=== PATIENT | female | born 1945 | race Caucasian/White ===

== ENCOUNTER → 2018-06-30 13:05 | Outpatient (CLI) | payer MEDICARE, BC, SELFPAY ==
[2018-06-30 12:09] VITALS: BMI 29.2
== END ==
PROVIDERS: Family Provider Internal Medicine; PCP Internal Medicine; Referring Provider Obstetrics & Gynecology; Visit Provider Obstetrics & Gynecology
DX: N89.8 Other specified noninflammatory disorders of vagina (principal)
CPT/HCPCS: 87070; 87205

== ENCOUNTER → 2018-08-14 08:34 | Outpatient (CLI) | payer MEDICARE, BC, SELFPAY ==
[2018-06-30 12:09] VITALS: BMI 29.2
--- NOTE | 2018-08-14 08:37 | BI_ITS ---
MAMMOGRAPHY - BILATERAL SCREENING REASON FOR EXAM: Female, 72 years old. Routine annual screening examination. PERTINENT HISTORY: Sister with breast cancer. Grandmother with breast cancer. Remote left breast biopsy. TECHNIQUE: Digital bilateral breast fritz (3D mammographic acquisition) in the CC and MLO projections. 2-D mediolateral oblique (MLO) and craniocaudad (CC) views of both breasts were obtained. CAD: Full Field Digital Mammography with Computer Added Detection was performed. COMPARISON: Comparison is made with prior abdomen examination of July 26, 2016. FINDINGS: Breast Composition: The breasts are extremely dense, which lowers the sensitivity of mammography. There are no dominant masses or suspicious calcifications. A tissue clip marker is seen in the slightly inferior medial aspect of the left breast. Stable appearance of the small bilateral axillary lymph nodes. No other significant abnormalities are identified. There has been no significant change since the prior study. BI/SCREEN MAMM (CAD) W/FRITZ BILAT IMPRESSION: Stable bilateral screening mammogram. Yearly follow-up mammogram recommended. (A) ASSESSMENT CATEGORY: BIRADS Category 2: Benign. A letter regarding these results will be sent to the patient by the facility within 30 days. Approximately 10% of breast cancers are not detected by mammography. A normal mammogram should not delay biopsy of a clinically suspicious abnormality. [id number] Electronically Signed: Loyd Reyez, at 9:59 EDT , Service support ,
--- NOTE | 2018-08-14 08:58 | BD_ITS ---
STUDY: DUAL ENERGY X-RAY ABSORPTIOMETRY / DXA REASON FOR EXAM: Female, 72 years old. Early menopause. Loss of height. TECHNIQUE: Bone Mineral Density (BMD) measurements of lumbar spine and bilateral hips were obtained. COMPARISON: None. FINDINGS: Lumbar Spine (L1-L4): g/cm2 (1.304) / T-score (0.9) / Z-score (2.6) Findings are suggestive of normal bone density with a low fracture risk. Left Femur Total: g/cm2 (1.121) / T-score (0.9) / Z-score (2.5) Left Femoral Neck: g/cm2 (1.046) / T-score (0.1) / Z-score (1.8) Right Femur Total: g/cm2 (1.108) / T-score (0.8) / Z-score (2.4) Right Femoral Neck: g/cm2 (1.052) / T-score (0.1) / Z-score (1.9) BD/Dexa Bone Density Study IMPRESSION: The patient is considered normal as outlined below according to [place] Organization (WHO) criteria with a low fracture risk. Reference Information: The T-score is the number of standard deviations above or below the standard which is normal for young adults at their peak bone mineral density. The World Health Organization (WHO) interprets the T-scores as follows: Above -1 Normal bone density Between -1 and -2.5 Osteopenia Equal to / or below -2.5 Osteoporosis As a practical clinical guideline, osteopenia may be graded as follows: Mild -1 through -1.5 Moderate -1.6 through -2.0 Severe -2.1 through -2.4 The Z-score is the number of standard deviations above or below age-matched controls. A Z-score of less than -1.5 would be considered abnormal. References: 1. NIH Osteoporosis and Related Bone Diseases http://www.osteo.org 2. International Society for Clinical Densitometry http://www.iscd.org 3. National Osteoporosis Foundation http://www.nof.org Electronically Signed: Loyd Reyez, at 10:43 EDT , Service support ,
== END ==
PROVIDERS: Family Provider Internal Medicine; PCP Internal Medicine; Referring Provider Obstetrics & Gynecology; Visit Provider Obstetrics & Gynecology
DX: Z12.31 Encounter for screening mammogram for malignant neoplasm of breast (principal); E28.39 Other primary ovarian failure
CPT/HCPCS: 77063; 77067; 77080

== ENCOUNTER 2018-08-20 07:16 | Observation (INO) | payer MEDICARE, BC, SELFPAY ==
[2018-06-30 12:09] VITALS: BMI 29.2
[2018-08-20 07:16] VITALS: BP 168/73; PULSE 81; RESP 18; TEMP 36.1; O2SAT 99; BMI 33.7
--- NOTE | 2018-08-20 07:20 | CT_ITS ---
STUDY: CT ABDOMEN AND PELVIS WITH CONTRAST REASON FOR EXAM: Female, 72 years old. Generalized abdominal pain with nausea. History of colostomy for Hirschsprung's disease. RADIATION DOSAGE (If Supplied By Facility): CTDIvol = ( 14.49 ) mGy, DLP = ( 907.21 ) mGycm TECHNIQUE: Transaxial images were obtained from the dome of the diaphragm to the symphysis pubis without oral contrast. 100 IV Isovue 300 was administered. Sagittal and coronal images were reconstructed. Individualized dose optimization techniques were used for this CT. COMPARISON: None. FINDINGS: Mild degree of increased linear markings at the lung bases suggestive of scarring slightly worse on the right side. Coronary artery calcification. Normal liver. Normal gallbladder and extrahepatic biliary system. Normal spleen. Normal pancreas. Normal bilateral adrenal glands. Normal right kidney. Normal left kidney. Moderate sized hiatal hernia. An ostomy is seen in the left anterior mid abdomen. There is evidence of herniation of small bowel loops as well as the mesentery within the ostomy with a focally dilated small bowel loop at that site. A large amount of fecal material is seen in the colon. There is diffuse circumferential wall thickening of the rectum with dense posterior calcifications. The appendix is visualized and appears normal. There is diffuse atherosclerotic calcification of the abdominal aorta, without a demonstrated aneurysm. Normal inferior vena cava. Normal retroperitoneum. An air-fluid level is seen within the urinary bladder. This may be related to possible manipulation with a Young catheter. Clinical correlation is recommended. There is a small umbilical hernia containing fat. There are diffuse degenerative changes of the visualized lumbar spine. CT/Abdomen/Pelvis WITH Contrast IMPRESSION: An ostomy seen in the left anterior mid abdominal wall with herniation of small bowel loops with dilated small bowel loops and air-fluid level. Bowel obstruction and possible strangulation should be ruled out. Large amount of fecal material is seen in the colon. Electronically Signed: Loyd Reyez, at 8:49 EDT , Service support ,
--- NOTE | 2018-08-20 07:22 | ED.VIS.GEN ---
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 having BM in colostomy currently. Narrative: Patient states she has a colostomy because of defect. She has had several bowel obstructions in the past. She states she felt like she had one a week ago, the pain was similar to this but it resolved spontaneously. She did not come to the hospital. She cannot tell me any details about it because she feels so sick and she has very bad hearing. Prior similar symptoms: Yes Recent Illness/Hospitalization: Yes - a cold that is improving. no hospitalizations. 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 Pressley - surgery Prior records reviewed: Yes - 1 prior ED visit. No prior abd imaging here. Surgical History: - - colostomy Lives: Spouse/ Significant Other Smoking Status: Never smoker Review of Systems ROS: Unable to Obtain - limited eval due to very hard of hearing and acuity General: Reports: Malaise. Denies: Chills, Fever Cardiovascular: Denies: Chest pain, Palpitations Respiratory: Reports: Cough. Denies: Dyspnea, Sputum Gastrointestinal: Reports: Abdominal pain, Nausea. Denies: Vomiting, Diarrhea, Melena, Hematochezia Genitourinary: Denies: Dysuria, Hematuria Musculoskeletal: Denies: Neck pain, Back pain, Swelling Neurological: Denies: Headache, Weakness, Numbness Physical Exam Inital Vital Signs reviewed: Yes - hypertensive. otherwise, normal. General: Well nourished, Well developed, No Acute Distress - but ill-appearing, nauseated, holding emesis bag Head: Normocephalic, Atraumatic Eyes: Perrl, EOMI ENT: Moist mucous membranes, No rhinorrhea Neck: Supple, Nontender, No lymphadenopathy Cardiovascular: Regular rate, Regular rhythm, No murmurs Respiratory: No distress, CTA bilaterally, Chest nontender Abdomen: Soft, Nondistended, Tender - diffusely. worse throughout R side. colostomy LLQ, mildly tender around it, normal-appearing, nonbloody nonmelanotic loose stool within bag. no palpable hernias/masses., Guarding - throughout R side, Hypoactive bowel sounds. Negative for: Rebound tenderness Back: Nontender, Normal Inspection Extremities: Nontender, No edema Skin: Normal color, No rash Neurological: Alert, Oriented x3, Cranial nerves II-XII grossly intact, Normal Strength, Normal Sensation Psychological: Normal affect, Normal Mood Diagnostic/Tx/Re-eval Impressions Abdomen/Pelvis CT 08/20/18 07:20 IMPRESSION: An ostomy seen in the left anterior mid abdominal wall with herniation of small bowel loops with dilated small bowel loops and air-fluid level. Bowel obstruction and possible strangulation should be ruled out. Large amount of fecal material is seen in the colon. Electronically Signed: Loyd Reyez, at 8:49 EDT , Service support , 08/20/18 07:20 Abdomen/Pelvis WITH Contrast [CT] Stat Laboratory Results 08/20/18 08/20/18 07:30 07:30 WBC 9.7 RBC 4.74 Hgb 13.8 Hct 41.0 MCV 86.5 MCH 29.1 MCHC 33.7 RDW 13.7 RDW Differential 43.2 Plt Count 304 MPV 10.8 Immature Gran % (Auto) 0.100 Neut % (Auto) 56.8 Lymph % (Auto) 30.1 [place] % (Auto) 8.0 Eos % (Auto) 4.6 Baso % (Auto) 0.4 Absolute Neuts (auto) 5.5 Absolute Lymphs (auto) 2.90 Total Counted Not Reportable Sodium 139 Potassium 2.8 L Chloride 104 Carbon Dioxide 26.0 Anion Gap 9 BUN 13 Creatinine 0.78 Estim Creat Clear Calc 61.66 Est GFR (MDRD) Af Amer 94 Est GFR (MDRD) Non-Af 77 BUN/Creatinine Ratio 16.7 Glucose 173 H Calcium 8.9 Total Bilirubin 0.40 AST 24 ALT 28 Alkaline Phosphatase 129 H Total Protein 7.4 Albumin 3.9 Globulin 3.5 Albumin/Globulin Ratio 1.1 Lipase 99 - Medical Decision Making Patient in a significant amount of pain. She was initially given morphine 4 mg and Zofran along with some gentle IV fluid hydration, however she had no relief from the discomfort, no improvement in her nausea, unable to drink any of the contrast that we had her attempt. She was given Dilaudid and Phenergan subsequently, and as soon as we had confirmation that her renal function was good, she was sent for IV contrasted CT, which radiology interpreted as herniation of small bowel loops into her colostomy area with accompanying acute small bowel obstruction and possible strangulation of small bowel. I was not able to localize this this definitively, clinically with palpation. Discussed with Dr. Luke with surgery who evaluated the patient in the emergency department and is taking her to surgery emergently to avoid perforation and bowel necrosis. - Critical Care Time Critical care time (excluding procedures): 30-74 minutes - 35 min, Discussing w/Patient &/or Family/Anesthesia Director, Discussing w/Consultants, Arranging Admission or Transfer, Performing Direct Patient Care at Bedside ED Disposition - Plan for ED Patient: Disposition: Acute Care [facility] Diagnosis: Small bowel obstruction, Strangulation of small intestine Referrals: Jordi Corona MD [Primary Care Provider] -
[2018-08-20] MEDS: 0.9% Normal Saline 1,000 ML 200 ML IV (07:34)
[2018-08-20] MEDS: Morphine 4 MG/ML Syringe IV (07:34)
[2018-08-20] MEDS: Ondansetron 4 MG/2 ML Vial IV (07:34)
[2018-08-20 07:55] LABS: Absolute Neutrophil Count 5.5 X10^3/uL (2.0-7.7); Basophil# 0.04 X10^3/uL; Basophil% 0.4 % (0-1); Eosinophil# 0.44 X10^3/uL; Eosinophils% 4.6 % (0-5); Hemoglobin 13.8 g/dl (12.0-15.0); Lymphocyte % 30.1 % (19-41); Mean Corp Hgb Conc 33.7 g/gl (32-36); Mean Corpuscular Hgb 29.1 pg (27.0-32.0); Mean Corpuscular Volume 86.5 fL (81-99); Mean Platelet Vol. 10.8 fl (6.2-12.0); Monocyte# 0.77 X10^3/uL; Neutrophil # 5.49 X10^3/uL (2.7-7.7); Neutrophil % 56.8 % (47-70); Platelet Count 304 K/mm3 (150-450); RBC Distribution Width CV 13.7 % (11.6-14.6); RBC Distribution Width SD 43.2 fl (35.1-43.9); Red Blood Count 4.74 M/mm3 (4.2-5.4); White Blood Count 9.7 K/mm3 (4.4-11.0)
[2018-08-20] MEDS: HYDROmorphone 0.5 MG/0.5 ML SYRINGE IV (07:56)
[2018-08-20] MEDS: proMETHazine 25 MG/ML Syringe 6.25 MG IV (07:56)
[2018-08-20 08:00] LABS: POSITIVE COUNT NO; POSITIVE DIFFERENTIAL NO; POSITIVE MORPHOLOGY NO
[2018-08-20 08:08] LABS: ALB/GLOB Ratio 1.1 RATIO (0.9-2.4); AST(SGOT) 24 U/L (15-37); Alanine Aminotransfer ALT/SGPT 28 U/L (13-56); Albumin, Serum 3.9 g/dL (3.2-5.0); Alkaline Phosphatase 129 U/L (45-117); Anion Gap 9 (5-15); BUN 13 mg/dL (7-18); BUN/Creat Ratio 16.7 RATIO (10-20); Calcium,Total 8.9 mg/dL (8.5-10.1); Chloride 104 mmol/L (98-107); Creatinine, Serum 0.78 mg/dL (0.55-1.02); EST Glomerular Filtration Rate 77 mL/min (>60); Est Glom Filt Rate - Afr Amer 94 mL/min (>60); Estimated Creatinine Clearance 61.66 ml/min; Globulin 3.5 g/dL (2.2-4.2); Glucose 173 mg/dL (74-106); Lipase 99 U/L (73-393); Potassium 2.8 mmol/L (3.5-5.1); Protein, Total 7.4 g/dL (6.4-8.2); Sodium Level 139 mmol/L (136-145)
[2018-08-20] MEDS: HYDROmorphone 1 MG/ML Syringe IV (08:16)
--- NOTE | 2018-08-20 09:42 | NURSING ---
MED SURG/ SURGERY ALIDA FLOWER
--- NOTE | 2018-08-20 09:50 | ED.RN ---
pt refuses weinstein. states it cannot be placed while I'm awake. dr perez made aware.
--- NOTE | 2018-08-20 09:51 | EKG12_ITS ---
Test Reason : PRE OP Blood Pressure : / mmHG Vent. Rate : 082 BPM Atrial Rate : 082 BPM P-R Int : 134 ms QRS Dur : 088 ms QT Int : 410 ms P-R-T Axes : 049 -14 051 degrees QTc Int : 479 ms Normal sinus rhythm Nonspecific ST and T wave abnormality Abnormal ECG Confirmed by ZAKIYA CASTELLANOS, MICHELET ([id number]), manuscript editor CAROLYNN BALL ([id number]) on 08/22/2018 11:06:26 AM Referred By: Danica Almaguer Confirmed By:MICHELET SIGALA MD
[2018-08-20] MEDS: Potassium Chloride 10mEq/100mL 10 MEQ/100 ML IV.SOLN. 100 MEQ IV BOLUS ×4 (09:52→14:41)
[2018-08-20 09:53] LABS: Mucous, Urine 0 SEEN /hpf (<or=2+)
[2018-08-20 09:55] VITALS: BP 133/91; PULSE 93; RESP 18; TEMP 36.4; O2SAT 98; BMI 33.7
[2018-08-20 09:56] LABS: Color, Urine Yellow (Yellow); Glucose, Dipstick Normal (Normal); Ketone-Dipstick Negative (Negative); Leukocyte Esterase-Dipstick 500 /ul (Negative); Nitrite-Dipstick Negative (Negative); Occult Blood-Urine 10 /ul (Negative); Protein-Dipstick Negative (Negative); Urine Bilirubin Dipstick Negative (Negative); Urine Clarity Sl. Cloudy (Clear); Urine Urobilinogen Normal (Normal)
[2018-08-20 10:05] VITALS: BP 133/91; PULSE 99; RESP 18; O2SAT 97
[2018-08-20 10:06] LABS: Bacteria 2+ /hpf (None Seen); Red Blood Cells-Urine 0-5 SEEN /hpf (0-5); Squamous Epithelial Cells - UA 0-5 SEEN /hpf (5-10); White Blood Cells 25-50 SEEN /hpf (0-5)
--- NOTE | 2018-08-20 10:14 | NURSING ---
NEW ROOM 306
--- NOTE | 2018-08-20 10:35 | HP.PCM_ITS ---
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 Small bowel obstruction. The patient is a 72 year old F who presented with acute onset of severe amount of abdominal pain which started this morning. Patient has an extensive abdominal surgical history. She has a history of Hirschsprung's disease. She had had four colostomy revisions in the past with her last one [place] [address] Doshi. Patient notes she had considerable amount of pain/discomfort last week which lasted a few days. She noted this eventfully went away. Then towards the end of last week she had developed an upper respiratory congestion. She noted a lot of coughing which lead to severe amount of pain. She noted nausea associated with the pain. She denies vomiting. She notes changing her ostomy bag more frequently within the last week. She denies urinary issues unless she has the abdominal pain and then this makes it hard to urinate. She has a little urinary incontinence otherwise she has no problems. She notes every 3-4 months she has episodes of abdominal pain which last a few days. She takes colace and it resolves within a few days. She denies being told she has a hernia. She notes taking a potassium supplement at home. CT scan of the ab/pel demonstrated moderate sized hiatal hernia, herniation of small bowel loops as well as mesentery within the ostomy with focally dilated small bowel loop at the site. Large amount of fecal material within the colon. Diffuse thickening of the rectum. Small umbilical hernia. Air-filled level seen within urinary bladder. WBC 9.7, Hgb 13.8, Hct 41.0, Plt 304. Potassium 2.8. Past Medical History Past Medical History (Chronic Problems): Chronic Problems (Last Updated 07/01/18 @ 03:32 by Danica Almaguer MD) Congenital anomaly of intestine (Chronic) Menopausal vasomotor syndrome (Chronic) Hypertonicity of bladder (Chronic) Hypothyroidism (Chronic) Colostomy status (Chronic) Hyperlipidemia (Chronic) Generalized arthritis (Chronic) Anxiety (Chronic) Essential hypertension (Chronic) Medical History: Medical History (Last Reviewed 08/20/18 @ 10:49 by Thu Birch PA-C) Congenital anomaly of intestine (Chronic) Q45.9 Menopausal vasomotor syndrome (Chronic) N95.1 Hypertonicity of bladder (Chronic) N31.8 Hypothyroidism (Chronic) E03.9 Hyperlipidemia (Chronic) E78.5 Generalized arthritis (Chronic) M19.90 Anxiety (Chronic) F41.9 Essential hypertension (Chronic) I10 Hirschsprung's disease Q43.1 colostomy Impaired fasting glucose R73.01 Allergies Sulfa (Sulfonamide Antibiotics) Allergy (Verified 08/20/18 07:25) Hives Home Medications: Ambulatory Orders Medication Instructions Recorded Ascorbic Acid [Vitamin C] 500 mg PO DAILY@0800 08/24/16 Calcium Carbonate/Vitamin D3 1 ea PO DAILY 08/24/16 [Caltrate 600 Plus D3 Tablet] Cholecalciferol (Vitamin D3) 1,000 unit PO DAILY 08/24/16 [Vitamin D3] Diltiazem HCl [Tiazac] 420 mg PO DAILY 08/24/16 Esomeprazole Mag Trihydrate 10 mg PO QHS 08/24/16 [Nexium] Levothyroxine [Synthroid] 50 mcg PO DAILY 08/24/16 Losartan Potassium [Cozaar] 25 mg PO BID 08/24/16 Multivitamin [Daily Multiple 1 ea PO DAILY 08/24/16 Vitamin] Tolterodine Tartrate [Detrol LA] 4 mg PO DAILY 08/24/16 hydroCHLOROthiazide 12.5 mg PO DAILY 08/24/16 [Hydrochlorothiazide] traMADol [Ultram (G)] 50 mg PO Q6H PRN PRN 08/24/16 antiarthritic combination no.2 900 1 mg PO DAILY tab 06/30/18 mg tablet hydrocortisone 2.5 % topical cream 1 applic TOPICAL QHS 06/30/18 meloxicam 15 mg tablet 15 mg PO DAILY 06/30/18 pravastatin 10 mg tablet 20 mg PO QHS tab 06/30/18 Venlafaxine XR [Effexor Xr] 75 mg PO DAILY 08/20/18 Surgical History: Surgical History (Last Updated 06/30/18 @ 11:54 by Clarita Weldon) Colostomy status (Chronic) Z93.3 H/O: hysterectomy Z90.710 History of tonsillectomy Z90.89 Hx of total knee arthroplasty Z96.659 bilateral S/P colostomy Z93.3 Surgical History: appendectomy - 1968, hysterectomy - Total- 1984, - - colostomy 1967, 1972, 1982, 1985 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 Lives: Spouse/ Significant Other Smoking Status: Never smoker - *Family History Maternal Family History: Family History (Last Updated 06/30/18 @ 11:55 by Clarita Weldon) Mother Hypertension Father Myocardial infarction Grandmother Liver cancer Sister Breast cancer History Items: Pulmonary Disease Paternal Family History: Family History (Last Updated 06/30/18 @ 11:55 by Clarita Weldon) Mother Hypertension Father Myocardial infarction Grandmother Liver cancer Sister Breast cancer History Items: Heart Disease Review of Systems Constitutional: Reports: Anorexia, Weight Change - weight loss from 168 to 161 HEENT: Reports: Difficulty Hearing Cardiovascular: Reports: Chest Pressure - upper respiratory infection Respiratory: Reports: Cough Gastrointestinal: Reports: Abdominal Pain, Diarrhea, Nausea. Denies: Hematochezia, Melena, Vomiting Genitourinary: Reports: Incontinence, Urgency Musculoskeletal: Denies: Joint Pain, Joint Tenderness Skin: Denies: Rash, Wounds Neurological: Denies: Numbness, Tingling, Focal weakness Psychiatric: Reports: Anxiety Hematologic/ Lymphatic: Denies: Easy Bruising, Easy Bleeding VTE Information - Inpt Only VTE Present on Admission: Yes VTE Mechan Device Prophylaxis: SCD's Patient Problems: Active and Suspected Problems (Last Updated 07/01/18 @ 03:32 by Danica Almaguer MD) Small bowel obstruction (Acute) Strangulation of small intestine (Acute) Abdominal pain (Acute) - Physical Exam General: Alert, Oriented x3, Cooperative HEENT: Atraumatic, PERRLA, EOMI, Normocephalic Neck: Supple, No JVD, Negative Carotid Bruits Lungs: Clear to auscultation, Normal air movement Cardiovascular: Regular rate, No murmurs Abdomen: Soft, Distended, Obese, Guarding, Rebound Tenderness, Tender - generalized, Hernia - within the colostomy, - - multiple healed incisions Extremities: No edema, Capillary Refill Less than 3 Seconds Skin: No rashes, No breakdown Musculoskeletal: No Tenderness to Palpation of Joints or Extremities Neurological: Neuro grossly intact Psych/Mental Status: Normal Affect, Appropriate Vital Signs Temp Pulse Resp BP Pulse Ox 97.5 F L 99 18 133/91 H 97 08/20/18 09:55 08/20/18 10:05 08/20/18 10:05 08/20/18 10:05 08/20/18 10:05 Oxygen Delivery Method Room Air Weight: 166 lb 14.239 oz Body Mass Index (BMI) 33.7 Laboratory Tests Past 24 Hrs 08/20/18 08/20/18 08/20/18 07:30 07:30 09:45 WBC 9.7 RBC 4.74 Hgb 13.8 Hct 41.0 MCV 86.5 MCH 29.1 MCHC 33.7 RDW 13.7 RDW Differential 43.2 Plt Count 304 MPV 10.8 Immature Gran % (Auto) 0.100 Neut % (Auto) 56.8 Lymph % (Auto) 30.1 [place] % (Auto) 8.0 Eos % (Auto) 4.6 Baso % (Auto) 0.4 Absolute Neuts (auto) 5.5 Absolute Lymphs (auto) 2.90 Total Counted Not Reportable Sodium 139 Potassium 2.8 L Chloride 104 Carbon Dioxide 26.0 Anion Gap 9 BUN 13 Creatinine 0.78 Estim Creat Clear Calc 61.66 Est GFR (MDRD) Af Amer 94 Est GFR (MDRD) Non-Af 77 BUN/Creatinine Ratio 16.7 Glucose 173 H Calcium 8.9 Total Bilirubin 0.40 AST 24 ALT 28 Alkaline Phosphatase 129 H Total Protein 7.4 Albumin 3.9 Globulin 3.5 Albumin/Globulin Ratio 1.1 Lipase 99 Urine Color Yellow Urine Clarity Sl. Cloudy Urine pH 7.0 Ur Specific [place] 1.010 Urine Protein Negative Urine Glucose (UA) Normal Urine Ketones Negative Urine Occult Blood 10 H Urine Nitrite Negative Urine Bilirubin Negative Urine Urobilinogen Normal Ur Leukocyte Esterase 500 H Urine RBC 0-5 SEEN Urine WBC 25-50 SEEN Ur Squamous Epith Cells 0-5 SEEN Urine Bacteria 2+ Urine Mucus 0 SEEN Assessment/Plan All Active Problems (Last Updated 07/01/18 @ 03:32 by Danica Almaguer MD) Small bowel obstruction (Acute) Strangulation of small intestine (Acute) Abdominal pain (Acute) I am seeing this patient in conjunction with Dr. Pressley Impression: Left upper quadrant hernia associated with small bowel dilatation at the colostomy site. Plan: Patient has requested Dr. Pressley. Patient was discussed with Dr. Pressley. We will plan to admit patient for observation to med/surg floor. Recommend NPO, IV hydration, and bowel rest. Obtain CXR. Surgical intervention may be recommended at this hospitalization if patient's symptoms progress. Future repair of the hernia will need to be discussed with the patient at some point, hopefully in an elective setting. Patient has had the opportunity to ask and have questions answered. Patient verbally understands and agrees with the plan. Thank you for allowing us to participate in this patient's care. Code Visit Office Visits / Consults: [id number] IP Consult L3
[2018-08-20 10:41] VITALS: BMI 33.7
[2018-08-20 10:42] VITALS: BP 136/66; PULSE 90; RESP 18; TEMP 36.6; O2SAT 97
[2018-08-20 10:58] VITALS: BMI 33.7
--- NOTE | 2018-08-20 11:25 | RAD_ITS ---
STUDY: X-RAY CHEST REASON FOR EXAM: Female, 72 years old. Cough, shortness of breath and abdominal pain. TECHNIQUE: PA and lateral views of the chest. COMPARISON: None. FINDINGS: Hyperinflation. Mild increased markings at the right lung base suggestive of atelectasis and/or scarring. There is no demonstrated pleural abnormality. Normal size heart. Normal mediastinum and zoltan. Normal visualized pulmonary arteries. There is atherosclerotic calcification of the aortic arch with tortuosity. There is demineralization of the osseous structures. Normal visualized ribs, clavicles, and shoulders. Moderate sized hiatal hernia. RAD/Chest PA and Lateral IMPRESSION: Hyperinflation. Mild increased markings at the right lung base suggestive of a linear atelectasis and/or scarring. Moderate sized hiatal hernia. Electronically Signed: Loyd Reyez, at 13:11 EDT , Service support ,
[2018-08-20 16:12] VITALS: BP 152/83; PULSE 86; RESP 18; TEMP 36.8; O2SAT 95
[2018-08-20] MEDS: Lactated Ringers 1,000 ML 150 ML IV ×2 (16:23→23:24)
[2018-08-20] MEDS: guaiFENesin 10 ML UDC (200MG/10ML) 20 ML PO (19:23)
[2018-08-20 20:57] VITALS: BP 134/87; PULSE 92; RESP 16; TEMP 37.6; O2SAT 100
[2018-08-20] MEDS: Pantoprazole Sodium 20 MG Tablet PO (21:18)
[2018-08-20] MEDS: Pravastatin 20 MG Tablet PO (21:18)
[2018-08-20] MEDS: Losartan Potassium 25 MG Tablet PO (21:18)
[2018-08-20] MEDS: Morphine 2 MG/ML Syringe IV (23:46)
[2018-08-21 03:06] VITALS: BP 138/65; PULSE 95; RESP 16; TEMP 37.6; O2SAT 93
[2018-08-21 05:44] LABS: Absolute Lymphocyte Count 1.44 X10^3/ul (0.83-4.51); Absolute Neutrophil Count 4.4 X10^3/uL (2.0-7.7); Basophil# 0.03 X10^3/uL; Basophil% 0.4 % (0-1); Eosinophil# 0.26 X10^3/uL; Eosinophils% 3.9 % (0-5); Hematocrit 36.7 % (37-47); Lymphocyte # 1.44 X10^3/ul (4.0); Lymphocyte % 21.5 % (19-41); Mean Corp Hgb Conc 32.7 g/gl (32-36); Mean Corpuscular Hgb 28.9 pg (27.0-32.0); Mean Corpuscular Volume 88.4 fL (81-99); Mean Platelet Vol. 11.1 fl (6.2-12.0); Neutrophil # 4.36 X10^3/uL (2.7-7.7); Neutrophil % 65.1 % (47-70); Platelet Count 285 K/mm3 (150-450); Red Blood Count 4.15 M/mm3 (4.2-5.4); White Blood Count 6.7 K/mm3 (4.4-11.0)
[2018-08-21 05:49] LABS: Anion Gap 6 (5-15); BUN 7 mg/dL (7-18); BUN/Creat Ratio 11.5 RATIO (10-20); Calcium,Total 8.1 mg/dL (8.5-10.1); Chloride 110 mmol/L (98-107); Creatinine, Serum 0.61 mg/dL (0.55-1.02); EST Glomerular Filtration Rate 103 mL/min (>60); Est Glom Filt Rate - Afr Amer 124 mL/min (>60); Estimated Creatinine Clearance 61.66 ml/min; Glucose 105 mg/dL (74-106); Potassium 3.3 mmol/L (3.5-5.1); Sodium Level 142 mmol/L (136-145)
[2018-08-21] MEDS: guaiFENesin 10 ML UDC (200MG/10ML) 20 ML PO ×2 (05:52→11:30)
[2018-08-21] MEDS: Levothyroxine 50 MCG Tablet PO (05:52)
[2018-08-21] MEDS: Lactated Ringers 1,000 ML 150 ML IV ×2 (05:52→14:25)
[2018-08-21 05:54] LABS: POSITIVE COUNT NO; POSITIVE DIFFERENTIAL NO; POSITIVE MORPHOLOGY NO
[2018-08-21 07:03] VITALS: O2SAT 93
--- NOTE | 2018-08-21 10:11 | PN.SURG_ITS ---
Patient Problems: Active and Suspected Problems (Last Reviewed 08/20/18 @ 10:49 by Tuh Birch PA-C) Small bowel obstruction (Acute) Strangulation of small intestine (Acute) Abdominal pain (Acute) Subjective: Patient evaluated resting comfortably in bed. Her main complaint is her cough. Patient notes abdominal soreness. She notes her abdominal pain is much improved. She denies nausea. She notes loose stool within her ostomy bag. - Physical Exam General: Alert, Oriented x3, Cooperative Abdomen: Bowel Sounds Present, Soft, Distended - slightly, Tender - generalized; mild tenderness, Hernia - Parastomal hernia, - - Ostomy intact Vital Signs Temp Pulse Resp BP Pulse Ox 99.7 F H 95 16 138/65 H 93 08/21/18 03:06 08/21/18 03:06 08/21/18 03:06 08/21/18 03:06 08/21/18 07:03 Oxygen Delivery Method Room Air Weight: 166 lb 14.239 oz Body Mass Index (BMI) 33.7 Intake and Output for Last 24 Hours 08/19/18 08/20/18 08/21/18 23:59 23:59 23:59 Intake Total 1875 / 1875 981 / 981 Output Total 800 / 800 Balance 1075 / 1075 981 / 981 Laboratory Tests Past 24 Hrs 08/20/18 08/21/18 08/21/18 09:45 05:00 05:00 WBC 6.7 RBC 4.15 L Hgb 12.0 Hct 36.7 L MCV 88.4 MCH 28.9 MCHC 32.7 RDW 14.0 RDW Differential 45.0 H Plt Count 285 MPV 11.1 Immature Gran % (Auto) 0.100 Neut % (Auto) 65.1 Lymph % (Auto) 21.5 Dickens % (Auto) 9.0 Eos % (Auto) 3.9 Baso % (Auto) 0.4 Absolute Neuts (auto) 4.4 Absolute Lymphs (auto) 1.44 Total Counted Not Reportable Sodium 142 Potassium 3.3 L Chloride 110 H Carbon Dioxide 26.0 Anion Gap 6 BUN 7 Creatinine 0.61 Estim Creat Clear Calc 61.66 Est GFR (MDRD) Af Amer 124 Est GFR (MDRD) Non-Af 103 BUN/Creatinine Ratio 11.5 Glucose 105 Calcium 8.1 L Urine RBC 0-5 SEEN Urine WBC 25-50 SEEN Ur Squamous Epith Cells 0-5 SEEN Urine Bacteria 2+ Urine Mucus 0 SEEN Medical Necessity - Tobacco Use Smoking Status: Never smoker Assessment/Plan All Active Problems (Last Reviewed 08/20/18 @ 10:49 by Thu Birch PA-C) Small bowel obstruction (Acute) Strangulation of small intestine (Acute) Abdominal pain (Acute) I am seeing this patient in conjunction with Dr. Pressley Parastomal hernia Will advance to clear liquids and then full liquids. Probable discharge today or tomorrow pending tolerating a diet. We will continue to monitor this patient Will refer patient to Dr. Quijano for large parastomal hernia and colonoscopy Code Visit Inpatient E&M: 75225 Subs Hosp L1
--- NOTE | 2018-08-21 10:42 | CASEMGMT ---
RN CM in to see patient to inquire about discharge needs. Patient denies DME or HHC needs at this time. Patient did inquire about ostomy supplies and billing through [facility]. RN ELVIRA updated patient that CM would inquire with Wound/Ostomy Nurse regarding resources. VIOLA FELIX called Wound/Ostomy Nurse and updated regarding request. CM will remain available should discharge needs arise.
[2018-08-21 10:47] VITALS: BP 150/103; PULSE 79; RESP 18; TEMP 37.1; O2SAT 97
[2018-08-21] MEDS: Losartan Potassium 25 MG Tablet PO (10:53)
[2018-08-21] MEDS: dilTIAZem CD 120 MG Capsule PO (10:53)
[2018-08-21] MEDS: Venlafaxine XR 75 MG Capsule PO (10:53)
[2018-08-21] MEDS: hydroCHLOROthiazide 12.5mg 12.5 MG PO (10:54)
[2018-08-21] MEDS: Tolterodine Tartrate 4 MG CAP.SA PO (10:54)
[2018-08-21] MEDS: dilTIAZem CD 300 MG Capsule PO (10:57)
[2018-08-21] MEDS: Enoxaparin 40 MG/0.4 ML Syringe SC (10:58)
--- NOTE | 2018-08-21 13:34 | NURSING ---
Was asked to see patient to assist in getting colostomy supplies for patient. pt states she used to get her ostomy supplies through [facility]. She is starting to get close to running out. Discussed a few options for patient. Agreed to get supplies through [employer] called and ordered supplies through [employer] at this time. script from Dr Corona faxed. Pt is aware that supplies should be there by Saturday or Saturday of next week. Pt was given the number for [facility] in case there are any issues. Pt very appreciative.
[2018-08-21 14:34] VITALS: BP 143/76; PULSE 72; RESP 18; TEMP 36.6; O2SAT 94
== END 2018-08-21 19:18 | disposition home or self-care (01) ==
LOC: ED 09:37 → MS3 10:15 → MS2 12:33 → MS3 08-21 07:16
PROVIDERS: Physician Assistant; Admitting Provider Surgery; Emergency Provider Emergency Medicine; Family Provider Internal Medicine; PCP Internal Medicine; Visit Provider Surgery
DX: K43.3 Parastomal hernia with obstruction, without gangrene (principal); I10 Essential (primary) hypertension; M19.90 Unspecified osteoarthritis, unspecified site; G89.29 Other chronic pain; E03.9 Hypothyroidism, unspecified; N31.8 Other neuromuscular dysfunction of bladder; E78.5 Hyperlipidemia, unspecified; Z79.899 Other long term (current) drug therapy; Q43.1 Hirschsprung's disease; F41.9 Anxiety disorder, unspecified; J06.9 Acute upper respiratory infection, unspecified
CPT/HCPCS: 36415; 71046; 74177; 80048; 80053; 81001; 83690; 85025; 93005; 96361; 96372; 96374; 96375; 96376; 99218; 99285; J7030; J7120; Q9967; A4216; G0378; J2405

== ENCOUNTER 2018-10-08 22:38 | Emergency (ER) | payer MEDICARE, BC, SELFPAY ==
[2018-10-08 22:40] VITALS: BP 157/96; PULSE 95; RESP 19; TEMP 36.8; O2SAT 93; BMI 32.3
--- NOTE | 2018-10-08 22:56 | CT_ITS ---
STUDY: CT ABDOMEN AND PELVIS WITHOUT CONTRAST REASON FOR EXAM: Female, 73 years old. Postop abdominal pain. Patient had colostomy revision of one week ago. Patient now has nausea, vomiting and diaphoresis. RADIATION DOSAGE (If Supplied By Facility): CTDIvol = ( 9.75 ) mGy, DLP = ( 472.43 ) mGycm TECHNIQUE: Transaxial images were obtained from the dome of the diaphragm to the symphysis pubis without oral contrast, and without intravenous contrast. Sagittal and coronal images were reconstructed. Individualized dose optimization techniques were used for this CT. COMPARISON: CT of the abdomen and pelvis dated August 20, 2018. FINDINGS: There is a right-sided pleural effusion. There is left basilar subsegmental atelectasis and right basilar subsegmental atelectasis. There is right basilar airspace consolidation and/or atelectasis. The visualized portions of the heart are within normal limits. There appears to be dense calcification of the mitral anulus. Normal liver. Normal gallbladder and extrahepatic biliary system. Normal spleen. There is diffuse atrophy of the pancreas. Normal bilateral adrenal glands. Normal right kidney. Normal left kidney. There is a large hiatal hernia, similar to previous study. There is dilated small bowel within the left side of the abdomen primarily. Maximum transverse dimension of the small bowel measures approximately 4 cm in greatest transverse dimension. The transition point it probably is associated with incarcerated bowel loops in a parastomal ventral hernia left lower quadrant. A similar appearance was present on the previous CT. Stool is visible throughout most of the colon. There may have been partial resection of the descending colon with what may represent a Cunha's pouch. There is non-visualization of the appendix. There is multifocal atherosclerotic calcification of the abdominal aorta, without a demonstrated aneurysm. Normal inferior vena cava. Normal retroperitoneum. Normal urinary bladder. There is absence of the uterus consistent with a prior hysterectomy. There is a left lower quadrant ostomy site with parastomal ventral hernia. There are diffuse degenerative changes of the visualized lumbar spine. CT/Abdomen/Pelvis without Cont IMPRESSION: Proximal small bowel obstruction possibly related to incarcerated bowel within a parastomal left lower quadrant ventral hernia. Electronically Signed: Laura Alves MD at 0:14 EDT , Service support ,
[2018-10-08] MEDS: Morphine 4 MG/ML Syringe IV (23:13)
[2018-10-08] MEDS: 0.9% Normal Saline 1,000 ML 1000 ML IV (23:13)
[2018-10-08] MEDS: Ondansetron 4 MG/2 ML Vial IV (23:13)
[2018-10-08 23:15] LABS: Absolute Lymphocyte Count 0.88 X10^3/ul (0.83-4.51); Absolute Neutrophil Count 8.2 X10^3/uL (2.0-7.7); Basophil# 0.03 X10^3/uL; Basophil% 0.3 % (0-1); Eosinophil# 0.07 X10^3/uL; Eosinophils% 0.7 % (0-5); Hematocrit 41.2 % (37-47); Lymphocyte # 0.88 X10^3/ul (4.0); Lymphocyte % 9.2 % (19-41); Mean Corpuscular Hgb 29.2 pg (27.0-32.0); Mean Platelet Vol. 9.8 fl (6.2-12.0); Monocyte# 0.42 X10^3/uL; Monocyte% 4.4 % (0-10); Neutrophil # 8.17 X10^3/uL (2.7-7.7); Platelet Count 354 K/mm3 (150-450); RBC Distribution Width CV 13.8 % (11.6-14.6); RBC Distribution Width SD 43.5 fl (35.1-43.9); Red Blood Count 4.79 M/mm3 (4.2-5.4); White Blood Count 9.6 K/mm3 (4.4-11.0)
[2018-10-08 23:17] LABS: POSITIVE COUNT NO; POSITIVE DIFFERENTIAL NO; POSITIVE MORPHOLOGY NO
[2018-10-08 23:32] LABS: ALB/GLOB Ratio 0.8 RATIO (0.9-2.4); AST(SGOT) 96 U/L (15-37); Alanine Aminotransfer ALT/SGPT 71 U/L (13-56); Albumin, Serum 3.5 g/dL (3.2-5.0); Alkaline Phosphatase 132 U/L (45-117); Anion Gap 7 (5-15); BUN 7 mg/dL (7-18); BUN/Creat Ratio 10.9 RATIO (10-20); Calcium,Total 9.1 mg/dL (8.5-10.1); Chloride 102 mmol/L (98-107); Creatinine, Serum 0.64 mg/dL (0.55-1.02); EST Glomerular Filtration Rate 97 mL/min (>60); Est Glom Filt Rate - Afr Amer 117 mL/min (>60); Estimated Creatinine Clearance 58.26 ml/min; Globulin 4.2 g/dL (2.2-4.2); Glucose 162 mg/dL (74-106); Lipase 162 U/L (73-393); Protein, Total 7.7 g/dL (6.4-8.2); Sodium Level 140 mmol/L (136-145)
--- NOTE | 2018-10-09 00:33 | NURSING ---
OK TO CANCEL SEPSIS SCREENING, PER DR TORRES
--- NOTE | 2018-10-09 01:00 | ED.VISSUMM ---
- ER Visit Summary Date of Service: 10/09/18 Chief Complaint: Abdominal pain, nausea, vomiting. History of Present Illness: The patient is a 73 F who presents with abdominal pain and vomiting. 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 She had surgery at [facility] 6 days ago for a parastomal hernia. Her pain was controlled while in the hospital but on her way home after discharge yesterday she began to develop increasing diffuse aching abdominal pain which is now severe. Over the last 6 to 8 hours she is also developed severe nausea and vomiting. No fevers. Physical Examination: Afebrile blood pressure 157/96 Moist mucous membranes Heart regular rate and rhythm Lungs clear Hypoactive bowel sounds diffuse abdominal tenderness surgical wound clean dry and intact Test Results: CBC CMP lipase notable for alk phos 132, ALT 71, AST 96, potassium 3.0. Lipase normal. CT of the abdomen and pelvis read as proximal small bowel obstruction possibly due to incarcerated bowel with parastomal left lower quadrant ventral hernia. Emergency Department Course and Treatment: Patient was treated here with IV fluids, morphine, Zofran with improvement of symptoms. I discussed findings with the patient. She was discussed with surgeon on-call for the patient's colorectal surgeon at [facility] who does accept the patient for transfer. Treatment Plan: [] Disposition: Transfer Impression: Small bowel obstruction This note was generated with [employer] dictation software. It may contain incorrect words, spelling, and punctuation that were not noted in review of the chart prior to signing ED Disposition - Plan for ED Patient: Referrals: Jordi Corona MD [Primary Care Provider] -
--- NOTE | 2018-10-09 01:03 | ED.DCSUM_ITS ---
- ER Visit Summary Date of Service: 10/09/18 Chief Complaint: Abdominal pain, nausea, vomiting. History of Present Illness: The patient is a 73 F who presents with abdominal pain and vomiting. 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 She had surgery at [facility] 6 days ago for a parastomal hernia. Her pain was controlled while in the hospital but on her way home after discharge yesterday she began to develop increasing diffuse aching abdominal pain which is now severe. Over the last 6 to 8 hours she is also developed severe nausea and vomiting. No fevers. Physical Examination: Afebrile blood pressure 157/96 Moist mucous membranes Heart regular rate and rhythm Lungs clear Hypoactive bowel sounds diffuse abdominal tenderness surgical wound clean dry and intact Test Results: CBC CMP lipase notable for alk phos 132, ALT 71, AST 96, potassium 3.0. Lipase normal. CT of the abdomen and pelvis read as proximal small bowel obstruction possibly due to incarcerated bowel with parastomal left lower quadra nt ventral hernia. Emergency Department Course and Treatment: Patient was treated here with IV fluids, morphine, Zofran with improvement of symptoms. I discussed findings with the patient. She was discussed with surgeon on-call for the patient's colorectal surgeon at [facility] who does accept the patient for transfer. Treatment Plan: [] Disposition: Transfer Impression: Small bowel obstruction This note was generated with [employer] dictation software. It may contain incorrect words, spelling, and punctuation that were not noted in review of the chart prior to signing ED Disposition - Plan for ED Patient: Referrals: Jordi Corona MD [Primary Care Provider] -
[2018-10-09 01:37] VITALS: BP 168/80; PULSE 94; RESP 22; O2SAT 95
[2018-10-09] MEDS: Ondansetron 4 MG/2 ML Vial IV (01:40)
[2018-10-09] MEDS: Morphine 4 MG/ML Syringe IV (01:40)
--- NOTE | 2018-10-09 02:13 | ED.RN ---
REPORT CALLED TO SUN AT .
== END 2018-10-09 02:19 | disposition short-term general hospital (02) ==
LOC: ED 23:02
PROVIDERS: Emergency Provider Emergency Medicine; Family Provider Internal Medicine; PCP Internal Medicine
DX: K56.609 Unspecified intestinal obstruction, unspecified as to partial versus complete obstruction (principal); Q43.1 Hirschsprung's disease; Z90.49 Acquired absence of other specified parts of digestive tract; Z93.3 Colostomy status; G89.18 Other acute postprocedural pain; I10 Essential (primary) hypertension; E78.00 Pure hypercholesterolemia, unspecified; K21.9 Gastro-esophageal reflux disease without esophagitis
CPT/HCPCS: 74176; 80053; 83690; 85025; 96361; 96374; 96375; 96376; 99282; J7030; J2405

== ENCOUNTER → 2019-02-23 14:44 | Outpatient (CLI) | payer MEDICARE, BC, SELFPAY ==
--- NOTE | 2019-02-23 14:47 | CT_ITS ---
STUDY: CT ABDOMEN AND PELVIS WITH CONTRAST REASON FOR EXAM: Female, 73 years old. Diffuse abdominal pain, previous colostomy RADIATION DOSAGE (If Supplied By Facility): CTDIvol = ( 11.78 ) mGy, DLP = ( 799.18 ) mGycm TECHNIQUE: CT images were obtained from the dome of the diaphragm to the symphysis pubis without oral contrast. IV/Oral Isovue 300 100 was administered. Sagittal and coronal images were reconstructed. Individualized dose optimization techniques were used for this CT. COMPARISON: 08 September 2018 FINDINGS: There is a large hiatal hernia containing a significant portion of the stomach in the chest. There is no gastric obstruction. There is no intestinal obstruction. There is a left lower quadrant colostomy with a large parastomal hernia containing loops of small bowel. The rectum is disconnected. Liver, pancreas spleen adrenals and kidneys are normal. Gallbladder is normal. There is no biliary dilation. CT/Abdomen/Pelvis WITH Contrast IMPRESSION: 1. No acute abdominal findings. 2. No intestinal obstruction. 3. Stable large hiatal hernia. 4. Stable large nonobstructing left lower quadrant parastomal hernia. Electronically Signed: Shamar Ford, at 16:19 EDT Tel , Service support ,
[2019-02-24 11:50] LABS: CREATININE FINGERSTICK 0.87 mg/dL (0.55-1.02)
== END ==
PROVIDERS: Family Provider Internal Medicine; PCP Internal Medicine
DX: R10.9 Unspecified abdominal pain (principal)
CPT/HCPCS: 74177; Q9967; A4216

== ENCOUNTER 2019-09-18 06:28 | Emergency (ER) | payer MEDICARE, BC, SELFPAY ==
[2019-09-18 06:29] VITALS: BP 155/89; PULSE 90; RESP 16; TEMP 37.3; O2SAT 95; BMI 33.1
--- NOTE | 2019-09-18 06:40 | EKG12_ITS ---
Test Reason : ABD PAIN Blood Pressure : / mmHG Vent. Rate : 085 BPM Atrial Rate : 085 BPM P-R Int : 136 ms QRS Dur : 094 ms QT Int : 376 ms P-R-T Axes : 069 004 051 degrees QTc Int : 447 ms Normal sinus rhythm Normal ECG Confirmed by TAMICA CASTELLANOS, LATOYA ([id number]), restaurant expeditor ADRIAN FINLEY ([id number]) on 09/21/2019 2:28:28 PM Referred By: SILVINA Confirmed By:LATOYA DAVEY MD
--- NOTE | 2019-09-18 06:40 | CT_ITS ---
STUDY: CT ABDOMEN AND PELVIS WITHOUT CONTRAST REASON FOR EXAM: Female, 74 years old. DIFFUSE ABD PAIN W/ DISTENTION,COLOSTOMY FROM HIRSHSPRUNGS, HERNIA REPAIR X 2, KOURTNEY/BSO, APPY RADIATION DOSAGE (If Supplied By Facility): CTDIvol = ( 9.85 ) mGy, DLP = ( 723.99 ) mGycm TECHNIQUE: Transaxial images were obtained from the dome of the diaphragm to the symphysis pubis without oral contrast, and without intravenous contrast. Sagittal and coronal images were reconstructed. Individualized dose optimization techniques were used for this CT. COMPARISON: Comparison is made with prior study February 23, 2019. FINDINGS: The visualized lung bases are unremarkable. Calcification of the mitral valve annulus. Normal liver. Normal gallbladder and extrahepatic biliary system. Normal spleen. Normal pancreas. Normal bilateral adrenal glands. Normal right kidney. Normal left kidney. Large hiatal hernia. Normal small intestine. Findings strongly suggestive of sigmoid volvulus with beaklike appearance in the distal sigmoid colon with the distention of the closed loop with the air and fecal material within it. An ostomy is seen in the left lower quadrant. Once again, there is evidence of a parastomal hernia containing loops of small bowel. There are surgical clips in the region of the appendix consistent with a prior appendectomy. There is diffuse atherosclerotic calcification of the abdominal aorta, without a demonstrated aneurysm. Normal inferior vena cava. Normal retroperitoneum. Normal urinary bladder. There is absence of the uterus consistent with a prior hysterectomy. Normal abdominal wall. There are diffuse degenerative changes of the visualized lumbar spine. CT/Abdomen/Pelvis without Cont IMPRESSION: Findings inconsistent with a sigmoid volvulus as described. Ostomy is seen in the left lower quadrant with a parastomal small bowel herniation. Status post appendectomy and hysterectomy. Large hiatal hernia. Electronically Signed: Loyd Reyez, at 10:01 EDT , Service support ,
--- NOTE | 2019-09-18 06:41 | ED.DCSUM_ITS ---
- ER Visit Summary Date of Service: 09/18/19 Chief Complaint: [Abdominal pain] History of Present Illness: The patient is a 74 F [presents to the emergency department complaint of abdominal pain for the last 5 days. Patient states that the pain is been continuous in the upper abdomen. She is had nausea but no vomiting. She denies any fever. She has had chills though as well as some sweats. She denies any chest pain. She has had decreased appetite and has not eaten much. Patient states she has not had any output from her colostomy since 3 days ago. Patient denies urinary symptoms. Patient does have history of a hernia repair last year I was associated with her colostomy. Patient apparently did not have good results with the first surgery and had to have a second surgery soon after her initial surgery. Patient's had prior appendectomy and hysterectomy.] Physical Examination: [HEENT-PERRLA, EOMI. Cranial nerves II through XII grossly intact. TMs clear. Mucous membranes moist. No adenopathy. Cardiovascular-regular rate and rhythm without murmur or ectopy Lungs-clear to auscultation, chest wall stable without crepitus or subcu emphysema Abdomen-normoactive bowel sounds, soft. Patient has diffuse tenderness with guarding. There is no rebound, rigidity, or peritoneal signs. Patient's colostomy bag is empty. Extremities-intact ?4, normal range of motion, normal pulses, atraumatic] Test Results: [] Emergency Department Course and Treatment: [Patient was ordered morphine and Zofran for pain. Patient had an IV line established will be given normal saline.] Treatment Plan: [Care of patient turned over the morning physician awaiting lab results and CT results and disposition] Disposition: [Pending] Impression: [Abdominal pain] This note was generated with [employer] dictation software. It may contain incorrect words, spelling, and punctuation that were not noted in review of the chart prior to signing ED Disposition - Plan for ED Patient: Referrals: Jordi Corona MD [Primary Care Provider] -
[2019-09-18 07:01] LABS: Absolute Lymphocyte Count 1.92 X10^3/uL (0.83-4.51); Absolute Neutrophil Count 6.5 X10^3/uL (2.0-7.7); Basophil# 0.07 X10^3/uL; Basophil% 0.7 % (0-1); Eosinophils% 2.1 % (0-5); Hematocrit 41.9 % (37-47); Hemoglobin 14.1 g/dL (12.0-15.0); Lymphocyte # 1.92 X10^3/ul (4.0); Lymphocyte % 20.3 % (19-41); Mean Corp Hgb Conc 33.7 g/dL (32-36); Mean Corpuscular Hgb 29.1 pg (27.0-32.0); Mean Corpuscular Volume 86.6 fL (81-99); Mean Platelet Vol. 10.5 fl (6.2-12.0); Monocyte# 0.77 X10^3/uL; Monocyte% 8.1 % (0-10); NRBC Flagged by Analyzer 0 % (0-5); Neutrophil # 6.45 X10^3/uL (2.7-7.7); Neutrophil % 68.4 % (47-70); Platelet Count 284 K/mm3 (150-450); RBC Distribution Width CV 13.5 % (11.6-14.6); RBC Distribution Width SD 42.5 fl (35.1-43.9); Red Blood Count 4.84 M/mm3 (4.2-5.4); White Blood Count 9.5 K/mm3 (4.4-11.0)
[2019-09-18 07:15] LABS: AST(SGOT) 25 U/L (15-37); Alanine Aminotransfer ALT/SGPT 22 U/L (13-56); Albumin, Serum 3.8 g/dL (3.2-5.0); Alkaline Phosphatase 124 U/L (45-117); Anion Gap 8 (5-15); BUN 14 mg/dL (7-18); BUN/Creat Ratio 20.6 RATIO (10-20); Calcium,Total 9.3 mg/dL (8.5-10.1); Chloride 103 mmol/L (98-107); Creatinine, Serum 0.68 mg/dL (0.55-1.02); EST Glomerular Filtration Rate 90 mL/min (>60); Est Glom Filt Rate - Afr Amer 109 mL/min (>60); Estimated Creatinine Clearance 35.99 ml/min; Glucose 127 mg/dL (74-106); Potassium 3.4 mmol/L (3.5-5.1); Protein, Total 7.8 g/dL (6.4-8.2); Sodium Level 137 mmol/L (136-145)
[2019-09-18 07:38] LABS: Lactic Acid 1.4 mmol/L (0.4-1.9)
[2019-09-18] MEDS: Morphine 4 MG/ML Syringe IM ×2 (07:54→14:20)
[2019-09-18] MEDS: Ondansetron 4 MG/2 ML Vial IM (07:54)
[2019-09-18 09:31] VITALS: BP 135/67; PULSE 84; RESP 17; O2SAT 95
[2019-09-18 09:32] LABS: Mucous, Urine 0 SEEN /hpf (<or=2+); Red Blood Cells-Urine 0 SEEN /hpf (0-5); Squamous Epithelial Cells - UA 0 SEEN /hpf (5-10)
[2019-09-18 09:34] LABS: Glucose, Dipstick Normal (Normal); Ketone-Dipstick Negative (Negative); Leukocyte Esterase-Dipstick 100 /ul (Negative); Nitrite-Dipstick Negative (Negative); Occult Blood-Urine 10 /ul (Negative); Protein-Dipstick Negative (Negative); Urine Bilirubin Dipstick Negative (Negative); Urine Urobilinogen Normal (Normal)
[2019-09-18 09:37] LABS: Color, Urine Yellow (Yellow); Urine Clarity Clear (Clear)
[2019-09-18 09:49] LABS: Bacteria 4+ /hpf (None Seen); White Blood Cells 0-5 SEEN /hpf (0-5)
[2019-09-18] MEDS: HYDROmorphone 1 MG/ML Syringe IM (10:45)
[2019-09-18 10:53] VITALS: BP 152/98; PULSE 78; RESP 17; TEMP 36.7; O2SAT 93
--- NOTE | 2019-09-18 11:42 | ED.RN ---
Addendum entered by Vanda Kramer 09/18/19 11:43: pt is aware that I left messages for her . Original Note: asked for me to call him. left message at his home and work number.
[2019-09-18 14:03] VITALS: BP 150/68; PULSE 75; RESP 17; O2SAT 95
[2019-09-18] MEDS: Ondansetron ODT 4 MG Tablet PO (14:18)
[2019-09-18 14:29] VITALS: BP 150/68; PULSE 75; RESP 17; TEMP 36.7; O2SAT 95
== END 2019-09-18 15:18 | disposition short-term general hospital (02) ==
LOC: ED 08:56
PROVIDERS: Emergency Provider Emergency Medicine; PCP Internal Medicine
DX: K56.2 Volvulus (principal); R10.84 Generalized abdominal pain; Z93.3 Colostomy status; I10 Essential (primary) hypertension; E03.9 Hypothyroidism, unspecified; F41.9 Anxiety disorder, unspecified; Z79.891 Long term (current) use of opiate analgesic; Z79.899 Other long term (current) drug therapy
CPT/HCPCS: 74176; 80053; 81001; 83605; 84484; 85025; 93005; 96372; 99283; J7030; A4216; J2405

== ENCOUNTER 2019-09-26 10:41 | Emergency (ER) | payer MEDICARE, BC, SELFPAY ==
[2019-09-26] VITALS (10 sets, daily range): BP systolic 151–171; BP diastolic 69–84; PULSE 71–79; RESP 16–18; TEMP 35.5–36.7; O2SAT 95–98; BMI 34.3
--- NOTE | 2019-09-26 10:55 | CT_ITS ---
STUDY: CT ABDOMEN AND PELVIS WITH CONTRAST REASON FOR EXAM: Female, 74 years old. Right lower quadrant pain FOLLOWING SURGERY September FOR BOWEL OBSTRUCTION. PRIOR COLOSTOMY FROM HIRSCHSPRUNG''S . Hysterectomy AND appendectomy. RADIATION DOSAGE (If Supplied By Facility): CTDIvol = ( 19.32 ) mGy, DLP = ( 1004.43 ) mGycm TECHNIQUE: Transaxial images were obtained from the dome of the diaphragm to the symphysis pubis without oral contrast. Oral and amp; IV Gastrografin and amp; 100mL Isovue-370 was administered. Sagittal and coronal images were reconstructed. Individualized dose optimization techniques were used for this CT. COMPARISON: September 18, 2019 FINDINGS: There are new bilateral pleural effusions associated with dependent consolidation within the lower lobes. The visualized portions of the heart are within normal limits. Normal liver. Normal gallbladder and extrahepatic biliary system. Normal spleen. Normal pancreas. Normal bilateral adrenal glands. Normal right kidney. Normal left kidney. There is a moderate size hiatal hernia. Normal small intestine. There is evidence of a prior partial colonic resection. There is non-visualization of the appendix. There is diffuse atherosclerotic calcification of the abdominal aorta, without a demonstrated aneurysm. Normal inferior vena cava. Normal retroperitoneum. There is a peripherally enhancing 8.6 x 5.9 x 3.4 cm (image 71 series 2 and image 50 series 601) fluid collection within the pelvis cranial to the urinary bladder with an appearance suggestive of an underlying abscess. There is an additional smaller peripherally enhancing fluid collection within the mesentery slightly right of midline measuring up to 2.2 x 1.4 x 2.2 cm (image 54 series 2 and image 42 series 601). There are additional smaller peripherally enhancing fluid collections pelvis. Normal urinary bladder. There are postsurgical changes along the anterior abdominal wall. There is an ostomy noted within the left lower quadrant. There are diffuse degenerative changes of the visualized lumbar spine. CT/Abdomen/Pelvis WITH Contrast IMPRESSION: Multiple peripherally enhancing fluid collections within the pelvis consistent with underlying intrapelvic abscesses, the largest measuring 8.6 x 5.9 x 3.4 cm. Atherosclerosis. Postsurgical changes within the abdomen and along the anterior abdominal wall. New bilateral pleural effusions associated with new dependent consolidation within the lower lobes. Moderate size hiatal hernia. Electronically Signed: Nabila Caba MD at 14:41 EDT Tel , Service support ,
[2019-09-26] MEDS: 0.9% Normal Saline 1,000 ML 1000 ML IV (11:08)
[2019-09-26] MEDS: Morphine 4 MG/ML Syringe IV ×2 (11:09→12:47)
[2019-09-26] MEDS: Ondansetron 4 MG/2 ML Vial IV (11:09)
--- NOTE | 2019-09-26 11:09 | ED.DCSUM_ITS ---
History of Present Illness Chief Complaint: Abd Pain Narrative: 74-year-old female status post partial colectomy with colostomy at main campus on September 17 bowel obstruction. She states that the surgery was uncomplicated. She has been home for a few days now but has had gradually increased right lower quadrant pain since arriving home. She is nauseated but not vomiting. She is still passing gas and reports a fairly normal amount of ostomy output. Pain has not improved with her 5 mg oxycodone pills. It is currently moderate in severity. The onset has been gradual. Prior similar symptoms: Yes Recent Illness/Hospitalization: Yes Capacity - Capacity Assessment Tool Can the patient make a choice & communicate that choice?: Yes Past Medical History - Allergies and Home Meds Allergies/Adverse Reactions: Allergies Sulfa (Sulfonamide Antibiotics) Allergy (Verified 09/18/19 06:34) Hives Primary Care Physician: Jordi Corona MD [Primary Care Provider] - Prior records reviewed: Yes Surgical History: appendectomy - 1967, hysterectomy - Total- 1984, - - colostomy 1967, 1972, 1982, 1985 Smoking Status: Never smoker - Family History Maternal Family History: Family History (Last Reviewed 08/28/18 @ 13:09 by Mariluz Galicia) Mother Hypertension Father Myocardial infarction Grandmother Liver cancer Sister Breast cancer Family History: Reports: Pulmonary Disease Paternal Family History: Family History (Last Reviewed 08/28/18 @ 13:09 by Mariluz Galicia) Mother Hypertension Father Myocardial infarction Grandmother Liver cancer Sister Breast cancer Family History: Reports: Heart Disease Review of Systems General: Denies: Chills, Fever, Sweats Eyes: Denies: Visual changes - bilaterally, Diplopia ENT: Denies: Rhinorrhea, Sore throat Cardiovascular: Denies: Chest pain, Palpitations Respiratory: Denies: Dyspnea, Cough, Dyspnea on exertion Gastrointestinal: Reports: Abdominal pain, Nausea. Denies: Vomiting, Diarrhea, Melena, Hematochezia Genitourinary: Denies: Dysuria, Hematuria, Frequency Musculoskeletal: Denies: Back pain, Extremity Pain Skin: Denies: Rash, Wounds Neurological: Denies: Headache, Weakness, Numbness Physical Exam Vital Signs/Narrative: Vital Signs Temp Pulse Resp BP Pulse Ox 09/26/19 10:53 97.8 F 79 18 151/72 H 98 09/26/19 10:42 97.8 F 79 18 151/72 H 98 General: Well nourished, Well developed, No Acute Distress Head: Normocephalic, Atraumatic Eyes: Perrl, EOMI ENT: Moist mucous membranes, No rhinorrhea Neck: Supple, Nontender Cardiovascular: Regular rate, Regular rhythm, No murmurs Respiratory: No distress, CTA bilaterally, Chest nontender Abdomen: Nontender, Nondistended, Normal bowel sounds, Tender, - - Surgical incision appears intact. No bleeding. No drainage. No surrounding erythema or warmth. She does have surrounding ecchymosis and tenderness but most of her tenderness is in the right lower quadrant. No rebound or guarding. Back: Nontender, Normal Inspection Extremities: Nontender, No edema Skin: Normal color, No rash Neurological: Alert, Oriented x3, Cranial nerves II-XII grossly intact, Normal Strength, Normal Sensation Psychological: Normal affect, Normal Mood Diagnostic/Tx/Re-eval - Medical Decision Making 74-year-old female with postoperative abdominal pain. Surgery on five 06/08. Labs fairly unremarkable but she did have ongoing pain and had to be evaluated and remedicated several times. Her CT scan shows multiple intra-abdominal abscesses, the largest of which is essentially 6 x8 x 4 cm. I discussed the case with Dr. Maria Elena Lopez who recommended transfer to a tertiary care for interventional radiology. Since her surgery was performed at [facility], she will be transferred there. I have placed a call to the transfer line. - Critical Care Time Critical care time (excluding procedures): 30-74 minutes, Discussing w/Patient &/or Family/Oil And Gas Recruiter, Discussing w/Consultants, Arranging Admission or Transfer, Performing Direct Patient Care at Bedside ED Disposition - Plan for ED Patient: Disposition: Acute Care Hospital - Other Diagnosis: Postoperative lower abdominal pain, Intra-abdominal abscess post-procedure Referrals: Jordi Corona MD [Primary Care Provider] -
[2019-09-26 11:22] LABS: Absolute Lymphocyte Count 1.77 X10^3/uL (0.83-4.51); Absolute Neutrophil Count 7.3 X10^3/uL (2.0-7.7); Basophil# 0.07 X10^3/uL; Basophil% 0.6 % (0-1); Eosinophil# 0.82 X10^3/uL; Eosinophils% 7.4 % (0-5); Hematocrit 34.6 % (37-47); Lymphocyte # 1.77 X10^3/ul (4.0); Lymphocyte % 16.1 % (19-41); Mean Corp Hgb Conc 31.8 g/dL (32-36); Mean Corpuscular Hgb 28.2 pg (27.0-32.0); Mean Corpuscular Volume 88.7 fL (81-99); Mean Platelet Vol. 9.3 fl (6.2-12.0); Monocyte# 0.86 X10^3/uL; Monocyte% 7.8 % (0-10); NRBC Flagged by Analyzer 0.3 % (0-5); Neutrophil # 7.28 X10^3/uL (2.7-7.7); Neutrophil % 66.2 % (47-70); Platelet Count 636 K/mm3 (150-450); RBC Distribution Width CV 14.4 % (11.6-14.6); RBC Distribution Width SD 45.2 fl (35.1-43.9)
[2019-09-26 11:44] LABS: Lactic Acid 1.2 mmol/L (0.4-1.9)
[2019-09-26 12:14] LABS: AST(SGOT) 51 U/L (15-37); Alanine Aminotransfer ALT/SGPT 32 U/L (13-56); Albumin, Serum 2.1 g/dL (3.2-5.0); Alkaline Phosphatase 108 U/L (45-117); Anion Gap 7 (5-15); BUN 6 mg/dL (7-18); BUN/Creat Ratio 14.1 RATIO (10-20); Bilirubin, Direct < 0.05 mg/dL (0.00-0.30); Chloride 116 mmol/L (98-107); Creatinine, Serum 0.43 mg/dL (0.55-1.02); EST Glomerular Filtration Rate 154 mL/min (>60); Est Glom Filt Rate - Afr Amer 187 mL/min (>60); Estimated Creatinine Clearance 60.99 ml/min; Globulin 3.2 g/dL (2.2-4.2); Glucose 80 mg/dL (74-106); Lipase 41 U/L (73-393); Potassium 3.2 mmol/L (3.5-5.1); Protein, Total 5.3 g/dL (6.4-8.2); Sodium Level 145 mmol/L (136-145)
[2019-09-26 12:24] LABS: Mucous, Urine 0 SEEN /hpf (<or=2+)
[2019-09-26 12:33] LABS: Color, Urine Yellow (Yellow); Glucose, Dipstick Normal (Normal); Ketone-Dipstick Negative (Negative); Leukocyte Esterase-Dipstick 500 /ul (Negative); Nitrite-Dipstick Positive (Negative); Occult Blood-Urine 10 /ul (Negative); Protein-Dipstick Negative (Negative); Urine Bilirubin Dipstick Negative (Negative); Urine Clarity Sl. Cloudy (Clear); Urine Urobilinogen Normal (Normal)
[2019-09-26 12:39] LABS: Bacteria 2+ /hpf (None Seen); Red Blood Cells-Urine 0-5 SEEN /hpf (0-5); Squamous Epithelial Cells - UA 0-5 SEEN /hpf (5-10); White Blood Cells 25-50 SEEN /hpf (0-5)
[2019-09-26] MEDS: Ceftriaxone 1 GM/50 ML BAG IV (13:11)
[2019-09-26] MEDS: fentaNYL 100 MCG/2 ML Ampul 50 MCG IV (15:25)
--- NOTE | 2019-09-26 17:28 | ED.RN ---
REPORT TO [facility]. PT SKIN P/W/D, RESP EVEN AND UNLABORED, PT A&O X 3, NO DISTRESS NOTED. PT OUT OF ED WITH [facility] FOR TRANSPORT TO [facility].
== END 2019-09-26 17:28 | disposition short-term general hospital (02) ==
PROVIDERS: Emergency Provider Emergency Medicine; PCP Internal Medicine
DX: T81.43XA Infection following a procedure, organ and space surgical site, initial encounter (principal); K65.1 Peritoneal abscess; Z90.49 Acquired absence of other specified parts of digestive tract; Z93.3 Colostomy status
CPT/HCPCS: 74177; 80048; 80076; 81001; 83605; 83690; 85025; 87086; 87088; 87186; 96361; 96365; 96375; 96376; 99284; J7030; J7050; Q9967; A4216; J2405

== ENCOUNTER → 2019-12-17 | Outpatient (CLI) | payer MEDICARE, BC, SELFPAY ==
[2019-09-26 10:42] VITALS: BMI 34.3
--- NOTE | 2019-12-17 16:21 | BI_ITS ---
MAMMOGRAPHY - BILATERAL SCREENING REASON FOR EXAM: Female, 74 years old. Routine annual screening examination. PERTINENT HISTORY: Sister with breast cancer. Grandmother with breast cancer. Remote left breast biopsy. TECHNIQUE: Digital bilateral breast fritz (3D mammographic acquisition) in the CC and MLO projections. 2-D mediolateral oblique (MLO) and craniocaudad (CC) views of both breasts were obtained. CAD: Full Field Digital Mammography with Computer Added Detection was performed. COMPARISON: Comparison is made with prior examination of 08/14/2018. FINDINGS: Breast Composition: The breasts are extremely dense, which lowers the sensitivity of mammography. There are no dominant masses or suspicious calcifications. A tissue clip marker is once again seen in the slightly inferior medial aspect of the left breast. Stable benign-appearing bilateral axillary lymph nodes. Stable benign appearing bilateral macrocalcifications. No other significant abnormalities are identified. There has been no significant change since the prior study. BI/SCREEN MAMM (CAD) W/FRITZ BILAT IMPRESSION: Stable bilateral screening mammogram. Yearly follow-up mammogram recommended. (A) ASSESSMENT CATEGORY: BIRADS Category 2: Benign. A letter regarding these results will be sent to the patient by the facility within 30 days. Approximately 10% of breast cancers are not detected by mammography. A normal mammogram should not delay biopsy of a clinically suspicious abnormality. [id number] Electronically Signed: Loyd Reyez, at 8:31 EDT , Service support ,
--- NOTE | 2019-12-17 16:39 | CT_ITS ---
STUDY: CT ABDOMEN AND PELVIS WITH CONTRAST REASON FOR EXAM: Female, 74 years old. Right-sided abdominal pain. History of hernia repair. RADIATION DOSAGE (If Supplied By Facility): CTDIvol = ( 16.50 ) mGy, DLP = ( 849.75 ) mGycm TECHNIQUE: Transaxial images were obtained from the dome of the diaphragm to the symphysis pubis with oral contrast. Oral and amp; IV Readi-CAT and amp; 100mL Isovue-300 was administered. Sagittal and coronal images were reconstructed. Individualized dose optimization techniques were used for this CT. COMPARISON: 09/26/2019. FINDINGS: The visualized lung bases are unremarkable. The visualized portions of the heart are within normal limits. There are marked calcifications along the mitral annulus. Normal liver. Normal gallbladder and extrahepatic biliary system. Normal spleen. Normal pancreas. Normal bilateral adrenal glands. Normal right kidney. There is a small cyst in the and over pole cortex of the left kidney. The left kidney is otherwise unremarkable. Grossly normal visualized ureters. There is a large retrocardiac hiatal hernia. The intra-abdominal stomach is distended with contrast and debris. No obstruction. Normal small intestine. Large amount of feces from the cecum to the left lower quadrant colostomy. There is herniation of nonobstructed small bowel loops through the ostomy defect. There are surgical changes in the cecum. The appendix is not visualized. There is diffuse atherosclerotic calcification of the abdominal aorta, without a demonstrated aneurysm. Normal inferior vena cava. Normal retroperitoneum. Normal urinary bladder. Normal vaginal cuff. Normal rectal stump. No pelvic lymphadenopathy. No free air or free fluid is seen within the peritoneal cavity. There is a midline surgical scar. There are nonspecific subcentimeter bilateral inguinal lymph nodes There are diffuse degenerative changes of the visualized lumbar spine. CT/Abdomen/Pelvis WITH Contrast IMPRESSION: 1. Resolution of the bilateral pleural effusions and atelectasis seen on the prior study. 2. Persistent large hiatal hernia. 3. Evidence of left colectomy with continued herniation of small bowel loops through the colostomy defect. There is no obstruction. 4. Resolution of the peritoneal fluid collections seen on the prior study. 5. No other major interval change. Electronically Signed: Mauro Ko DO at 19:38 EDT Tel [phone], Service support ,
[2019-12-17 16:51] LABS: CREATININE FINGERSTICK 0.6 mg/dL (0.55-1.02); EGFR FINGERSTICK > 60.0000 mL/min (>60)
== END | disposition home or self-care (01) ==
LOC: CT 16:20
PROVIDERS: PCP Internal Medicine; Referring Provider Internal Medicine; Visit Provider Internal Medicine
DX: R10.31 Right lower quadrant pain (principal); Z12.31 Encounter for screening mammogram for malignant neoplasm of breast
CPT/HCPCS: 74177; 77063; 77067; Q9967

== ENCOUNTER → 2021-02-17 13:53 | Outpatient (CLI) | payer MEDICARE, BC, SELFPAY ==
--- NOTE | 2021-02-17 13:54 | BI_ITS ---
MAMMOGRAPHY - BILATERAL SCREENING REASON FOR EXAM: Female, 75 years old. Routine annual screening examination. PERTINENT HISTORY: Sister with breast cancer. Grandmother with breast cancer. TECHNIQUE: Digital bilateral breast fritz (3D mammographic acquisition) in the CC and MLO projections. 2-D mediolateral oblique (MLO) and craniocaudad (CC) views of both breasts were obtained. CAD: Full Field Digital Mammography with Computer Added Detection was performed. COMPARISON: Comparison is made with prior study dated 12/17/2019 and 08/14/2018. FINDINGS: Breast Composition: The breasts are extremely dense, which lowers the sensitivity of mammography. There are no dominant masses or suspicious calcifications. Once again, a tissue clip marker is seen in the slightly inferior medial aspect of the left breast. Stable small benign-appearing bilateral axillary lymph. No other significant abnormalities are identified. There has been no significant change since the prior study. BI/SCRN MAMM (CAD)W/FRITZ BILAT IMPRESSION: Stable bilateral screening mammogram. Yearly follow-up mammogram recommended. (A) ASSESSMENT CATEGORY: BIRADS Category 2: Benign. A letter regarding these results will be sent to the patient by the facility within 30 days. Approximately 10% of breast cancers are not detected by mammography. A normal mammogram should not delay biopsy of a clinically suspicious abnormality. [id number] Electronically Signed: Loyd Reyez MD at 14:37 EDT , Service support ,
== END ==
PROVIDERS: PCP Internal Medicine; Referring Provider Obstetrics & Gynecology; Visit Provider Obstetrics & Gynecology
DX: Z12.31 Encounter for screening mammogram for malignant neoplasm of breast (principal); Z80.3 Family history of malignant neoplasm of breast
CPT/HCPCS: 77063; 77067

== ENCOUNTER 2021-05-08 19:06 | Inpatient (IN) | payer MEDICARE, BC, SELFPAY ==
[2021-05-08] VITALS (7 sets, daily range): BP systolic 145–163; BP diastolic 75–96; PULSE 90–100; RESP 16–20; TEMP 35.3–36.7; O2SAT 93–100; BMI 33.7
--- NOTE | 2021-05-08 20:10 | CT_ITS ---
STUDY: CT ABDOMEN AND PELVIS WITH CONTRAST REASON FOR EXAM: Female, 75 years old. Abd pain -- IV PO Contrast RADIATION DOSAGE (If Supplied By Facility): CTDIvol = ( 19.35 ) mGy, DLP = ( 913.63 ) mGycm TECHNIQUE: Transaxial images were obtained from the dome of the diaphragm to the symphysis pubis without oral contrast. Oral and amp; IV Gastrografin and amp; 100mL Isovue-370 was administered. Sagittal and coronal images were reconstructed. Individualized dose optimization techniques were used for this CT. COMPARISON: 12/17/2019 FINDINGS: There are atherosclerotic calcifications of visualized coronary arteries. Normal liver. Distended gallbladder and mildly dilated intra and extrahepatic biliary system. Small pericholecystic fluid. Normal spleen. There is diffuse enlargement of the pancreas with santos-pancreatic edema suggesting acute pancreatitis. No significant pancreatic duct dilation. Normal bilateral adrenal glands. Normal right kidney. Normal left kidney. Moderate to large hiatal hernia with associated passive atelectasis redemonstrated. There is a small intestine again within the left lower quadrant abdominal wall defect or and colostomy. No small or large bowel enlargement. Right lower quadrant anastomosis. No appendix. ANGELITA pouch. Normal abdominal aorta. Normal inferior vena cava. Normal retroperitoneum. Normal urinary bladder. There is absence of the uterus consistent with a prior hysterectomy. There are diffuse degenerative changes of the visualized lumbar spine. CT/Abdomen/Pelvis WITH Contrast IMPRESSION: Findings suggest acute pancreatitis. Biliary distention and small pericholecystic fluid may be reactive. Electronically Signed: Jose J Valenzuela MD at 22:50 EST Tel , Service support ,
--- NOTE | 2021-05-08 20:12 | EDS_ITS ---
HPI History of Present Illness Chief Complaint: Abd Pain Informant: patient and spouse/S.O. Onset/Context/Timing Onset: Hours (6 hours) Context: Gradual Onset Timing: Waxes and wanes Current Severity: Moderate Maximum Severity: Severe Narrative Narrative: Patient presents secondary to abdominal pain with nausea and vom iting. She had multiple abdominal surgeries including small bowel obstruction and small bowel strangulation. She currently has a colostomy. Patient reports abdominal pain that started around 2 PM this afternoon with nausea and vomiting. She is putting stool out into her colostomy bag. No fever or chills. [facility] Medical History (Updated 05/08/21 @ 22:[address] Christina Blake MD) Anxiety Congenital anomaly of intestine Essential hypertension Generalized arthritis Hirschsprung's disease Hyperlipidemia Hypertonicity of bladder Hypothyroidism Impaired fasting glucose Menopausal vasomotor syndrome Home Medications ascorbic acid (vitamin C) 500 mg PO DAILY@0800 08/24/16 [History Last Taken Unknown] cholecalciferol (vitamin D3) 1,000 unit PO DAILY 08/24/16 [History Last Taken Unknown] diltiazem HCl 420 mg PO DAILY 08/24/16 [History Last Taken 08/24/16] esomeprazole magnesium 10 mg PO QHS 08/24/16 [History Last Taken Unknown] hydrochlorothiazide 12.5 mg PO DAILY 08/24/16 [History Last Taken Unknown] levothyroxine 50 mcg PO DAILY 08/24/16 [History Last Taken Unknown] losartan 50 mg PO BID 08/24/16 [History Last Taken Unknown] multivitamin 1 ea PO DAILY 08/24/16 [History Last Taken Unknown] tolterodine 4 mg PO DAILY 08/24/16 [History Last Taken Unknown] tramadol 50 mg PO Q6H PRN PRN 08/24/16 [History Last Taken Unknown] pravastatin 10 mg tablet 20 mg PO QHS tab 06/30/18 [History Last Taken Unknown] venlafaxine 75 mg PO DAILY 08/20/18 [History Last Taken Unknown] Allergy/AdvReac Type Severity Reaction Status Date / Time Sulfa (Sulfonamide Allergy Hives Verified 05/08/21 19:19 Antibiotics) Family History Mother Hypertension Father Myocardial infarction Grandmother Liver cancer Sister Breast cancer Surgical History Colostomy status H/O: hysterectomy History of tonsillectomy Hx of total knee arthroplasty S/P colostomy Social History Smoking Status: Never smoker alcohol intake: never substance use type: does not use caffeine: No what type of physical activity do you participate in: none seatbelt use: always do you feel safe at home: Yes additional social history: - Yared LOGAN ED Constitutional Constitutional ED: Denies chills or fever(s) Eyes Eyes: Denies change in vision ENT ENT ED: Denies sore throat Cardiovascular Cardiovascular: Denies chest pain Respiratory/Chest Respiratory/Chest: Denies cough or dyspnea Gastrointestinal Gastrointestinal: Reports abdominal pain, nausea and vomiting; Denies diarrhea Genitourinary Genitourinary ED: Denies dysuria Musculoskeletal Musculoskeletal: Denies back pain Integumentary Denies rash Neurologic Neurologic: Denies headache(s) or weakness Allergic/Immunologic Allergic/Immunologic ED: Denies urticaria EXAM Physical Exam Const Vital Signs: 05/08/21 19:15 05/08/21 19:51 05/08/21 20:54 Temperature 95.6 F L Temperature Source Temporal Pulse Rate 90 91 96 Respiratory Rate 16 20 H Blood Pressure 163/79 H 145/96 H 158/77 H Blood Pressure Mean 107 112 104 Pulse Ox 95 93 Oxygen Delivery Method Room Air Room Air 05/08/21 21:15 Temperature Temperature Source Pulse Rate 96 Respiratory Rate 17 Blood Pressure 158/77 H Blood Pressure Mean 104 Pulse Ox 94 Oxygen Delivery Method Room Air Positive well nourished and well developed General Appearance ED: well developed HEENT Reports moist mucous membranes Eyes PERRL and EOMs intact bilaterally Neck supple Chest Wall inspection of chest normal and palpation of chest normal Resp normal respiratory effort and clear to auscultation bilaterally Cardio regular rate and regular rhythm GI GI Narrative: Mild upper abdominal tenderness to palpation. Hypoactive bowel sounds. Stool noted coming out around her colostomy bag. Palpation: soft Neuro oriented x3 Sensorium / Orientation: alert Psych Mood & Affect: anxious Skin no rashes or lesions noted MDM MDM MDM Narrative Medical decision making narrative: Patient was given morphine and Zofran for pain. Lab work and CT abdomen pelvis ordered. Lab Data Attestation: I reviewed the patient's lab results. Labs: Laboratory Results - last 24 hr 05/08/21 05/08/21 05/08/21 20:30 20:30 20:30 WBC 13.2 H RBC 4.88 Hgb 13.2 Hct 41.3 MCV 84.6 MCH 27.0 MCHC 32.0 RDW Std Deviation 44.3 H RDW Coeff of [place] 14.6 Plt Count 385 MPV 9.9 Immature Gran % (Auto) 0.300 Neut % (Auto) 93.1 H Lymph % (Auto) 2.[address] [place] % (Auto) 3.9 Eos % (Auto) 0.2 Baso % (Auto) 0.2 Absolute Neuts (auto) 12.3 H Absolute Lymphs (auto) 0.31 L Nucleated RBC % 0 Differential Comment Platelet Estimate ADEQUATE RBC Morphology NORM C+C Sodium 142 Potassium 3.3 L Chloride 105 Carbon Dioxide 27.0 Anion Gap 10 BUN 23 H Creatinine 0.96 Estim Creat Clear Calc 36.93 Est GFR (MDRD) Af Amer 73 Est GFR (MDRD) Non-Af 60 BUN/Creatinine Ratio 24.0 H Glucose 112 H Lactic Acid 1.5 Calcium 9.9 Total Bilirubin 1.30 H Direct Bilirubin 0.71 H AST 822 H ALT 385 H Alkaline Phosphatase 266 H Total Protein 7.9 Albumin 3.9 Globulin 4.0 Lipase 27439 H Radiography Diagnostic Testing: Clinical Impression(s) from Imaging Studies Abdomen/Pelvis CT 05/08/21 20:10 IMPRESSION: Findings suggest acute pancreatitis. Biliary distention and small pericholecystic fluid may be reactive. Electronically Signed: Jose J Valenzuela MD at 22:50 EST Tel , Service support , Treatment and Re-Evaluation Comments:: White count is elevated at 13.2. Minimal elevation in bilirubin levels, but significant elevation in ALT, AST, alk phos. Lipase is elevated over 13,000. CT scan with contrast reveals acute pancreatitis. Biliary distention and small pericholecystic fluid may be reactive. Patient has required additional doses of morphine for pain control. Test results discussed with patient and at bedside. I do recommend hospitalization for IV fluids and pain control. She may require a right upper quadrant ultrasound tomorrow to ensure no stone in the biliary duct. Discharge Plan Triage Chief Complaint: Abd Pain ED Provider: Christina Blake Dx/Rx/DC Orders Clinical Impression: Acute pancreatitis, Transaminitis Prescriptions: No Action multivitamin 1 EACH tablet 1 ea PO DAILY RF: 0 diltiazem HCl 420 MG capsule,extended release 24 hr 420 mg PO DAILY RF: 0 tolterodine 4 MG capsule,extended release 24hr 4 mg PO DAILY RF: 0 tramadol 50 MG tablet 50 mg PO Q6H PRN PRN (Reason: Pain) RF: 0 ascorbic acid (vitamin C) 500 MG tablet 500 mg PO DAILY@0800 RF: 0 levothyroxine 50 MCG tablet 50 mcg PO DAILY RF: 0 losartan 25 MG tablet 50 mg PO BID RF: 0 hydrochlorothiazide 12.5 MG capsule 12.5 mg PO DAILY RF: 0 esomeprazole magnesium 20 MG capsule 10 mg PO QHS RF: 0 cholecalciferol (vitamin D3) 1,000 UNIT capsule 1,000 unit PO DAILY RF: 0 pravastatin 10 mg tablet 20 mg PO QHS RF: 0 venlafaxine 75 MG capsule 75 mg PO DAILY RF: 0 Primary Care Provider: Jordi Corona Referrals: Jordi Corona MD [Primary Care Provider] - Disposition Disposition: Acute Care Hospital [facility]
--- NOTE | 2021-05-08 20:20 | ED.RN ---
COLOSTOMY WAS LOOSE. HELPED PT CLEAN AREA AND PT PUT NEW SYSTEM ON.
[2021-05-08] MEDS: Ondansetron 4 MG/2 ML Vial IV ×2 (20:32→23:11)
[2021-05-08] MEDS: Morphine 2 MG/ML Syringe IV (20:32)
[2021-05-08 20:42] LABS: Absolute Lymphocyte Count 0.31 X10^3/uL (0.83-4.51); Absolute Neutrophil Count 12.3 X10^3/uL (2.0-7.7); Basophil# 0.02 X10^3/uL; Basophil% 0.2 % (0-1); Eosinophil# 0.02 X10^3/uL; Eosinophils% 0.2 % (0-5); Hematocrit 41.3 % (37-47); Hemoglobin 13.2 g/dL (12.0-15.0); Lymphocyte # 0.31 X10^3/ul (0.83-4.51); Lymphocyte % 2.3 % (19-41); Mean Corpuscular Volume 84.6 fL (81-99); Mean Platelet Vol. 9.9 fl (6.2-12.0); Monocyte# 0.51 X10^3/uL; Monocyte% 3.9 % (0-10); NRBC Flagged by Analyzer 0 % (0-5); Neutrophil % 93.1 % (47-70); POSITIVE DIFFERENTIAL YES; Platelet Count 385 K/mm3 (150-450); RBC Distribution Width CV 14.6 % (11.6-14.6); RBC Distribution Width SD 44.3 fl (35.1-43.9); Red Blood Count 4.88 M/mm3 (4.2-5.4); White Blood Count 13.2 K/mm3 (4.4-11.0)
[2021-05-08 20:48] LABS: Differential Indicated SCAN CRITERIA MET
[2021-05-08 21:04] LABS: AST(SGOT) 822 U/L (15-37); Alanine Aminotransfer ALT/SGPT 385 U/L (13-56); Albumin, Serum 3.9 g/dL (3.2-5.0); Alkaline Phosphatase 266 U/L (45-117); Anion Gap 10 (5-15); BUN 23 mg/dL (7-18); Bilirubin, Direct 0.71 mg/dL (0.00-0.30); Calcium,Total 9.9 mg/dL (8.5-10.1); Chloride 105 mmol/L (98-107); Creatinine, Serum 0.96 mg/dL (0.55-1.02); EST Glomerular Filtration Rate 60 mL/min (>60); Est Glom Filt Rate - Afr Amer 73 mL/min (>60); Estimated Creatinine Clearance 36.93 ml/min; Glucose 112 mg/dL (74-106); Lipase 13817 U/L (73-393); Potassium 3.3 mmol/L (3.5-5.1); Protein, Total 7.9 g/dL (6.4-8.2); Sodium Level 142 mmol/L (136-145)
[2021-05-08 21:06] LABS: Lactic Acid 1.5 mmol/L (0.4-1.9)
[2021-05-08 21:12] LABS: Platelet Estimate ADEQUATE (ADEQ); Red Cell Morphology NORM C+C NORMAL (NORM C&C)
[2021-05-08] MEDS: Morphine 4 MG/ML Syringe IV ×2 (21:54→23:11)
[2021-05-08] MEDS: 0.9% Normal Saline 1,000 ML 999 ML IV (23:33)
--- NOTE | 2021-05-08 23:42 | PCM.HP.STD ---
HPI - General HPI Narrative KAYCEE ABREU, is a 75 F who presents to the emergency room with acute abdominal pain. Patient states she was working on [employer] this afternoon at 2:00 when her abdominal pain came on strong associated with nausea and vomiting. Patient denies a history of drinking however she has an elevated lipase of 13,[address] scan was negative for obstructive stone and other liver enzymes are only modestly elevated. Patient has required several doses of morphine to get her pain under control in the emergency room and it still remains high at the time of my evaluation. She will be admitted for pancreatitis, made n.p.o. along with IV fluids and pain medication and reevaluated in the morning. If pain continues she should get a ultrasound and perhaps GI consult. COUNT INCLUDES THE [facility] Medical History (Updated 05/08/21 @ 22:[address] Christina Blake MD) Anxiety Congenital anomaly of intestine Essential hypertension Generalized arthritis Hirschsprung's disease Hyperlipidemia Hypertonicity of bladder Hypothyroidism Impaired fasting glucose Menopausal vasomotor syndrome Home Medications ascorbic acid (vitamin C) 500 mg PO DAILY@0800 08/24/16 [History Last Taken Unknown] cholecalciferol (vitamin D3) 1,000 unit PO DAILY 08/24/16 [History Last Taken Unknown] diltiazem HCl 420 mg PO DAILY 08/24/16 [History Last Taken 08/24/16] esomeprazole magnesium 10 mg PO QHS 08/24/16 [History Last Taken Unknown] hydrochlorothiazide 12.5 mg PO DAILY 08/24/16 [History Last Taken Unknown] levothyroxine 50 mcg PO DAILY 08/24/16 [History Last Taken Unknown] losartan 50 mg PO BID 08/24/16 [History Last Taken Unknown] multivitamin 1 ea PO DAILY 08/24/16 [History Last Taken Unknown] tolterodine 4 mg PO DAILY 08/24/16 [History Last Taken Unknown] tramadol 50 mg PO Q6H PRN PRN 08/24/16 [History Last Taken Unknown] pravastatin 10 mg tablet 20 mg PO QHS tab 06/30/18 [History Last Taken Unknown] venlafaxine 75 mg PO DAILY 08/20/18 [History Last Taken Unknown] Allergy/AdvReac Type Severity Reaction Status Date / Time Sulfa (Sulfonamide Allergy Hives Verified 05/08/21 19:19 Antibiotics) Family History Mother Hypertension Father Myocardial infarction Grandmother Liver cancer Sister Breast cancer Surgical History Colostomy status H/O: hysterectomy History of tonsillectomy Hx of total knee arthroplasty S/P colostomy Social History Smoking Status: Never smoker alcohol intake: never substance use type: does not use caffeine: No what type of physical activity do you participate in: none seatbelt use: always do you feel safe at home: Yes additional social history: - Yared DESMOND Constitutional Constitutional: Denies chills or fever(s) Eyes Eyes: Denies change in vision ENT HEENT: Denies abnormal hearing Cardiovascular Cardiovascular: Denies chest pain Respiratory/Chest Respiratory/Chest: Denies cough Gastrointestinal Gastrointestinal: Reports abdominal pain, nausea and vomiting Genitourinary Genitourinary: Denies dysuria Musculoskeletal Musculoskeletal: Denies back pain Integumentary Integumentary: Denies dry skin Neurologic Neurologic: Denies abnormal gait Psychiatric Psychiatric: Denies anxiety Vital Signs Vital Signs Vital Signs: 05/08/21 19:15 05/08/21 19:51 05/08/21 20:54 Temperature 95.6 F L Temperature Source Temporal Pulse Rate 90 91 96 Respiratory Rate 16 20 H Blood Pressure 163/79 H 145/96 H 158/77 H Blood Pressure Mean 107 112 104 Pulse Ox 95 93 Oxygen Delivery Method Room Air Room Air 05/08/21 21:15 05/08/21 22:57 05/08/21 23:04 Temperature Temperature Source Pulse Rate 96 100 Respiratory Rate 17 17 Blood Pressure 158/77 H 156/75 H Blood Pressure Mean 104 102 Pulse Ox 94 93 100 Oxygen Delivery Method Room Air Room Air Room Air 05/08/21 23:05 Temperature 98.1 F Temperature Source Temporal Pulse Rate 100 Respiratory Rate 17 Blood Pressure 156/75 H Blood Pressure Mean 102 Pulse Ox 100 Oxygen Delivery Method Room Air Weight Weight: 172 lb 13.478 oz Body Mass Index (BMI) 33.7 Physical Exam Const oriented x3 General Appearance: cooperative HEENT normocephalic and head/scalp atraumatic Eyes PERRL and EOMs intact bilaterally Neck supple Lymph Lymphatic: no lymphadenopathy noted Resp normal respiratory effort, normal air movement and clear to auscultation bilaterally Cardio regular rate, regular rhythm, S1 normal heart sound and S2 normal heart sound GI Palpation: tender RUQ and guarding RUQ Extremity no clubbing, cyanosis or edema Skin General Skin Exam: turgor normal Neuro CN's II-XII intact bilaterally Results Lab / Micro Data Result Diagrams: 05/08/21 20:30 05/08/21 20:30 Labs: Laboratory Results - last 24 hr 05/08/21 20:30: WBC 13.2 H, RBC 4.88, Hgb 13.2, Hct 41.3, MCV 84.6, MCH 27.0, MCHC 32.0, RDW Std Deviation 44.3 H, RDW Coeff of [place] 14.6, Plt Count 385, MPV 9.9, Immature Gran % (Auto) 0.300, Neut % (Auto) 93.1 H, Lymph % (Auto) 2.3 L, [place] % (Auto) 3.9, Eos % (Auto) 0.2, Baso % (Auto) 0.2, Absolute Neuts (auto) 12.3 H, Absolute Lymphs (auto) 0.31 L, Nucleated RBC % 0, Differential Comment , Platelet Estimate ADEQUATE, RBC Morphology NORM C+C 05/08/21 20:30: Sodium 142, Potassium 3.3 L, Chloride 105, Carbon Dioxide 27.0, Anion Gap 10, BUN 23 H, Creatinine 0.96, Estim Creat Clear Calc 36.93, Est GFR (MDRD) Af Amer 73, Est GFR (MDRD) Non-Af 60, BUN/Creatinine Ratio 24.0 H, Glucose 112 H, Calcium 9.9, Total Bilirubin 1.30 H, Direct Bilirubin 0.71 H, AST 822 H, ALT 385 H, Alkaline Phosphatase 266 H, Total Protein 7.9, Albumin 3.9, Globulin 4.0, Lipase 91249 H 05/08/21 20:30: Lactic Acid 1.5 Radiology Impression Abdomen/Pelvis CT 05/08/21 20:10 IMPRESSION: Findings suggest acute pancreatitis. Biliary distention and small pericholecystic fluid may be reactive. Electronically Signed: Jose J Valenzuela MD at 22:50 EST Tel , Service support , Assessment & Plan Assessment/Plan (1) Acute pancreatitis: (2) Abdominal pain: (3) Congenital anomaly of intestine: (4) Hypothyroidism: (5) Colostomy status: (6) Anxiety: PLAN: 1. Acute pancreatitis?admit to medical surgical floor, make n.p.o., IV fluid normal saline at 125 cc/h, start Dilaudid 1 mg IV every 3 hours as needed pain, Zofran 4 mg IV every 6 hours as needed nausea, repeat CBC CMP and lipase in morning 2. Hypothyroidism we will hold thyroid medication for the next day or 2 while she remains n.p.o. due to her pancreatitis 3. Anxiety?we will hold venlafaxine for now as this has been a recent change in medication for preceding this episode of pancreatitis 4. DVT prophylaxis?low molecular weight heparin Charges/Coding Visit Charges Inpatient E&M: 55383 Init Hosp L3
[2021-05-09] VITALS (7 sets, daily range): BP systolic 134–167; BP diastolic 65–81; PULSE 88–98; RESP 18; TEMP 37–37.1; O2SAT 90–97; BMI 32.8
[2021-05-09] MEDS: 0.9% Normal Saline 1,000 ML 125 ML IV ×3 (01:13→17:56)
[2021-05-09] MEDS: HYDROmorphone 1 MG/ML Syringe IV ×5 (01:24→19:55)
[2021-05-09] MEDS: 0.9% Saline Lock 10 ML Syringe IV ×4 (05:39→12:52)
[2021-05-09] MEDS: Ondansetron 4 MG/2 ML Vial IV ×3 (05:46→19:59)
[2021-05-09 07:12] LABS: Absolute Lymphocyte Count 0.29 X10^3/uL (0.83-4.51); Absolute Neutrophil Count 16.2 X10^3/uL (2.0-7.7); Basophil# 0.02 X10^3/uL; Basophil% 0.1 % (0-1); Hemoglobin 11.4 g/dL (12.0-15.0); Lymphocyte # 0.29 X10^3/ul (0.83-4.51); Lymphocyte % 1.7 % (19-41); Mean Corp Hgb Conc 31.7 g/dL (32-36); Mean Corpuscular Hgb 26.8 pg (27.0-32.0); Mean Corpuscular Volume 84.5 fL (81-99); Mean Platelet Vol. 10.2 fl (6.2-12.0); Monocyte% 2.9 % (0-10); NRBC Flagged by Analyzer 0 % (0-5); Neutrophil # 16.21 X10^3/uL (2.7-7.7); Neutrophil % 94.8 % (47-70); POSITIVE DIFFERENTIAL YES; Platelet Count 369 K/mm3 (150-450); RBC Distribution Width CV 14.6 % (11.6-14.6); RBC Distribution Width SD 44.7 fl (35.1-43.9); Red Blood Count 4.26 M/mm3 (4.2-5.4); White Blood Count 17.1 K/mm3 (4.4-11.0)
[2021-05-09 07:17] LABS: Differential Indicated SCAN CRITERIA MET
[2021-05-09 07:42] LABS: ALB/GLOB Ratio 0.8 RATIO (0.9-2.4); AST(SGOT) 351 U/L (15-37); Alanine Aminotransfer ALT/SGPT 319 U/L (13-56); Albumin, Serum 3.1 g/dL (3.2-5.0); Alkaline Phosphatase 221 U/L (45-117); Anion Gap 9 (5-15); BUN 21 mg/dL (7-18); BUN/Creat Ratio 22.2 RATIO (10-20); Calcium,Total 8.8 mg/dL (8.5-10.1); Chloride 109 mmol/L (98-107); Creatinine, Serum 0.94 mg/dL (0.55-1.02); EST Glomerular Filtration Rate 61 mL/min (>60); Est Glom Filt Rate - Afr Amer 74 mL/min (>60); Estimated Creatinine Clearance 62.75 ml/min; Globulin 3.8 g/dL (2.2-4.2); Glucose 108 mg/dL (74-106); Lipase 10124 U/L (73-393); Potassium 3.4 mmol/L (3.5-5.1); Protein, Total 6.9 g/dL (6.4-8.2); Sodium Level 142 mmol/L (136-145)
--- NOTE | 2021-05-09 09:41 | CASEMGMT ---
Social Work Note Per access assoc questions, pt has completed HCPOA and LW, has not provided copies to [facility] and pt is able to bring in copies. Keely Gracia ENVIRONMENTAL FIELD SERVICES TECHNICIAN, CREDIT RELATIONSHIP MANAGER
[2021-05-09] MEDS: proCHLORPERazine 10 MG/2 ML Vial 5 MG IV (10:54)
[2021-05-09] MEDS: Potassium Chloride 10mEq/100mL 10 MEQ/100 ML IV.SOLN. 100 MEQ IV BOLUS (10:55)
[2021-05-09] MEDS: Enoxaparin 40 MG/0.4 ML Syringe SC (10:55)
--- NOTE | 2021-05-09 11:08 | PCM.PN.HOSP ---
Subjective Subjective Continue to have abdominal pain therefore will maintain n.p.o. status continue with IV fluids. T bili is stable therefore we will continue to monitor Objective Data Objective Data Vital Signs: Vital Signs Temp Pulse Resp BP Pulse Ox 98.8 F 96 18 134/65 H 93 05/09/21 08:51 05/09/21 08:51 05/09/21 08:51 05/09/21 08:51 05/09/21 09:00 Oxygen Flow Rate (L/min) 2 Oxygen Delivery Method Room Air Weight: 166 lb 14.239 oz Body Mass Index (BMI) 32.8 Intake & Output: Intake and Output for Last 24 Hours 05/08/21 05/09/21 05/10/21 03:59 03:59 03:59 Intake Total 1000 / 1000 964.58 / 964.58 Output Total 500 / 500 Balance 1000 / 1000 464.58 / 464.58 Lab / Micro Data Result Diagrams: 05/09/21 06:50 05/09/21 06:50 Labs: Laboratory Results - last 24 hr 05/08/21 20:30: WBC 13.2 H, RBC 4.88, Hgb 13.2, Hct 41.3, MCV 84.6, MCH 27.0, MCHC 32.0, RDW Std Deviation 44.3 H, RDW Coeff of Brandon 14.6, Plt Count 385, MPV 9.9, Immature Gran % (Auto) 0.300, Neut % (Auto) 93.1 H, Lymph % (Auto) 2.3 L, Saline % (Auto) 3.9, Eos % (Auto) 0.2, Baso % (Auto) 0.2, Absolute Neuts (auto) 12.3 H, Absolute Lymphs (auto) 0.31 L, Nucleated RBC % 0, Differential Comment , Platelet Estimate ADEQUATE, RBC Morphology NORM C+C 05/08/21 20:30: Sodium 142, Potassium 3.3 L, Chloride 105, Carbon Dioxide 27.0, Anion Gap 10, BUN 23 H, Creatinine 0.96, Estim Creat Clear Calc 36.93, Est GFR (MDRD) Af Amer 73, Est GFR (MDRD) Non-Af 60, BUN/Creatinine Ratio 24.0 H, Glucose 112 H, Calcium 9.9, Total Bilirubin 1.30 H, Direct Bilirubin 0.71 H, AST 822 H, ALT 385 H, Alkaline Phosphatase 266 H, Total Protein 7.9, Albumin 3.9, Globulin 4.0, Lipase 75708 H 05/08/21 20:30: Lactic Acid 1.5 05/09/21 06:50: Sodium 142, Potassium 3.4 L, Chloride 109 H, Carbon Dioxide 24.0, Anion Gap 9, BUN 21 H, Creatinine 0.94, Estim Creat Clear Calc 62.75, Est GFR (MDRD) Af Amer 74, Est GFR (MDRD) Non-Af 61, BUN/Creatinine Ratio 22.2 H, Glucose 108 H, Calcium 8.8, Total Bilirubin 1.30 H, AST 351 H, ALT 319 H, Alkaline Phosphatase 221 H, Total Protein 6.9, Albumin 3.1 L, Globulin 3.8, Albumin/Globulin Ratio 0.8 L, Lipase 57916 H 05/09/21 06:50: WBC 17.1 H, RBC 4.26, Hgb 11.4 L, Hct 36.0 L, MCV 84.5, MCH 26.8 L, MCHC 31.7 L, RDW Std Deviation 44.7 H, RDW Coeff of [place] 14.6, Plt Count 369, MPV 10.2, Immature Gran % (Auto) 0.500, Neut % (Auto) 94.8 H, Lymph % (Auto) 1.7 L, Saline % (Auto) 2.9, Eos % (Auto) 0.0, Baso % (Auto) 0.1, Absolute Neuts (auto) 16.2 H, Absolute Lymphs (auto) 0.29 L, Nucleated RBC % 0 Radiography Diagnostic Testing: Radiology Impression Abdomen/Pelvis CT 05/08/21 20:10 IMPRESSION: Findings suggest acute pancreatitis. Biliary distention and small pericholecystic fluid may be reactive. Electronically Signed: Jose J Valenzuela MD at 22:50 EST Tel , Service support , Physical Exam Const alert, oriented x3 and no apparent distress General Appearance: cooperative HEENT normocephalic and moist oral mucous membranes Eyes PERRL, EOMs intact bilaterally and conjunctivae normal Neck supple and no JVD Resp normal respiratory effort, no retractions, no use of accessory muscles and clear to auscultation bilaterally Auscultation: Negative for crackles, rales, rhonchi or wheezes Cardio regular rate, regular rhythm, S1 normal heart sound, S2 normal heart sound and no murmurs GI soft to palpation and non-distended; Negative for hepatosplenomegaly Palpation: tender epigastric, LLQ and RLQ Extremity no clubbing, cyanosis or edema Skin no rashes or lesions noted Neuro no focal motor deficits and no sensory deficits noted Psych affect normal Appearance: appropriate Assessment & Plan Assessment/Plan (1) Acute pancreatitis: PLAN: 1. Acute pancreatitis ?Unsure as to the etiology, gallbladder is distended and biliary duct is slightly dilated however total bilirubin is only 1.3 and is not climbing ?Lipase was down a little bit but she still continued to have abdominal pain therefore will not initiate a diet. Continue with pain medications and IV fluids ?Continue with n.p.o. ?Continue with antinausea medications 2. HTN/HLD ?Blood pressure is stable ?If necessary can let her have sips of water to continue with her Cardizem and her hydrochlorothiazide as well as losartan ?If necessary can resume pravastatin with sips 3. Hypothyroidism ?Stable ?Can continue with Synthroid when taking p.o. 4. Anxiety/depression ?Stable ?Can continue with Effexor when taking no DVT: Lovenox Charges/Coding Visit Charges Inpatient E&M: 08273 Subs Hosp L2
--- NOTE | 2021-05-09 11:16 | CASEMGMT ---
VIOLA FELIX Assessment: Face to Face with pt for initial transition planning/care coordination assessment. RN ELVIRA introduced self and role at [facility], pt voices understanding and consents to assessment. Patient resting in bed with oxygen noted lying on chest, in no apparent distress. Patient assisted to reapply NC. Pt is A/O x4 and answers all questions appropriately at this time. Care providers, pharmacy, and demographics verified/updated. Admitting Dx: Pancreatitis PCP: Cj Specialists: Marcanthony- [employer]IC[employer] OFFICER Preferred [facility]acy: [facility] [place] Insurance: Medicare & [place] Prescription Benefit: yes LW/HPOA: Patient states she has a living will and , Yared Jansen, is DPOA. Patient aware this is not on file with [facility] and documents may be brought to hospital to be scanned into record. LNOK: Yared Jansen, Living Arrangements: Pt lives in 2 story home with 4 stairs to enter without railing. Patient reports independent with ADLs prior to hospitalizations. Transportation: Pt drives self and denies concerns with transportation. DME/HHC/SNF: Patient has walker and cane, but does not currently use assistive device. Patient has shower chair and grab bars at home. Reports previous HHC following knee replacement surgery, unsure of company name. Denies previous SNF stay. Pt states no concerns with going home at time of dc. Pt states no further concerns/needs. CM to follow. Advised pt to ask CM if any further question/concerns/needs arise, voices understanding. Pt Goal: home Plan: home
[2021-05-09] MEDS: Potassium Chloride 10mEq/100mL 10 MEQ/100 ML IV.SOLN. 50 MEQ IV BOLUS (12:50)
[2021-05-10] MEDS: HYDROmorphone 1 MG/ML Syringe IV ×6 (00:03→23:40)
[2021-05-10 02:00] VITALS: BP 159/84; PULSE 95; RESP 16; TEMP 36.9; O2SAT 94
[2021-05-10] MEDS: 0.9% Normal Saline 1,000 ML 125 ML IV (02:04)
[2021-05-10 06:28] LABS: Absolute Lymphocyte Count 0.83 X10^3/uL (0.83-4.51); Absolute Neutrophil Count 13.3 X10^3/uL (2.0-7.7); Basophil# 0.05 X10^3/uL; Basophil% 0.3 % (0-1); Eosinophil# 0.15 X10^3/uL; Hematocrit 33.1 % (37-47); Hemoglobin 11.2 g/dL (12.0-15.0); Lymphocyte # 0.83 X10^3/ul (0.83-4.51); Lymphocyte % 5.6 % (19-41); Mean Corp Hgb Conc 33.8 g/dL (32-36); Mean Corpuscular Hgb 27.5 pg (27.0-32.0); Mean Corpuscular Volume 81.1 fL (81-99); Mean Platelet Vol. 10.3 fl (6.2-12.0); Monocyte# 0.48 X10^3/uL; Monocyte% 3.2 % (0-10); NRBC Flagged by Analyzer 0 % (0-5); Neutrophil % 89.2 % (47-70); Platelet Count 300 K/mm3 (150-450); RBC Distribution Width CV 14.9 % (11.6-14.6); RBC Distribution Width SD 43.8 fl (35.1-43.9); Red Blood Count 4.08 M/mm3 (4.2-5.4); White Blood Count 14.9 K/mm3 (4.4-11.0)
[2021-05-10 06:58] LABS: ALB/GLOB Ratio 0.7 RATIO (0.9-2.4); AST(SGOT) 187 U/L (15-37); Alanine Aminotransfer ALT/SGPT 238 U/L (13-56); Albumin, Serum 2.9 g/dL (3.2-5.0); Alkaline Phosphatase 243 U/L (45-117); Anion Gap 7 (5-15); BUN 19 mg/dL (7-18); BUN/Creat Ratio 27.7 RATIO (10-20); Calcium,Total 8.8 mg/dL (8.5-10.1); Chloride 112 mmol/L (98-107); Creatinine, Serum 0.69 mg/dL (0.55-1.02); EST Glomerular Filtration Rate 89 mL/min (>60); Est Glom Filt Rate - Afr Amer 108 mL/min (>60); Estimated Creatinine Clearance 35.45 ml/min; Globulin 4.1 g/dL (2.2-4.2); Glucose 70 mg/dL (74-106); Potassium 3.6 mmol/L (3.5-5.1); Sodium Level 143 mmol/L (136-145)
[2021-05-10] MEDS: Dext 5%-0.45% NS 1,000 ML 125 ML IV ×3 (07:59→21:51)
[2021-05-10 08:00] VITALS: BP 151/74; PULSE 90; RESP 16; TEMP 36.9; O2SAT 94
--- NOTE | 2021-05-10 09:33 | PN.HOSP_ITS ---
Subjective Subjective Still with abdominal pain though does appear to be improved. She does have more tenderness when I push my hands then when I push with my stethoscope. Objective Data Objective Data Vital Signs: Vital Signs Temp Pulse Resp BP Pulse Ox 98.4 F 90 16 151/74 H 94 05/10/21 08:00 05/10/21 08:00 05/10/21 08:00 05/10/21 08:00 05/10/21 08:00 Oxygen Flow Rate (L/min) 2 Oxygen Delivery Method Nasal Cannula Weight: 166 lb 14.239 oz Body Mass Index (BMI) 32.8 Intake & Output: Intake and Output for Last 24 Hours 05/09/21 05/10/21 05/11/21 03:59 03:59 03:59 Intake Total 1000 / 1000 3160.41 / 3160.41 491.67 / 491.67 Output Total 900 / 900 600 / 600 Balance 1000 / 1000 2260.41 / 2260.41 -108.33 / -108.33 Lab / Micro Data Result Diagrams: 05/10/21 06:00 05/10/21 06:00 Labs: Laboratory Results - last 24 hr 05/10/21 06:00: WBC 14.9 H, RBC 4.08 L, Hgb 11.2 L, Hct 33.1 L, MCV 81.1, MCH 27.5, MCHC 33.8 D, RDW Std Deviation 43.8, RDW Coeff of [place] 14.9 H, Plt Count 300, MPV 10.3, Immature Gran % (Auto) 0.700, Neut % (Auto) 89.2 H, Lymph % (Auto) 5.6 L, [place] % (Auto) 3.2, Eos % (Auto) 1.0, Baso % (Auto) 0.3, Absolute Neuts (auto) 13.3 H, Absolute Lymphs (auto) 0.83, Nucleated RBC % 0 05/10/21 06:00: Sodium 143, Potassium 3.6, Chloride 112 H, Carbon Dioxide 24.0, Anion Gap 7, BUN 19 H, Creatinine 0.69, Estim Creat Clear Calc 35.45, Est GFR (MDRD) Af Amer 108, Est GFR (MDRD) Non-Af 89, BUN/Creatinine Ratio 27.7 H, Glucose 70 L, Calcium 8.8, Total Bilirubin 0.70, AST 187 H, ALT 238 H, Alkaline Phosphatase 243 H, Total Protein 7.0, Albumin 2.9 L, Globulin 4.1, Albumin/Globulin Ratio 0.7 L Physical Exam Const alert, oriented x3 and no apparent distress General Appearance: cooperative HEENT normocephalic and moist oral mucous membranes Eyes PERRL, EOMs intact bilaterally and conjunctivae normal Neck supple and no JVD Resp normal respiratory effort, no retractions, no use of accessory muscles and clear to auscultation bilaterally Auscultation: Negative for crackles, rales, rhonchi or wheezes Cardio regular rate, regular rhythm, S1 normal heart sound, S2 normal heart sound and no murmurs GI soft to palpation and non-distended; Negative for hepatosplenomegaly Palpation: tender epigastric, LLQ and RLQ Extremity no clubbing, cyanosis or edema Skin no rashes or lesions noted Neuro no focal motor deficits and no sensory deficits noted Psych affect normal Appearance: appropriate Assessment & Plan Assessment/Plan (1) Acute pancreatitis: PLAN: 1. Acute pancreatitis ?Likely etiology is gallstone pancreatitis, on admission her total bilirubin was 1.3 with an AST of 822 and ALT of 385 and an alk phos of 266, today she has a total bilirubin of 0.7 with an AST of 187 and an ALT of 238 with an alk phos of 243 ?Lipase was down a little bit but she still continued to have abdominal pain therefore will not initiate a diet. Continue with pain medications and IV fluids, will transition to D5 half-normal saline as her blood sugar was low today ?We will consult general surgery for evaluation and possible cholecyst cho lecystectomy during this admission once her abdominal pain improves ?We will obtain gallbladder ultrasound ?Continue with n.p.o. ?Continue with antinausea medications 2. HTN/HLD ?Blood pressure is stable ?If necessary can let her have sips of water to continue with her Cardizem and her hydrochlorothiazide as well as losartan ?If necessary can resume pravastatin with sips 3. Hypothyroidism ?Stable ?Can continue with Synthroid when taking p.o. 4. Anxiety/depression ?Stable ?Can continue with Effexor when taking no DVT: Lovenox Charges/Coding Visit Charges Inpatient E&M: 69927 Subs Hosp L2
--- NOTE | 2021-05-10 09:35 | US_ITS ---
STUDY: ABDOMINAL ULTRASOUND - RIGHT UPPER QUADRANT REASON FOR VISIT: Female, 75 years old Gallstone pancreatitis TECHNIQUE: Ultrasound evaluation of the right upper quadrant was performed with real-time and static muniz-scale imaging. TECHNICAL QUALITY: Adequate. COMPARISON: Comparison is made with prior CT scan abdomen pelvis dated 05/08/2021. FINDINGS: Liver: The liver measures 16.2 cm. There is normal echogenicity of the liver. The bile ducts are within normal limits. There is hepatic color flow. The direction of portal flow is hepatopetal. There is no demonstrated mass lesion. Gallbladder: Normal distended gallbladder. The gallbladder wall is thickened and measures 4.4 mm. There is a positive sonographic Stack''s sign. There is pericholecystic fluid. There are no gallstones. Common Bile Duct (C.B.D.): The common bile duct measures 6.9 mm. Pancreas: Normal size of the head, body and tail of the pancreas. There is increased echogenicity of the pancreas. There is no demonstrated pancreatic mass or cyst. Right Kidney: Normal size of the right kidney. The right kidney measures 9.8 cm x 4.2 cm x 3.6 cm. There is thinning of the renal cortex. The right cortex measures 0.9 cm. There is no demonstrated renal mass or cyst. There is no right hydronephrosis. US/Gallbladder IMPRESSION: Thickening of the gallbladder wall with a small amount of pericholecystic fluid. Electronically Signed: Loyd Reyez MD at 12:41 EST , Service support ,
[2021-05-10] MEDS: Enoxaparin 40 MG/0.4 ML Syringe SC (10:36)
[2021-05-10 14:00] VITALS: BP 141/98; PULSE 84; RESP 16; TEMP 36.8; O2SAT 95
--- NOTE | 2021-05-10 15:06 | CHAPLAIN ---
Type of Pastoral Visit _x__ Initial Visit ___ Follow-up Visit ___ On-call Visit ___ General Patient Visit ___ Spiritual Assessment ___ Family Conference ___ Bereavement ___ Rapid Response ___ Code Blue ___ Other (describe below) Pastoral Care Referral From _x__ Patient ___ Family ___ Nurse ___ Physician ___ Assistant Women'S Basketball Coach ___ Outbound Sales Executive ___ Other (describe below) Sacrament/Intervention _x__ Active listening ___ Anointing ___ Restorationist ___ Bereavement ___ Communion _x__ Eva exploration ___ ___ Life review _x__ Prayer ___ Reconciliation ___ Sacrament of Sick _x__ Supportive presence ___ Wedding ___ Other (describe below) Pastoral Comments patient admitted to having great pain but currently under pain meds that make her drowsy and a little fuzzy; pt did speak openly about her eva in God and how that is very important and very helpful to her; pt would willingly take a little inspirational reading during the admission here; pt has family but does not plan to tell them where she is right now until I feel better and want to talk to them; prayer welcomed
--- NOTE | 2021-05-10 18:43 | EX.PCM.CON.S ---
Assessment & Plan Assessment/Plan (1) Acute pancreatitis: PLAN: This is a 75-year-old female who is hospital day three for admission for acute pancreatitis. She has been managed with bowel rest and IV fluid resuscitation. She is frustrated because her progress has been slow, but her laboratories do demonstrate an overall downtrend. Surgery was consulted for consideration of possible cholecystectomy as the patient was felt to have gallstone pancreatitis. This diagnosis remains somewhat unclear for me, as the patient had a subsequent right upper quadrant ultrasound that does not show any evidence of gallstones. I shared with her and her that it is possible she had small stones or sludge that have moved through the duct work and thereby caused some ductal dilation and LFT derangement. The ultrasound also shows evidence of pericholecystic fluid and some mild gallbladder wall thickening. Both of these latter findings could be attributed to the patient's concurrent pancreatitis. I shared with both patient and her that the rationale for performing a cholecystectomy during the same admission as an acute pancreatitis felt to be secondary to passage of a gallstone is to mitigate the risk for recurrent pancreatitis. However, patient demonstrates no echogenic foci within the gallbladder on ultrasound and I do not see any radiographic evidence of gallstones on CT imaging. Therefore, I am not sure such a procedure would provide a meaningful reduction in her risk. Furthermore, patient is not an average surgical risk given some 10-11 prior abdominal operations. In light of this, I recommend continued conservative management of pancreatitis. Recommend: ?Initiation of diet (low-fat) ?Trending lipase and CMP ?We will continue to follow patient's abdominal exam. If there are any acute changes, patient may require repeat imaging for rule out pancreatitis sequelae (necrosis, pseudocyst, other?) HPI Consult Data Date of Consult: 05/10/21 HPI Narrative HPI Narrative: KAYCEE JANSEN, is a 75 F who presented to [facility] on 05/08/2021 secondary to abdominal pain nausea and vomiting and was subsequently diagnosed with acute pancreatitis. Her laboratories on intake were notable for a lipase of greater than 13,000, mildly elevated bilirubin, and moderately elevated LFTs. The patient's dietary intake has been restricted for bowel rest, but unfortunately her pain has persisted. Repeat lipase yesterday showed this had down trended to 10,000 and there has been a concurrent downtrend in the other laboratories mentioned above. For her part, Mrs. Jansen is frustrated with the slow improvement she is demonstrated. However, her who is present at bedside, points out to her that her nausea has significantly improved. General surgery is consulted to evaluate patient for possible cholecystectomy given a suspicion for gallstone pancreatitis. Patient states this is her first experience with pancreatitis. She denies any recent alcohol use. She denies any new foods. Medically, the only medication that has changed for her recently has been a doubling of her dose of venlafaxine. She has been on this medication for years otherwise. Outside of pancreatitis, the patient has a very extensive history of abdominal diagnoses/surgeries. 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 She then underwent hysterectomy. She describes some for subsequent revisions of her colostomy, and incisional hernia repair (that required takeback and revision), and a operation for twisted small bowel. She states most of these operations were performed at . Currently has a parastomal hernia. Lastly, she is very intentional with communicating a problem with pain. Her confirms that his spends an extra long time in recovery following any surgery as providers try to gain control of her postoperative discomfort. [facility] Medical History (Updated 05/09/21 @ 11:[address] 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 Depression Essential hypertension Generalized arthritis GERD (gastroesophageal reflux disease) Hepatitis Hirschsprung's disease Hyperlipidemia Hypertonicity of bladder Hypothyroidism Impaired fasting glucose Menopausal vasomotor syndrome Osteoporosis Home Medications ascorbic acid (vitamin C) 500 mg PO DAILY@0800 08/24/16 [History Last Taken Unknown] cholecalciferol (vitamin D3) 500 unit PO DAILY 08/24/16 [History Last Taken Unknown] diltiazem HCl 420 mg PO DAILY 08/24/16 [History Last Taken 08/24/16] esomeprazole magnesium 10 mg PO QHS 08/24/16 [History Last Taken Unknown] hydrochlorothiazide 12.5 mg PO DAILY 08/24/16 [History Last Taken Unknown] levothyroxine 50 mcg PO DAILY 08/24/16 [History Last Taken Unknown] losartan 25 mg PO BID 08/24/16 [History Last Taken Unknown] multivitamin 1 ea PO DAILY 08/24/16 [History Last Taken Unknown] tolterodine 4 mg PO DAILY 08/24/16 [History Last Taken Unknown] tramadol 50 mg PO Q6H PRN PRN 08/24/16 [History Last Taken Unknown] pravastatin 10 mg tablet 20 mg PO QHS tab 06/30/18 [History Last Taken Unknown] venlafaxine 150 mg PO DAILY 08/20/18 [History Last Taken Unknown] Bifidobacterium infantis [Align] 4 mg PO DAILY 05/09/21 [History Last Taken Unknown] Allergy/AdvReac Type Severity Reaction Status Date / Time Sulfa (Sulfonamide Allergy Hives Verified 05/08/21 19:19 Antibiotics) Family History Mother Hypertension Father Myocardial infarction Grandmother Liver cancer Sister Breast cancer Surgical History (Updated 05/09/21 @ 01:12 by Sarika Garza) Colostomy status H/O: hysterectomy History of appendectomy History of tonsillectomy Hx of total knee arthroplasty S/P colostomy Social History Smoking Status: Never smoker alcohol intake: never substance use type: does not use caffeine: No what type of physical activity do you participate in: none seatbelt use: always do you feel safe at home: Yes additional social history: - Yared Physical Exam Const alert and oriented x3 Constitutional Narrative: Mild distress/frustration Nutritional Appearance: obese GI GI Narrative: Patient's abdomen is mildly distended. There is a left lower quadrant colostomy with appliance in place. There is midline laparotomy scar now well-healed. Patient has diffuse tenderness, but most prominent across the epigastrium. She has a negative Stack sign. Lab / Micro Data Result Diagrams: 05/10/21 06:00 05/10/21 06:00 Labs: Laboratory Results - last 24 hr 05/10/21 06:00: WBC 14.9 H, RBC 4.08 L, Hgb 11.2 L, Hct 33.1 L, MCV 81.1, MCH 27.5, MCHC 33.8 D, RDW Std Deviation 43.8, RDW Coeff of Brandon 14.9 H, Plt Count 300, MPV 10.3, Immature Gran % (Auto) 0.700, Neut % (Auto) 89.2 H, Lymph % (Auto) 5.6 L, [place] % (Auto) 3.2, Eos % (Auto) 1.0, Baso % (Auto) 0.3, Absolute Neuts (auto) 13.3 H, Absolute Lymphs (auto) 0.83, Nucleated RBC % 0 05/10/21 06:00: Sodium 143, Potassium 3.6, Chloride 112 H, Carbon Dioxide 24.0, Anion Gap 7, BUN 19 H, Creatinine 0.69, Estim Creat Clear Calc 35.45, Est GFR (MDRD) Af Amer 108, Est GFR (MDRD) Non-Af 89, BUN/Creatinine Ratio 27.7 H, Glucose 70 L, Calcium 8.8, Total Bilirubin 0.70, AST 187 H, ALT 238 H, Alkaline Phosphatase 243 H, Total Protein 7.0, Albumin 2.9 L, Globulin 4.1, Albumin/Globulin Ratio 0.7 L Radiology Impression Gallbladder Ultrasound 05/10/21 09:35 IMPRESSION: Thickening of the gallbladder wall with a small amount of pericholecystic fluid. Electronically Signed: Loyd Reyez MD at 12:41 EST , Service support , Charges/Coding Visit Charges Inpatient E&M: 13720 Init Hosp L2
[2021-05-10 20:07] VITALS: BP 159/84; PULSE 83; RESP 16; TEMP 36.8; O2SAT 96
[2021-05-10] MEDS: Ondansetron 4 MG/2 ML Vial IV (23:43)
--- NOTE | 2021-05-10 23:47 | NURSING ---
pt c/o pain 02/26; upset that this nurse was in another pt room and unabole to
--- NOTE | 2021-05-10 23:49 | NURSING ---
pt c/o abd pain 02/26; pt upset that this nurse was in another pt room and unable to get her pain medication on time. This nurse explained to pt it is PRN and not scheduled, pt then asked Can you just come and give it to me an hour early? This RN explained it does not work that way and that it is allowed to be given every four hours.
[2021-05-11] VITALS (7 sets, daily range): BP systolic 143–180; BP diastolic 66–88; PULSE 80–89; RESP 16–20; TEMP 36.5–37.2; O2SAT 92–98
[2021-05-11] MEDS: HYDROmorphone 1 MG/ML Syringe IV ×4 (03:49→23:59)
[2021-05-11] MEDS: Dext 5%-0.45% NS 1,000 ML 125 ML IV (03:49)
[2021-05-11 05:52] LABS: Absolute Lymphocyte Count 0.44 X10^3/uL (0.83-4.51); Absolute Neutrophil Count 6.9 X10^3/uL (2.0-7.7); Basophil# 0.02 X10^3/uL; Basophil% 0.3 % (0-1); Eosinophils% 2.5 % (0-5); Hematocrit 31.7 % (37-47); Hemoglobin 10.1 g/dL (12.0-15.0); Lymphocyte # 0.44 X10^3/ul (0.83-4.51); Lymphocyte % 5.5 % (19-41); Mean Corp Hgb Conc 31.9 g/dL (32-36); Mean Corpuscular Hgb 26.6 pg (27.0-32.0); Mean Corpuscular Volume 83.4 fL (81-99); Mean Platelet Vol. 10.6 fl (6.2-12.0); Monocyte# 0.36 X10^3/uL; Monocyte% 4.5 % (0-10); NRBC Flagged by Analyzer 0 % (0-5); Neutrophil # 6.88 X10^3/uL (2.7-7.7); Neutrophil % 86.6 % (47-70); POSITIVE DIFFERENTIAL YES; Platelet Count 269 K/mm3 (150-450); RBC Distribution Width CV 14.5 % (11.6-14.6); RBC Distribution Width SD 44.4 fl (35.1-43.9)
[2021-05-11 05:56] LABS: Differential Indicated SCAN CRITERIA MET
[2021-05-11 06:21] LABS: Differential Comment SCANNED
[2021-05-11 06:40] LABS: ALB/GLOB Ratio 0.7 RATIO (0.9-2.4); AST(SGOT) 154 U/L (15-37); Alanine Aminotransfer ALT/SGPT 175 U/L (13-56); Albumin, Serum 2.5 g/dL (3.2-5.0); Alkaline Phosphatase 325 U/L (45-117); Anion Gap 7 (5-15); BUN 11 mg/dL (7-18); BUN/Creat Ratio 21.7 RATIO (10-20); Calcium,Total 8.3 mg/dL (8.5-10.1); Chloride 104 mmol/L (98-107); Creatinine, Serum 0.51 mg/dL (0.55-1.02); EST Glomerular Filtration Rate 126 mL/min (>60); Est Glom Filt Rate - Afr Amer 152 mL/min (>60); Estimated Creatinine Clearance 35.45 ml/min; Globulin 3.7 g/dL (2.2-4.2); Glucose 138 mg/dL (74-106); Lipase 846 U/L (73-393); Potassium 2.8 mmol/L (3.5-5.1); Protein, Total 6.2 g/dL (6.4-8.2); Sodium Level 138 mmol/L (136-145)
[2021-05-11 07:49] LABS: Magnesium 1.9 mg/dL (1.6-2.6); Phosphorus 1.3 mg/dL (2.5-4.9)
--- NOTE | 2021-05-11 08:24 | PN.SURG_ITS ---
Subjective Subjective Patient seen and examined during AM rounds. She is sleeping when I arrived to the room. She awakens groggy and states that she is still having significant abdominal pain. Specifically, she points to the very lateral subcostal right upper quadrant abdominal pain that she experienced last evening. Denies any nausea this morning. Objective Data Objective Data Vital Signs: Vital Signs Temp Pulse Resp BP Pulse Ox 98.3 F 80 16 149/74 H 96 05/11/21 07:47 05/11/21 07:47 05/11/21 07:47 05/11/21 07:47 05/11/21 07:47 Oxygen Flow Rate (L/min) 2 Oxygen Delivery Method Room Air Weight: 166 lb 14.239 oz Body Mass Index (BMI) 32.8 Intake & Output: Intake and Output for Last 24 Hours 05/09/21 05/10/21 05/11/21 23:59 23:59 23:59 Intake Total 3160.41 / 3918.74 3696.92 / 3696.92 857.83 / 857.83 Output Total 900 / 900 2500 / 2500 450 / 450 Balance 2260.41 / 3018.74 1196.92 / 1196.92 407.83 / 407.83 Lab / Micro Data Result Diagrams: 05/11/21 05:10 05/11/21 05:10 Labs: Laboratory Results - last 24 hr 05/11/21 05:10: WBC 8.0, RBC 3.80 L, Hgb 10.1 L, Hct 31.7 L, MCV 83.4, MCH 26.6 L, MCHC 31.9 L D, RDW Std Deviation 44.4 H, RDW Coeff of [place] 14.5, Plt Count 269 , MPV 10.6, Immature Gran % (Auto) 0.600, Neut % (Auto) 86.6 H, Lymph % (Auto) 5.5 L, [place] % (Auto) 4.5, Eos % (Auto) 2.5, Baso % (Auto) 0.3, Absolute Neuts (auto) 6.9, Absolute Lymphs (auto) 0.44 L, Nucleated RBC % 0, Differential Comment SCANNED 05/11/21 05:10: Sodium 138, Potassium 2.8 L, Chloride 104, Carbon Dioxide 27.0, Anion Gap 7, BUN 11, Creatinine 0.51 L, Estim Creat Clear Calc 35.45, Est GFR (MDRD) Af Amer 152, Est GFR (MDRD) Non-Af 126, BUN/Creatinine Ratio 21.7 H, Glucose 138 H, Calcium 8.3 L, Total Bilirubin 0.80, AST 154 H, ALT 175 H, Alkaline Phosphatase 325 H, Total Protein 6.2 L, Albumin 2.5 L, Globulin 3.7, Albumin/Globulin Ratio 0.7 L, Lipase 846 H 05/11/21 05:10: Phosphorus 1.3 L, Magnesium 1.9 Radiography Diagnostic Testing: Radiology Impression Gallbladder Ultrasound 05/10/21 09:35 IMPRESSION: Thickening of the gallbladder wall with a small amount of pericholecystic fluid. Electronically Signed: Loyd Reyez MD at 12:41 EST , Service support , Physical Exam Const Constitutional Narrative: Patient appears anxious GI GI Narrative: Patient yells out with abdominal pain before I had makes contact. Abdomen is nondistended. She is largely soft with palpation. There is persistent epigastric tenderness but no right upper quadrant tenderness Assessment & Plan Assessment/Plan (1) Acute pancreatitis: PLAN: Patient hospital day 4 for admission for acute pancreatitis. Overall exam is improved from yesterday and laboratories are downtrending. Recommend initiating a low-fat diet today. We will continue to follow (2) Transaminitis: PLAN: Overall, demonstrating spontaneous downtrend. Possible that a solitary stone/sludge has already passed. I do not have an exam of acute cholecystitis. Patient is very high surgical risk given the prior surgical h istory. Patient also without gallstones on ultrasound imaging yesterday. Therefore, not currently planning for same?admission cholecystectomy. Would continue to trend laboratories with daily CMP. Charges/Coding Visit Charges Inpatient E&M: 90485 Subs Hosp L2
--- NOTE | 2021-05-11 09:20 | MRI_ITS ---
STUDY: MR MRCP WITHOUT CONTRAST REASON FOR EXAM: Female, 75 years old. bilary dilation and pancreatitis. r/o obstruction TECHNIQUE: Standard MRCP technique was utilized. 3-D reconstructions were performed. COMPARISON: CT 05/08/2021, ultrasound 05/10/2021 FINDINGS: Gall Bladder: Normal with no distention or demonstrated fixed intraluminal filling defect. Cystic duct: Normal with no demonstrated fixed filling defect. Intrahepatic ducts: Normal visualized intrahepatic ducts with no demonstrated fixed filling defect, dilation or stricture. Common hepatic duct: Normal with no demonstrated fixed filling defect, dilation or stricture. Common bile duct: Normal with no demonstrated fixed filling defect, dilation or stricture. Pancreatic duct: Normal with no demonstrated fixed filling defect, dilation or stricture. MRI/MRCP Abdomen without Contrast IMPRESSION: Normal MR Cholangiopancreatography (MRCP). Electronically Signed: Mook Landaverde MD at 12:22 EST Tel , Service support ,
[2021-05-11] MEDS: 0.9% Saline Lock 10 ML Syringe IV ×2 (10:04→20:55)
[2021-05-11] MEDS: Enoxaparin 40 MG/0.4 ML Syringe SC (10:08)
--- NOTE | 2021-05-11 10:50 | PN.HOSP_ITS ---
Subjective Subjective Continues to have mild abdominal pain. Though she was advanced to a full liquid diet today with low fat restriction. We will plan for an MRCP per surgery's evaluation. Objective Data Objective Data Vital Signs: Vital Signs Temp Pulse Resp BP Pulse Ox 98.3 F 80 18 149/74 H 96 05/11/21 07:47 05/11/21 07:47 05/11/21 09:00 05/11/21 07:47 05/11/21 07:47 Oxygen Flow Rate (L/min) 2 Oxygen Delivery Method Room Air Weight: 166 lb 14.239 oz Body Mass Index (BMI) 32.8 Intake & Output: Intake and Output for Last 24 Hours 05/10/21 05/11/21 05/12/21 03:59 03:59 03:59 Intake Total 3160.41 / 3160.41 3442.75 / 3442.75 112 / 112 Output Total 900 / 900 2500 / 2500 450 / 450 Balance 2260.41 / 2260.41 942.75 / 942.75 -338 / -338 Lab / Micro Data Result Diagrams: 05/11/21 05:10 05/11/21 05:10 Labs: Laboratory Results - last 24 hr 05/11/21 05:10: WBC 8.0, RBC 3.80 L, Hgb 10.1 L, Hct 31.7 L, MCV 83.4, MCH 26.6 L, MCHC 31.9 L D, RDW Std Deviation 44.4 H, RDW Coeff of [place] 14.5, Plt Count 269, MPV 10.6, Immature Gran % (Auto) 0.600, Neut % (Auto) 86.6 H, Lymph % (Auto) 5.5 L, [place] % (Auto) 4.5, Eos % (Auto) 2.5, Baso % (Auto) 0.3, Absolute Neuts (auto) 6.9, Absolute Lymphs (auto) 0.44 L, Nucleated RBC % 0, Differential Comment SCANNED 05/11/21 05:10: Sodium 138, Potassium 2.8 L, Chloride 104, Carbon Dioxide 27.0, Anion Gap 7, BUN 11, Creatinine 0.51 L, Estim Creat Clear Calc 35.45, Est GFR (MDRD) Af Amer 152, Est GFR (MDRD) Non-Af 126, BUN/Creatinine Ratio 21.7 H, Glucose 138 H, Calcium 8.3 L, Total Bilirubin 0.80, AST 154 H, ALT 175 H, Alkaline Phosphatase 325 H, Total Protein 6.2 L, Albumin 2.5 L, Globulin 3.7, Albumin/Globulin Ratio 0.7 L, Lipase 846 H 05/11/21 05:10: Phosphorus 1.3 L, Magnesium 1.9 Radiography Diagnostic Testing: Radiology Impression Gallbladder Ultrasound 05/10/21 09:35 IMPRESSION: Thickening of the gallbladder wall with a small amount of pericholecystic fluid. Electronically Signed: Loyd Reyez MD at 12:41 EST , Service support , Physical Exam Const alert, oriented x3 and no apparent distress General Appearance: cooperative HEENT normocephalic and moist oral mucous membranes Eyes PERRL, EOMs intact bilaterally and conjunctivae normal Neck supple and no JVD Resp normal respiratory effort, no retractions, no use of accessory muscles and clear to auscultation bilaterally Auscultation: Negative for crackles, rales, rhonchi or wheezes Cardio regular rate, regular rhythm, S1 normal heart sound, S2 normal heart sound and no murmurs GI soft to palpation and non-distended; Negative for hepatosplenomegaly GI Narrative: Colostomy in place, looks healthy Palpation: tender epigastric Extremity no clubbing, cyanosis or edema Skin no rashes or lesions noted Neuro no focal motor deficits and no sensory deficits noted Psych affect normal Appearance: appropriate Assessment & Plan Assessment/Plan (1) Acute pancreatitis: PLAN: 1. Acute pancreatitis ?Likely etiology is gallstone pancreatitis, on admission her total bilirubin was 1.3 with an AST of 822 and ALT of 385 and an alk phos of 266, 05/10/2021 she has a total bilirubin of 0.7 with an AST of 187 and an ALT of 238 with an alk phos of 243 ?Lipase was down a little bit but she still continued to have abdominal pain therefore will not initiate a diet. Continue with pain medications and IV fluids, will transition to D5 half-normal saline as her blood sugar was low today ?Gallbladder ultrasound demonstrates some mild wall thickening, appreciate general surgery's assistance ?Continue with full liquid diet, low-fat ?MRCP today ?Continue with antinausea medications 2. HTN/HLD ?Blood pressure is stable ?If necessary can let her have sips of water to continue with her Cardizem and her hydrochlorothiazide as well as losartan ?If necessary can resume pravastatin with sips 3. Hypothyroidism ?Stable ?Can continue with Synthroid when taking p.o. 4. Anxiety/depression ?Stable ?Can continue with Effexor when taking no DVT: Lovenox Charges/Coding Visit Charges Inpatient E&M: 43483 Subs Hosp L2
[2021-05-11] MEDS: 0.9% Normal Saline 1,000 ML 75 ML IV ×2 (11:59→23:49)
[2021-05-11] MEDS: traMADol 50 MG Tablet PO ×2 (13:38→20:51)
[2021-05-12] MEDS: Losartan Potassium 25 MG Tablet PO ×3 (01:10→22:26)
[2021-05-12] MEDS: hydroCHLOROthiazide 12.5mg 12.5 MG PO (01:10)
[2021-05-12] MEDS: dilTIAZem CD 120 MG Capsule PO (02:09)
[2021-05-12] MEDS: dilTIAZem CD 300 MG Capsule PO (02:10)
[2021-05-12] MEDS: traMADol 50 MG Tablet PO ×2 (03:03→20:35)
[2021-05-12 03:05] VITALS: BP 185/86; PULSE 80; RESP 18; TEMP 36.4; O2SAT 94
[2021-05-12 04:03] VITALS: BP 168/78; PULSE 79; RESP 20; TEMP 36.5; O2SAT 92
[2021-05-12] MEDS: HYDROmorphone 1 MG/ML Syringe IV ×3 (04:07→22:22)
[2021-05-12 06:27] LABS: Absolute Lymphocyte Count 0.73 X10^3/uL (0.83-4.51); Absolute Neutrophil Count 5.4 X10^3/uL (2.0-7.7); Basophil# 0.04 X10^3/uL; Basophil% 0.6 % (0-1); Eosinophil# 0.34 X10^3/uL; Eosinophils% 4.7 % (0-5); Hematocrit 34.4 % (37-47); Hemoglobin 11.6 g/dL (12.0-15.0); Lymphocyte # 0.73 X10^3/ul (0.83-4.51); Lymphocyte % 10.1 % (19-41); Mean Corp Hgb Conc 33.7 g/dL (32-36); Mean Corpuscular Hgb 27.6 pg (27.0-32.0); Mean Corpuscular Volume 81.7 fL (81-99); Mean Platelet Vol. 10.4 fl (6.2-12.0); Monocyte# 0.61 X10^3/uL; Monocyte% 8.5 % (0-10); NRBC Flagged by Analyzer 0 % (0-5); Neutrophil # 5.41 X10^3/uL (2.7-7.7); Neutrophil % 75.1 % (47-70); Platelet Count 294 K/mm3 (150-450); RBC Distribution Width CV 14.2 % (11.6-14.6); RBC Distribution Width SD 41.9 fl (35.1-43.9); Red Blood Count 4.21 M/mm3 (4.2-5.4); White Blood Count 7.2 K/mm3 (4.4-11.0)
[2021-05-12 06:57] LABS: Phosphorus 1.7 mg/dL (2.5-4.9)
[2021-05-12 07:14] LABS: ALB/GLOB Ratio 0.7 RATIO (0.9-2.4); AST(SGOT) 76 U/L (15-37); Alanine Aminotransfer ALT/SGPT 168 U/L (13-56); Albumin, Serum 2.8 g/dL (3.2-5.0); Alkaline Phosphatase 363 U/L (45-117); Anion Gap 10 (5-15); BUN 5 mg/dL (7-18); BUN/Creat Ratio 9.9 RATIO (10-20); Calcium,Total 8.5 mg/dL (8.5-10.1); Chloride 101 mmol/L (98-107); Creatinine, Serum 0.51 mg/dL (0.55-1.02); EST Glomerular Filtration Rate 126 mL/min (>60); Est Glom Filt Rate - Afr Amer 152 mL/min (>60); Estimated Creatinine Clearance 35.45 ml/min; Globulin 4.2 g/dL (2.2-4.2); Glucose 106 mg/dL (74-106); Potassium 2.8 mmol/L (3.5-5.1); Sodium Level 138 mmol/L (136-145)
--- NOTE | 2021-05-12 08:02 | PN.SURG_ITS ---
Subjective Subjective Patient notes left upper quadrant pain and nausea Objective Data Objective Data Vital Signs: Vital Signs Temp Pulse Resp BP Pulse Ox 97.7 F L 79 20 H 168/78 H 92 05/12/21 04:03 05/12/21 04:03 05/12/21 04:03 05/12/21 04:03 05/12/21 04:03 Oxygen Flow Rate (L/min) 2 Oxygen Delivery Method Room Air Weight: 166 lb 14.239 oz Body Mass Index (BMI) 32.8 Intake & Output: Intake and Output for Last 24 Hours 05/10/21 05/11/21 05/12/21 23:59 23:59 23:59 Intake Total 3696.92 / 3696.92 4655.5833 / 4655.5833 112 / 112 Output Total 2500 / 2500 2400 / 2400 Balance 1196.92 / 1196.92 2255.5833 / 2255.5833 112 / 112 Lab / Micro Data Result Diagrams: 05/12/21 05:35 05/12/21 05:35 Labs: Laboratory Results - last 24 hr 05/12/21 05:35: WBC 7.2, RBC 4.21, Hgb 11.6 L, Hct 34.4 L, MCV 81.7, MCH 27.6, MCHC 33.7 D, RDW Std Deviation 41.9, RDW Coeff of [place] 14.2, Plt Count 294, MPV 10.4, Immature Gran % (Auto) 1.000 H, Neut % (Auto) 75.1 H, Lymph % (Auto) 10.1 L, [place] % (Auto) 8.5, Eos % (Auto) 4.7, Baso % (Auto) 0.6, Absolute Neuts (auto) 5.4, Absolute Lymphs (auto) 0.73 L, Nucleated RBC % 0 05/12/21 05:35: Sodium 138, Potassium 2.8 L, Chloride 101, Carbon Dioxide 27.0, Anion Gap 10, BUN 5 L, Creatinine 0.51 L, Estim Creat Clear Calc 35.45, Est GFR (MDRD) Af Amer 152, Est GFR (MDRD) Non-Af 126, BUN/Creatinine Ratio 9.9 L, Gluco se 106, Calcium 8.5, Total Bilirubin 0.60, AST 76 H, ALT 168 H, Alkaline Phosphatase 363 H, Total Protein 7.0, Albumin 2.8 L, Globulin 4.2, Albumin/Globulin Ratio 0.7 L 05/12/21 05:35: Phosphorus 1.7 L Radiography Diagnostic Testing: Radiology Impression MRCP 05/11/21 09:20 IMPRESSION: Normal MR Cholangiopancreatography (MRCP). Electronically Signed: Mook Landaverde MD at 12:22 EST Tel , Service support , Physical Exam Const no apparent distress Cardio regular rate GI soft to palpation Palpation: tender LUQ Assessment & Plan Assessment/Plan (1) Acute pancreatitis: PLAN: The patient had MRCP yesterday which did not show any filling defects in the common bile duct and did not show any stones in the gallbladder. At this time I do not believe gallstone is the cause of her pancreatitis. Her lipase was decreasing significantly yesterday. Her liver enzymes are slowly decreasing. The patient may need to hold off a while before starting diet as sh tavon says that diet is making the pain worse. I would recommend resuming diet once pain is resolved. Avi Velásquez MD Pager: [facility] [address] [place] [address], [address] [place] [address] Office:
[2021-05-12] MEDS: Potassium Chloride 10mEq/100mL 10 MEQ/100 ML IV.SOLN. 100 MEQ IV BOLUS ×4 (08:54→18:36)
[2021-05-12] MEDS: Potassium Chloride Oral Tablet 20 MEQ 60 MEQ PO (08:58)
[2021-05-12 09:12] VITALS: BP 148/67; PULSE 72; RESP 20; TEMP 37.2; O2SAT 92
[2021-05-12] MEDS: Enoxaparin 40 MG/0.4 ML Syringe SC (09:15)
[2021-05-12] MEDS: Venlafaxine XR 150 MG Capsule PO (09:16)
[2021-05-12] MEDS: Tolterodine Tartrate 4 MG CAP.SA PO (09:16)
--- NOTE | 2021-05-12 11:11 | PN.HOSP_ITS ---
Subjective Subjective Patient seen and examined. She still complained of abdominal pain, mainly in the epigastric region. She denied any nausea vomiting review of systems otherwise negative. MRCP yesterday was normal and did not show any stones or filling defects in the common bile duct. Objective Data Objective Data Vital Signs: Vital Signs Temp Pulse Resp BP Pulse Ox 98.9 F 72 20 H 148/67 H 92 05/12/21 09:12 05/12/21 09:12 05/12/21 09:12 05/12/21 09:12 05/12/21 09:12 Oxygen Flow Rate (L/min) 2 Oxygen Delivery Method Room Air Weight: 166 lb 14.239 oz Body Mass Index (BMI) 32.8 Intake & Output: Intake and Output for Last 24 Hours 05/10/21 05/11/21 05/12/21 23:59 23:59 23:59 Intake Total 3696.92 / 3696.92 4655.5833 / 4655.5833 122 / 122 Output Total 2500 / 2500 2400 / 2400 Balance 1196.92 / 1196.92 2255.5833 / 2255.5833 122 / 122 Lab / Micro Data Result Diagrams: 05/12/21 05:35 05/12/21 05:35 Labs: Laboratory Results - last 24 hr 05/12/21 05:35: WBC 7.2, RBC 4.21, Hgb 11.6 L, Hct 34.4 L, MCV 81.7, MCH 27.6, MCHC 33.7 D, RDW Std Deviation 41.9, RDW Coeff of [place] 14.2, Plt Count 294, MPV 10.4, Immature Gran % (Auto) 1.000 H, Neut % (Auto) 75.1 H, Lymph % (Auto) 10.1 L, [place] % (Auto) 8.5, Eos % (Auto) 4.7, Baso % (Auto) 0.6, Absolute Neuts (auto) 5.4, Absolute Lymphs (auto) 0.73 L, Nucleated RBC % 0 05/12/21 05:35: Sodium 138, Potassium 2.8 L, Chloride 101, Carbon Dioxide 27.0, Anion Gap 10, BUN 5 L, Creatinine 0.51 L, Estim Creat Clear Calc 35.45, Est GFR (MDRD) Af Amer 152, Est GFR (MDRD) Non-Af 126, BUN/Creatinine Ratio 9.9 L, Glucose 106, Calcium 8.5, Total Bilirubin 0.60, AST 76 H, ALT 168 H, Alkaline Phosphatase 363 H, Total Protein 7.0, Albumin 2.8 L, Globulin 4.2, Albumin/Globulin Ratio 0.7 L 05/12/21 05:35: Phosphorus 1.7 L Radiography Diagnostic Testing: Radiology Impression MRCP 05/11/21 09:20 IMPRESSION: Normal MR Cholangiopancreatography (MRCP). Electronically Signed: Mook Landaverde MD at 12:22 EST Tel , Service support , Physical Exam Const alert, oriented x3 and no apparent distress Exam Limitations: no limitations HEENT head/scalp atraumatic and moist oral mucous membranes Head and Scalp: normocephalic Eyes PERRL, EOMs intact bilaterally and conjunctivae normal Neck no lymphadenopathy Resp normal respiratory effort, no retractions, no use of accessory muscles and clear to auscultation bilaterally Cardio regular rate, regular rhythm, S1 normal heart sound, S2 normal heart sound and no murmurs GI normal to inspection, nondistended, normoactive bowel sounds and soft to palpation GI Narrative: moderate epigastric tenderness, no guarding or rebound tenderness. Extremity normal to inspection, full ROM and no clubbing, cyanosis or edema Peripheral Pulses: Yes pulses 2+ throughout Skin no rashes or lesions noted Neuro oriented x3, CN's II-XII intact bilaterally and moves all extremities Sensorium / Orientation: awake and alert Psych affect normal Assessment & Plan Assessment/Plan (1) Acute pancreatitis: PLAN: #Acute pancreatitis * still has epigastric pain. * MRCP was negative for any stone or stricture and was essentially normal * general surgery on board. To continue keeping patient NPO in light of her severe pain. * coninue gentle hydration with IVF * IV morphine prn for pain * #HYpokalemia: K is still 2.8 today. Will replace aggressively and trend. #Hypertension * pm cardizem, and HCTZ as well as losartan * #Afib: on cardizem #Hyperlipidemia: on statin #Hypothyroidism; on synthroid #ANxiety and depression: on effexor DVT prophylaxis; lovenox GI prophylaxis: on PPI Charges/Coding Visit Charges Inpatient E&M: 38128 Subs Hosp L3
--- NOTE | 2021-05-12 14:22 | NURSING ---
PER REPORT ALL IVF HAVE BEEN PAUSED D/T NO IV ACCESS. MIDLINE PLACED BY MARKET PRESIDENT SO IV MEDS WILL BE RESTARTED.
[2021-05-12] MEDS: Ondansetron 4 MG/2 ML Vial IV (14:28)
[2021-05-12 14:30] VITALS: BP 135/80; PULSE 77; RESP 18; TEMP 36.7; O2SAT 97
[2021-05-12] MEDS: 0.9% Normal Saline 1,000 ML 75 ML IV (15:38)
[2021-05-12 20:30] VITALS: BP 138/73; PULSE 75; RESP 16; TEMP 36.6; O2SAT 95
[2021-05-12] MEDS: 0.9% Saline Lock 10 ML Syringe IV (22:22)
[2021-05-12] MEDS: Pantoprazole Sodium 20 MG Tablet PO (22:26)
[2021-05-12] MEDS: Pravastatin 20 MG Tablet PO (22:26)
[2021-05-13] VITALS (7 sets, daily range): BP systolic 121–133; BP diastolic 64–72; PULSE 70–82; RESP 18; TEMP 36.8–37; O2SAT 93–98
[2021-05-13] MEDS: 0.9% Normal Saline 1,000 ML 75 ML IV (05:17)
[2021-05-13] MEDS: HYDROmorphone 1 MG/ML Syringe IV ×3 (05:21→21:41)
[2021-05-13] MEDS: 0.9% Saline Lock 10 ML Syringe IV ×2 (05:21→14:44)
[2021-05-13 05:25] LABS: Absolute Lymphocyte Count 1.16 X10^3/uL (0.83-4.51); Absolute Neutrophil Count 3.9 X10^3/uL (2.0-7.7); Basophil# 0.06 X10^3/uL; Basophil% 0.9 % (0-1); Eosinophil# 0.67 X10^3/uL; Eosinophils% 10.1 % (0-5); Hematocrit 31.5 % (37-47); Hemoglobin 10.4 g/dL (12.0-15.0); Lymphocyte # 1.16 X10^3/ul (0.83-4.51); Lymphocyte % 17.5 % (19-41); Mean Corpuscular Hgb 26.9 pg (27.0-32.0); Mean Corpuscular Volume 81.6 fL (81-99); Monocyte# 0.72 X10^3/uL; Monocyte% 10.9 % (0-10); NRBC Flagged by Analyzer 0 % (0-5); Neutrophil # 3.93 X10^3/uL (2.7-7.7); Neutrophil % 59.5 % (47-70); Platelet Count 302 K/mm3 (150-450); RBC Distribution Width CV 14.4 % (11.6-14.6); RBC Distribution Width SD 42.6 fl (35.1-43.9); Red Blood Count 3.86 M/mm3 (4.2-5.4); White Blood Count 6.6 K/mm3 (4.4-11.0)
[2021-05-13 05:56] LABS: ALB/GLOB Ratio 0.6 RATIO (0.9-2.4); AST(SGOT) 27 U/L (15-37); Alanine Aminotransfer ALT/SGPT 108 U/L (13-56); Albumin, Serum 2.4 g/dL (3.2-5.0); Alkaline Phosphatase 273 U/L (45-117); Anion Gap 7 (5-15); BUN 6 mg/dL (7-18); BUN/Creat Ratio 11.9 RATIO (10-20); Calcium,Total 8.7 mg/dL (8.5-10.1); Chloride 105 mmol/L (98-107); EST Glomerular Filtration Rate 127 mL/min (>60); Est Glom Filt Rate - Afr Amer 153 mL/min (>60); Estimated Creatinine Clearance 35.45 ml/min; Globulin 3.7 g/dL (2.2-4.2); Glucose 111 mg/dL (74-106); Potassium 3.4 mmol/L (3.5-5.1); Protein, Total 6.1 g/dL (6.4-8.2); Sodium Level 139 mmol/L (136-145)
[2021-05-13] MEDS: Potassium Chloride Oral Tablet 20 MEQ 40 MEQ PO (07:46)
[2021-05-13] MEDS: Venlafaxine XR 150 MG Capsule PO (10:43)
[2021-05-13] MEDS: Losartan Potassium 25 MG Tablet PO ×2 (10:43→21:39)
[2021-05-13] MEDS: hydroCHLOROthiazide 12.5mg 12.5 MG PO (10:43)
[2021-05-13] MEDS: Enoxaparin 40 MG/0.4 ML Syringe SC (10:43)
[2021-05-13] MEDS: dilTIAZem CD 120 MG Capsule PO (10:44)
[2021-05-13] MEDS: dilTIAZem CD 300 MG Capsule PO (10:44)
[2021-05-13] MEDS: Tolterodine Tartrate 4 MG CAP.SA PO (10:45)
[2021-05-13] MEDS: traMADol 50 MG Tablet PO (10:57)
--- NOTE | 2021-05-13 11:07 | PN.HOSP_ITS ---
Subjective Subjective Patient seen and examined. She feels better today and abdominal pain is improved. He has been tolerating the full liquid diet. Review of systems otherwise negative. Objective Data Objective Data Vital Signs: Vital Signs Temp Pulse Resp BP Pulse Ox 98.4 F 70 18 121/67 H 97 05/13/21 08:39 05/13/21 08:39 05/13/21 08:39 05/13/21 08:39 05/13/21 08:39 Oxygen Flow Rate (L/min) 2 Oxygen Delivery Method Room Air Weight: 166 lb 14.239 oz Body Mass Index (BMI) 32.8 Intake & Output: Intake and Output for Last 24 Hours 05/11/21 05/12/21 05/13/21 23:59 23:59 23:59 Intake Total 4655.5833 / 4655.5833 2375.25 / 2375.25 1224 / 1224 Output Total 2400 / 2400 1050 / 1450 800 / 800 Balance 2255.5833 / 2255.5833 1325.25 / 925.25 424 / 424 Lab / Micro Data Result Diagrams: 05/13/21 04:50 05/13/21 04:50 Labs: Laboratory Results - last 24 hr 05/13/21 04:50: WBC 6.6, RBC 3.86 L, Hgb 10.4 L, Hct 31.5 L, MCV 81.6, MCH 26.9 L, MCHC 33.0, RDW Std Deviation 42.6, RDW Coeff of [place] 14.4, Plt Count 302, MPV 10.0, Immature Gran % (Auto) 1.100 H, Neut % (Auto) 59.5, Lymph % (Auto) 17.5 L, [place] % (Auto) 10.9 H, Eos % (Auto) 10.1 H, Baso % (Auto) 0.9, Absolute Neuts (auto) 3.9, Absolute Lymphs (auto) 1.16, Nucleated RBC % 0 05/13/21 04:50: Sodium 139, Potassium 3.4 L, Chloride 105, Carbon Dioxide 27.0, Anion Gap 7, BUN 6 L, Creatinine 0.50 L, Estim Creat Clear Calc 35.45, Est GFR (MDRD) Af Amer 153, Est GFR (MDRD) Non-Af 127, BUN/Creatinine Ratio 11.9, Glucose 111 H, Calcium 8.7, Total Bilirubin 0.40, AST 27, ALT 108 H, Alkaline Phosphatase 273 H, Total Protein 6.1 L, Albumin 2.4 L, Globulin 3.7, [place] min/Globulin Ratio 0.6 L Physical Exam Const alert, oriented x3 and no apparent distress General Appearance: cooperative Exam Limitations: no limitations HEENT normocephalic, head/scalp atraumatic and moist oral mucous membranes Head and Scalp: normocephalic Eyes PERRL, EOMs intact bilaterally and conjunctivae normal Neck no lymphadenopathy, supple and no JVD Lymph Lymphatic: no lymphadenopathy noted Resp normal respiratory effort, normal air movement, no retractions, no use of accessory muscles and clear to auscultation bilaterally Auscultation: Negative for crackles, rales, rhonchi or wheezes Cardio regular rate, regular rhythm, S1 normal heart sound, S2 normal heart sound and no murmurs GI normal to inspection, nondistended, normoactive bowel sounds, soft to palpation and non-distended GI Narrative: minimal epigastric tenderness, no guarding or rebound tenderness Extremity normal to inspection, full ROM and no clubbing, cyanosis or edema Peripheral Pulses: Yes pulses 2+ throughout Skin no rashes or lesions noted General Skin Exam: turgor normal Neuro oriented x3, CN's II-XII intact bilaterally, moves all extremities, no focal motor deficits and no sensory deficits noted Sensorium / Orientation: awake and alert Psych affect normal Appearance: appropriate Assessment & Plan Assessment/Plan (1) Acute pancreatitis: PLAN: #Acute pancreatitis * epigastric pain has improved markedly * MRCP was negative for any stone or stricture and was essentially normal * general surgery on board. * tolerated full liquid diet. Advance to soft diet. * coninue gentle hydration with IVF * IV morphine prn for pain * #HYpokalemia: potassium is 3.4 today. Will replace and trend. #Hypertension * on cardizem, and HCTZ as well as losartan * #Afib: on cardizem #Hyperlipidemia: on statin #Hypothyroidism; on synthroid #Anxiety and depression: on effexor DVT prophylaxis; lovenox GI prophylaxis: on PPI Charges/Coding Visit Charges Inpatient E&M: 52478 Subs Hosp L2
[2021-05-13] MEDS: Pantoprazole Sodium 20 MG Tablet PO (21:39)
[2021-05-13] MEDS: Pravastatin 20 MG Tablet PO (21:40)
[2021-05-14 03:12] VITALS: BP 136/71; PULSE 71; RESP 18; TEMP 36.7; O2SAT 97
[2021-05-14] MEDS: HYDROmorphone 1 MG/ML Syringe IV ×5 (03:15→23:59)
[2021-05-14 05:23] LABS: Absolute Lymphocyte Count 1.34 X10^3/uL (0.83-4.51); Absolute Neutrophil Count 5.2 X10^3/uL (2.0-7.7); Basophil# 0.08 X10^3/uL; Eosinophil# 0.61 X10^3/uL; Eosinophils% 7.4 % (0-5); Hemoglobin 10.7 g/dL (12.0-15.0); Lymphocyte # 1.34 X10^3/ul (0.83-4.51); Lymphocyte % 16.2 % (19-41); Mean Corp Hgb Conc 33.4 g/dL (32-36); Mean Corpuscular Hgb 27.4 pg (27.0-32.0); Mean Corpuscular Volume 81.8 fL (81-99); Monocyte# 0.92 X10^3/uL; Monocyte% 11.1 % (0-10); NRBC Flagged by Analyzer 0 % (0-5); Neutrophil # 5.16 X10^3/uL (2.7-7.7); Neutrophil % 62.4 % (47-70); Platelet Count 343 K/mm3 (150-450); RBC Distribution Width CV 14.5 % (11.6-14.6); RBC Distribution Width SD 42.9 fl (35.1-43.9); Red Blood Count 3.91 M/mm3 (4.2-5.4); White Blood Count 8.3 K/mm3 (4.4-11.0)
[2021-05-14] MEDS: traMADol 50 MG Tablet PO ×2 (05:54→20:19)
[2021-05-14 05:58] LABS: ALB/GLOB Ratio 0.6 RATIO (0.9-2.4); AST(SGOT) 23 U/L (15-37); Alanine Aminotransfer ALT/SGPT 90 U/L (13-56); Albumin, Serum 2.5 g/dL (3.2-5.0); Alkaline Phosphatase 261 U/L (45-117); Anion Gap 8 (5-15); BUN 6 mg/dL (7-18); BUN/Creat Ratio 11.2 RATIO (10-20); Calcium,Total 8.9 mg/dL (8.5-10.1); Chloride 103 mmol/L (98-107); Creatinine, Serum 0.54 mg/dL (0.55-1.02); EST Glomerular Filtration Rate 118 mL/min (>60); Est Glom Filt Rate - Afr Amer 143 mL/min (>60); Estimated Creatinine Clearance 35.45 ml/min; Globulin 4.1 g/dL (2.2-4.2); Glucose 118 mg/dL (74-106); Potassium 3.7 mmol/L (3.5-5.1); Protein, Total 6.6 g/dL (6.4-8.2); Sodium Level 137 mmol/L (136-145)
[2021-05-14] MEDS: Ondansetron 4 MG/2 ML Vial IV (08:42)
[2021-05-14] MEDS: hydroCHLOROthiazide 12.5mg 12.5 MG PO (08:45)
[2021-05-14] MEDS: Venlafaxine XR 150 MG Capsule PO (08:45)
[2021-05-14] MEDS: Tolterodine Tartrate 4 MG CAP.SA PO (08:45)
[2021-05-14] MEDS: dilTIAZem CD 300 MG Capsule PO (08:45)
[2021-05-14] MEDS: Enoxaparin 40 MG/0.4 ML Syringe SC (08:46)
[2021-05-14] MEDS: Losartan Potassium 25 MG Tablet PO ×2 (08:46→20:18)
[2021-05-14] MEDS: dilTIAZem CD 120 MG Capsule PO (08:46)
[2021-05-14 08:51] VITALS: BP 120/70; PULSE 71; RESP 16; TEMP 37.3; O2SAT 95
--- NOTE | 2021-05-14 10:17 | PN.HOSP_ITS ---
Subjective Subjective Patient seen and examined. She still complains of a bit of abdominal pain with eating but otherwise had no other complaints. Review of systems otherwise negative. She noted to have a low-grade fever of 99.2 Fahrenheit today. Objective Data Objective Data Vital Signs: Vital Signs Temp Pulse Resp BP Pulse Ox 99.2 F H 71 16 120/70 95 05/14/21 08:51 05/14/21 08:51 05/14/21 08:51 05/14/21 08:51 05/14/21 08:51 Oxygen Flow Rate (L/min) 2 Oxygen Delivery Method Room Air Weight: 166 lb 14.239 oz Body Mass Index (BMI) 32.8 Intake & Output: Intake and Output for Last 24 Hours 05/12/21 05/13/21 05/14/21 23:59 23:59 23:59 Intake Total 2375.25 / 2375.25 3156.75 / 3356.75 612 / 612 Output Total 1050 / 1450 2000 / 3400 2300 / 2300 Balance 1325.25 / 925.25 1156.75 / -43.25 -1688 / -1688 Lab / Micro Data Result Diagrams: 05/14/21 04:54 05/14/21 04:54 Labs: Laboratory Results - last 24 hr 05/14/21 04:54: WBC 8.3, RBC 3.91 L, Hgb 10.7 L, Hct 32.0 L, MCV 81.8, MCH 27.4, MCHC 33.4, RDW Std Deviation 42.9, RDW Coeff of Brandon 14.5, Plt Count 343, MPV 10.0, Immature Gran % (Auto) 1.900 H, Neut % (Auto) 62.4, Lymph % (Auto) 16.2 L, [place] % (Auto) 11.1 H, Eos % (Auto) 7.4 H, Baso % (Auto) 1.0, Absolute Neuts (auto) 5.2, Absolute Lymphs (auto) 1.34, Nucleated RBC % 0 05/14/21 04:54: Sodium 137, Potassium 3.7, Chloride 103, Carbon Dioxide 26.0, Anion Gap 8, BUN 6 L, Creatinine 0.54 L, Estim Creat Clear Calc 35.45, Est GFR (MDRD) Af Amer 143, Est GFR (MDRD) Non-Af 118, BUN/Creatinine Ratio 11.2, Glucose 118 H, Calcium 8.9, Total Bilirubin 0.30, AST 23, ALT 90 H, Alkaline Phosphatase 261 H, Total Protein 6.6, Albumin 2.5 L, Globulin 4.1, Albumin/Globulin Ratio 0.6 L Physical Exam Const alert, oriented x3 and no apparent distress General Appearance: cooperative Exam Limitations: no limitations HEENT normocephalic, head/scalp atraumatic and moist oral mucous membranes Head and Scalp: normocephalic Eyes PERRL, EOMs intact bilaterally and conjunctivae normal Neck no lymphadenopathy, supple and no JVD Lymph Lymphatic: no lymphadenopathy noted Resp normal respiratory effort, normal air movement, no retractions, no use of accessory muscles and clear to auscultation bilaterally Auscultation: Negative for crackles, rales, rhonchi or wheezes Cardio regular rate, regular rhythm, S1 normal heart sound, S2 normal heart sound and no murmurs GI normal to inspection, nondistended, normoactive bowel sounds, soft to palpation and non-distended GI Narrative: minimal epigastric tenderness, no guarding or rebound tenderness Palpation: tender epigastric and guarding RUQ Extremity normal to inspection, full ROM and no clubbing, cyanosis or edema Skin no rashes or lesions noted General Skin Exam: turgor normal Neuro oriented x3, CN's II-XII intact bilaterally, moves all extremities, no focal motor deficits and no sensory deficits noted Sensorium / Orientation: awake and alert Psych affect normal Appearance: appropriate Assessment & Plan Assessment/Plan (1) Acute pancreatitis: PLAN: #Acute pancreatitis * epigastric pain has improved, though she does have some mild pain toay * MRCP was negative for any stone or stricture and was essentially normal * general surgery on board. * tolerated full liquid diet. Advance to soft diet. * coninue gentle hydration with IVF * IV morphine prn for pain * #HYpokalemia: resolved. will trend. #Hypertension * on cardizem, and HCTZ as well as losartan * #Afib: on cardizem #Hyperlipidemia: on statin #Hypothyroidism; on synthroid #Anxiety and depression: on effexor DVT prophylaxis; lovenox GI prophylaxis: on PPI Disposition: for likely DC home tomorrow. Patient says she would like to stay for another day since she is still having a bit of pain. Charges/Coding Visit Charges Inpatient E&M: 20693 Subs Hosp L2
[2021-05-14 11:54] VITALS: BP 129/73; PULSE 87; RESP 16; TEMP 36.5; O2SAT 95
[2021-05-14 15:10] VITALS: BP 121/96; PULSE 74; RESP 16; TEMP 36.6; O2SAT 94
[2021-05-14 20:11] VITALS: BP 110/65; PULSE 77; RESP 18; TEMP 37; O2SAT 94
[2021-05-14 20:12] VITALS: RESP 18
[2021-05-14] MEDS: Pravastatin 20 MG Tablet PO (20:18)
[2021-05-14] MEDS: Pantoprazole Sodium 20 MG Tablet PO (20:18)
[2021-05-15 03:18] VITALS: BP 137/68; PULSE 77; RESP 18; TEMP 37.1; O2SAT 94
[2021-05-15] MEDS: traMADol 50 MG Tablet PO ×2 (03:21→11:41)
[2021-05-15 05:59] LABS: Absolute Lymphocyte Count 1.53 X10^3/uL (0.83-4.51); Absolute Neutrophil Count 4.9 X10^3/uL (2.0-7.7); Basophil# 0.05 X10^3/uL; Basophil% 0.6 % (0-1); Eosinophils% 6.4 % (0-5); Hematocrit 33.6 % (37-47); Lymphocyte # 1.53 X10^3/ul (0.83-4.51); Lymphocyte % 19.6 % (19-41); Mean Corp Hgb Conc 32.7 g/dL (32-36); Mean Corpuscular Volume 82.4 fL (81-99); Monocyte# 0.67 X10^3/uL; Monocyte% 8.6 % (0-10); NRBC Flagged by Analyzer 0 % (0-5); Neutrophil # 4.87 X10^3/uL (2.7-7.7); Neutrophil % 62.4 % (47-70); Platelet Count 397 K/mm3 (150-450); RBC Distribution Width CV 14.4 % (11.6-14.6); RBC Distribution Width SD 42.8 fl (35.1-43.9); Red Blood Count 4.08 M/mm3 (4.2-5.4); White Blood Count 7.8 K/mm3 (4.4-11.0)
[2021-05-15] MEDS: HYDROmorphone 1 MG/ML Syringe IV (06:19)
[2021-05-15 06:23] LABS: ALB/GLOB Ratio 0.6 RATIO (0.9-2.4); AST(SGOT) 22 U/L (15-37); Alanine Aminotransfer ALT/SGPT 73 U/L (13-56); Albumin, Serum 2.5 g/dL (3.2-5.0); Alkaline Phosphatase 234 U/L (45-117); Anion Gap 8 (5-15); BUN 9 mg/dL (7-18); Calcium,Total 9.1 mg/dL (8.5-10.1); Chloride 104 mmol/L (98-107); EST Glomerular Filtration Rate 104 mL/min (>60); Est Glom Filt Rate - Afr Amer 126 mL/min (>60); Estimated Creatinine Clearance 35.45 ml/min; Glucose 121 mg/dL (74-106); Potassium 3.7 mmol/L (3.5-5.1); Protein, Total 6.5 g/dL (6.4-8.2); Sodium Level 139 mmol/L (136-145)
[2021-05-15 07:11] VITALS: O2SAT 93
--- NOTE | 2021-05-15 07:45 | PN.SURG_ITS ---
Subjective Subjective Patient seen and examined during AM rounds. She is found lying in bed but awake and alert. She states that her abdominal discomfort is significantly improved. She has some retrosternal discomfort, but states she thinks this is different from her pancreatitis and may be related to her known hiatal hernia. Is zhou erating her current diet without issue. Objective Data Objective Data Vital Signs: Vital Signs Temp Pulse Resp BP Pulse Ox 98.7 F 77 18 137/68 H 94 05/15/21 03:18 05/15/21 03:18 05/15/21 03:18 05/15/21 03:18 05/15/21 03:18 Oxygen Flow Rate (L/min) 2 Oxygen Delivery Method Room Air Weight: 166 lb 14.239 oz Body Mass Index (BMI) 32.8 Intake & Output: Intake and Output for Last 24 Hours 05/13/21 05/14/21 05/15/21 23:59 23:59 23:59 Intake Total 3156.75 / 3356.75 1386 / 1386 300 / 300 Output Total 2000 / 3400 2600 / 2600 1250 / 1250 Balance 1156.75 / -43.25 -1214 / -1214 -950 / -950 Lab / Micro Data Result Diagrams: 05/15/21 05:20 05/15/21 05:20 Labs: Laboratory Results - last 24 hr 05/15/21 05:20: WBC 7.8, RBC 4.08 L, Hgb 11.0 L, Hct 33.6 L, MCV 82.4, MCH 27.0, MCHC 32.7, RDW Std Deviation 42.8, RDW Coeff of [place] 14.4, Plt Count 397, MPV 10.0, Immature Gran % (Auto) 2.400 H, Neut % (Auto) 62.4, Lymph % (Auto) 19.6, [place] % (Auto) 8.6, Eos % (Auto) 6.4 H, Baso % (Auto) 0.6, Absolute Neuts (auto) 4.9, Absolute Lymphs (auto) 1.53, Nucleated RBC % 0 05/15/21 05:20: Sodium 139, Potassium 3.7, Chloride 104, Carbon Dioxide 27.0, Anion Gap 8, BUN 9, Creatinine 0.60, Estim Creat Clear Calc 35.45, Est GFR (MDRD) Af Amer 126, Est GFR (MDRD) Non-Af 104, BUN/Creatinine Ratio 15.0, Glucose 121 H, Calcium 9.1, Total Bilirubin 0.20, AST 22, ALT 73 H, Alkaline Phosphatase 234 H, Total Protein 6.5, Albumin 2.5 L, Globulin 4.0, Albumin/Gl obulin Ratio 0.6 L Physical Exam Const oriented x3 and no apparent distress Resp normal respiratory effort GI GI Narrative: Soft, mildly tender (particularly in the mid epigastrium and left upper quadrant), nondistended Assessment & Plan Assessment/Plan (1) Acute pancreatitis: PLAN: 75-year-old female with resolving acute pancreatitis. Prior work-up demonstrates no persistent biliary obstruction or stones within the gallbladder. Given the improvements in her abdominal pain and tolerance of a diet, discharge could be considered from a surgical standpoint. I would recommend she remain on a low-fat diet for the next week following hospital discharge. Charges/Coding Visit Charges Inpatient E&M: 89400 Subs Hosp L2
[2021-05-15 09:45] VITALS: BP 120/54; PULSE 76; RESP 18; TEMP 36.4; O2SAT 98
[2021-05-15] MEDS: Venlafaxine XR 150 MG Capsule PO (09:48)
[2021-05-15] MEDS: dilTIAZem CD 300 MG Capsule PO (09:48)
[2021-05-15] MEDS: Tolterodine Tartrate 4 MG CAP.SA PO (09:48)
[2021-05-15] MEDS: hydroCHLOROthiazide 12.5mg 12.5 MG PO (09:48)
[2021-05-15] MEDS: Losartan Potassium 25 MG Tablet PO (09:48)
[2021-05-15] MEDS: dilTIAZem CD 120 MG Capsule PO (09:49)
[2021-05-15] MEDS: Enoxaparin 40 MG/0.4 ML Syringe SC (09:49)
--- NOTE | 2021-05-15 10:55 | DS.PCM_ITS ---
Providers Date of Admission: 05/08/21 Primary Care Physician: Dr. Jordi Corona MD Consultations 05/10/21 14:59 Consult: General Surgery Routine Consulting Provider: Santy Wong Reason for Consult: Cholecystitis and gallstone pancreatitis EMERGENT Consult: No MD Notified: Yes Date Notified: 05/10/21 Time Notified: 15:35 Method of Notification: Text Reason For Visit: PANCREATITIS Diagnosis Discharge Diagnosis (1) Acute pancreatitis: Status: Acute Code(s): K85.90 - Acute pancreatitis without necrosis or infection, unspecified Medications at Discharge Home Medications ascorbic acid (vitamin C) 500 mg PO DAILY@0800 08/24/16 cholecalciferol (vitamin D3) 500 unit PO DAILY 08/24/16 diltiazem HCl 420 mg PO DAILY 08/24/16 esomeprazole magnesium 10 mg PO QHS 08/24/16 hydrochlorothiazide 12.5 mg PO DAILY 08/24/16 levothyroxine 50 mcg PO DAILY 08/24/16 losartan 25 mg PO BID 08/24/16 multivitamin 1 ea PO DAILY 08/24/16 tolterodine 4 mg PO DAILY 08/24/16 tramadol 50 mg PO Q6H PRN PRN 08/24/16 pravastatin 10 mg tablet 20 mg PO QHS tab 06/30/18 venlafaxine 150 mg PO DAILY 08/20/18 Align 4 mg PO DAILY 05/09/21 Hospital Course Operations None Summary of Care Provided Minutes Spent on Discharge: 40 Hospital Course: Patient is a 75-year-old female with an extensive past medical history as outlined was admitted through the ED on 05/08/2021 with a complaint of acute abdominal pain which was associated with nausea and vomiting. On admission, her lipase was elevated at 13,[address] of the abdomen was negative for any evidence of obstructive stone. Liver enzymes were only mildly elevated. She was admitted to be managed for acute pancreatitis. She was kept n.p.o. and hydrated with IV fluids as well as given pain medication. General surgery was consulted. She had MRCP which was normal and did not show any evidence of stones or filling defects. General surgery felt that the pancreatitis was lik michael due to a solitary stone was/that had already passed and that she was a very high surgical risk given her prior surgical history and so there was no plan for same admission cholecystectomy. Patient's abdominal pain gradually improved and she was started on a diet and this was advanced gradually to a regular diet which she tolerated. Hospital course was complicated by hypokalemia which resolved with replacement. Patient remained stable and was discharged home on 05/15/2021. She is to follow-up with her primary care doctor and is to follow- up with gastroenterology. Patient seen and examined prior to discharge. She had no active complaints and felt well. Review of systems otherwise negative. Labs and vitals reviewed. Home medication reviewed and reconciled. Physical Exam Const alert, oriented x3 and no apparent distress General Appearance: cooperative, comfortable and well kempt Exam Limitations: no limitations HEENT normocephalic, head/scalp atraumatic, hearing grossly normal bilaterally and moist oral mucous membranes Eyes PERRL, EOMs intact bilaterally and conjunctivae normal Neck no lymphadenopathy, supple and no JVD Lymph Lymphatic: no lymphadenopathy noted Resp normal respiratory effort, normal air movement, no retractions, no use of accessory muscles and clear to auscultation bilaterally Auscultation: Negative for crackles, rales, rhonchi or wheezes Cardio regular rate, regular rhythm, S1 normal heart sound, S2 normal heart sound and no murmurs GI normal to inspection, nondistended, normoactive bowel sounds, soft to palpation, non-tender and non-distended GI Narrative: has colostomy bag in place Palpation: tender epigastric and guarding RUQ Extremity normal to inspection, full ROM and no clubbing, cyanosis or edema Skin no rashes or lesions noted General Skin Exam: turgor normal Neuro oriented x3, CN's II-XII intact bilaterally, moves all extremities, no focal motor deficits and no sensory deficits noted Sensorium / Orientation: awake and alert Psych affect normal Appearance: appropriate Weight / BMI Weight Weight: 166 lb 14.239 oz Body Mass Index (BMI) 32.8 ABG / Lab / Microbiology Data Result Diagrams: 05/15/21 05:20 05/15/21 05:20 Laboratory: Laboratory Results - last 24 hr 05/15/21 05:20: WBC 7.8, RBC 4.08 L, Hgb 11.0 L, Hct 33.6 L, MCV 82.4, MCH 27.0, MCHC 32.7, RDW Std Deviation 42.8, RDW Coeff of Brandon 14.4, Plt Count 397, MPV 10.0, Immature Gran % (Auto) 2.400 H, Neut % (Auto) 62.4, Lymph % (Auto) 19.6, [place] % (Auto) 8.6, Eos % (Auto) 6.4 H, Baso % (Auto) 0.6, Absolute Neuts (auto) 4.9, Absolute Lymphs (auto) 1.53, Nucleated RBC % 0 05/15/21 05:20: Sodium 139, Potassium 3.7, Chloride 104, Carbon Dioxide 27.0, An ion Gap 8, BUN 9, Creatinine 0.60, Estim Creat Clear Calc 35.45, Est GFR (MDRD) Af Amer 126, Est GFR (MDRD) Non-Af 104, BUN/Creatinine Ratio 15.0, Glucose 121 H , Calcium 9.1, Total Bilirubin 0.20, AST 22, ALT 73 H, Alkaline Phosphatase 234 H, Total Protein 6.5, Albumin 2.5 L, Globulin 4.0, Albumin/Globulin Ratio 0.6 L D/C Instructions Discharge Diet: Low fat / Low cholesterol Discharge Activity: Return to Normal Activity Weight Bearing Status: Weight bearing as tolerated Call your doctor if you observe: Uncontrolled pain Meaningful Use Info Meaningful Use Diagnoses (Choose all that apply): None applicable Discharge Plan Admission Admit Date/Time: 05/08/21 23:47 Primary Reason for Your Visit: acute pancreatitis Attending Provider: Shruti Mancuso Primary Care Provider: Jordi Corona Consulting Providers: Santy Wong Instructions Patient Instructions: Pancreatitis Acute Dc, ED Pancreatitis Discharge Orders/Prescriptions Prescriptions: Continued multivitamin 1 EACH tablet 1 ea PO DAILY RF: 0 diltiazem HCl 420 MG capsule,extended release 24 hr 420 mg PO DAILY RF: 0 tolterodine 4 MG capsule,extended release 24hr 4 mg PO DAILY RF: 0 tramadol 50 MG tablet 50 mg PO Q6H PRN PRN (Reason: Pain) RF: 0 ascorbic acid (vitamin C) 500 MG tablet 500 mg PO DAILY@0800 RF: 0 levothyroxine 50 MCG tablet 50 mcg PO DAILY RF: 0 losartan 25 MG tablet 25 mg PO BID RF: 0 hydrochlorothiazide 12.5 MG capsule 12.5 mg PO DAILY RF: 0 esomeprazole magnesium 20 MG capsule 10 mg PO QHS RF: 0 cholecalciferol (vitamin D3) 1,000 UNIT capsule 500 unit PO DAILY RF: 0 pravastatin 10 mg tablet 20 mg PO QHS RF: 0 venlafaxine 75 MG capsule 150 mg PO DAILY RF: 0 Align 4 mg Capsule 4 mg PO DAILY RF: 0 Referrals / Follow Up: Santy Wong MD [STAFF PHYSICIAN] - Within 2 Weeks Jordi Corona MD [Primary Care Provider] - Within 2 Weeks Disposition Disposition (needs filled in before D/C Order can be placed): Home, Self Care Charges/Coding Visit Charges Inpatient E&M: 66088 Disch Hosp
[2021-05-15] MEDS: Ondansetron 4 MG/2 ML Vial IV (11:41)
[2021-05-15] MEDS: 0.9% Saline Lock 10 ML Syringe IV (11:41)
[2021-05-15 11:57] VITALS: BP 127/67; PULSE 75; RESP 18; TEMP 36.9; O2SAT 94
== END 2021-05-15 14:25 | disposition home or self-care (01) | DRG 439 ==
LOC: ED 23:03 → MS3 05-09 00:22
PROVIDERS: Family Medicine; Admitting Provider Family Medicine; Emergency Provider Emergency Medicine; PCP Internal Medicine; Visit Provider Student in an Organized Health Care Education/Training Program
DX: K85.90 Acute pancreatitis without necrosis or infection, unspecified (principal); Q43.1 Hirschsprung's disease; E87.6 Hypokalemia; I10 Essential (primary) hypertension; I48.91 Unspecified atrial fibrillation; E03.9 Hypothyroidism, unspecified; E78.5 Hyperlipidemia, unspecified; F32.A Depression, unspecified; F41.9 Anxiety disorder, unspecified; H91.92 Unspecified hearing loss, left ear; K21.9 Gastro-esophageal reflux disease without esophagitis; M13.0 Polyarthritis, unspecified; M81.0 Age-related osteoporosis without current pathological fracture; N31.8 Other neuromuscular dysfunction of bladder; Z93.3 Colostomy status; Z90.49 Acquired absence of other specified parts of digestive tract; Z87.19 Personal history of other diseases of the digestive system; Z79.899 Other long term (current) drug therapy
CPT/HCPCS: 36415; 74177; 74181; 76705; 80048; 80053; 80076; 83605; 83690; 83735; 84100; 85025; 99285; J7030; J7040; Q9967; A4216; J0295; J2405; J7799

== ENCOUNTER → 2021-10-04 | Outpatient (CLI) | payer MEDICARE, BC, SELFPAY ==
--- NOTE | 2021-10-04 13:17 | MRI_ITS ---
STUDY: MR CHOLANGIOPANCREATOGRAPHY (MRCP) REASON FOR EXAM: Female, 76 years old. PAIN CBD STONES PANCREATITIS pancreatitis TECHNIQUE: Standard MRCP technique was utilized. 3-D postprocessing images were obtained. COMPARISON: 05/11/2021 FINDINGS: Large hiatal hernia. Partially visualized defect in the left lower quadrant may be an ostomy. Peristomal hernia or ventral hernia is not excluded. Gall Bladder: Normal gallbladder and extrahepatic biliary system. Cystic duct: Normal with no demonstrated fixed filling defect. Intrahepatic ducts: Normal visualized intrahepatic ducts with no demonstrated fixed filling defect, dilation or stricture. Common hepatic duct: Normal with no demonstrated fixed filling defect, dilation or stricture. Common bile duct: Normal with no demonstrated fixed filling defect, dilation or stricture. Pancreatic duct: Normal with no demonstrated fixed filling defect, dilation or stricture. MRI/MRCP Abdomen without Contrast IMPRESSION: No evidence for pancreatitis. Partially visualized defect in the left lower quadrant may be an ostomy. Peristomal hernia or ventral hernia is not excluded. Electronically Signed: Edwin Flores MD at 21:32 EDT ,
== END | disposition home or self-care (01) ==
LOC: MRI 13:17
PROVIDERS: PCP Internal Medicine; Visit Provider Internal Medicine Gastroenterology
DX: K85.90 Acute pancreatitis without necrosis or infection, unspecified (principal)
CPT/HCPCS: 74181

== ENCOUNTER → 2022-08-31 | Outpatient (CLI) | payer MEDICARE, BC, SELFPAY ==
--- NOTE | 2022-08-31 13:20 | BI_ITS ---
MAMMOGRAPHY - BILATERAL SCREENING 3-D TOMOSYNTHESIS REASON FOR EXAM: Female, 76 years old. Routine screening PERTINENT HISTORY: Grandmother and sister with breast cancer.. TECHNIQUE: 2-D mammograms and 3-D Tomosynthesis of the breast (s) were performed. CAD was performed. COMPARISON: 02/17/2021 FINDINGS: The breast composition is heterogeneously dense that can obscure small breast masses. Scattered benign calcifications are seen. No dense spiculated masses or suspicious microcalcifications are identified. No architectural distortion is identified. There is no skin thickening or retraction. There has been no significant change since the prior study. BI/SCRN MAMM (CAD)W/FRITZ BILAT IMPRESSION: No mammographic signs of malignancy. Routine yearly mammograms recommended. ASSESSMENT CATEGORY: BIRADS Category 2: Benign. A letter regarding these results will be sent to the patient by the facility within 30 days. FOLLOW UP RECOMMENDATION: Yearly follow up mammogram recommended. (A) Approximately 10% of breast cancers are not detected by mammography. A normal mammogram should not delay biopsy of a clinically suspicious abnormality. Electronically Signed: Nikhil Viveros MD at 14:12 EDT ,
== END | disposition home or self-care (01) ==
LOC: OPBI 13:20
PROVIDERS: PCP Internal Medicine; Referring Provider Obstetrics & Gynecology; Visit Provider Obstetrics & Gynecology
DX: Z12.31 Encounter for screening mammogram for malignant neoplasm of breast (principal)
CPT/HCPCS: 77063; 77067

== ENCOUNTER 2024-06-06 04:53 | Emergency (ER) | payer MEDICARE, BC, SELFPAY ==
[2024-06-06 04:57] VITALS: BP 133/64; PULSE 82; RESP 18; TEMP 36.4; O2SAT 95; BMI 32.3
[2024-06-06 05:01] VITALS: O2SAT 94
--- NOTE | 2024-06-06 05:19 | EKG12_ITS ---
Test Reason : DYSRHYTHMIA Blood Pressure : */* mmHG Vent. Rate : 79 BPM Atrial Rate : 79 BPM P-R Int : 154 ms QRS Dur : 86 ms QT Int : 368 ms P-R-T Axes : -22 5 80 degrees QTcB Int : 421 ms Normal sinus rhythm Nonspecific ST and T wave abnormality Abnormal ECG Confirmed by CAMPBELL CASTELLANOS, CASEY ([id number]), editor magazine ISABEL JAIMES ([id number]) on 06/08/2024 11:04:11 AM Referred By: YONI Confirmed By: CASEY HIGHTOWER MD
--- NOTE | 2024-06-06 05:19 | CT_ITS ---
EXAM: CT ABDOMEN AND PELVIS WITH INTRAVENOUS CONTRAST CLINICAL INDICATION: abd pain / ? Pancreatitis TECHNIQUE: Helically acquired images were obtained of the abdomen and pelvis with intravenous contrast. This CT exam was performed using one or more of the following dose reduction techniques: automated exposure control, adjustment of the mA and/or kV according to patient size, and/or use of iterative reconstruction technique. CONTRAST: IV 100mL [id number]-370 COMPARISON: CT Abdomen Pelvis dated 05/08/2021 and 09/18/2019 FINDINGS: LOWER THORAX: Large hiatal hernia again noted with large portion of the stomach projecting into the left hemithorax. Mild atelectatic change left lung base related to the large hiatal hernia. Normal heart size. Prominent coronary artery calcification and prominent calcification of the mitral valve annulus. ABDOMEN: LIVER: Normal. Homogeneous. No focal mass. GALLBLADDER AND BILE DUCTS: Normal. No calcified gallstones. No gallbladder distention or wall edema. No intra- or extrahepatic biliary ductal dilation. PANCREAS: Normal. No focal cystic or solid mass. SPLEEN: Normal. Normal size without focal cystic or solid mass. ADRENALS: Normal. No nodules. KIDNEYS AND URETERS: Normal. Normal renal size and position. No hydronephrosis. STOMACH AND BOWEL: The left-sided colostomy again seen with multiple small bowel loops herniating into the parastomal hernia. No evidence of bowel obstruction. Moderate stool burden within the large bowel. Surgical anastomosis of the ileum and proximal colon again seen within the right lower quadrant. PELVIS: APPENDIX: Appendix is surgically absent. BLADDER: Normal. REPRODUCTIVE: Hysterectomy noted. ABDOMEN and PELVIS: INTRAPERITONEAL SPACE: Normal. No ascites or other fluid collection. No free air. BONES/JOINTS: No suspicious lytic or blastic abnormality. SOFT TISSUES: See above. VASCULATURE: See above. LYMPH NODES: Normal. No enlarged lymph nodes. OTHER FINDINGS: Wall thickening of the Annia pouch similar to prior exam. CT/Abdomen/Pelvis W IV Cont ONLY IMPRESSION: 1. No evidence of acute pancreatitis. 2. Large hiatal hernia. 3. Constipation. 4. Additional nonacute findings as detailed above. Electronically Signed: Juan Villatoro MD at 8:41 EST ,
[2024-06-06] MEDS: Ondansetron 4 MG/2 ML Vial IV (05:45)
[2024-06-06] MEDS: HYDROmorphone 0.5 MG/0.5 ML SYRINGE IV (05:45)
[2024-06-06] MEDS: 0.9% Normal Saline (500mL Bag) 500 ML 999 ML IV (05:46)
[2024-06-06 05:55] LABS: Absolute Lymphocyte Count 1.03 X10^3/uL (0.83-4.51); Absolute Neutrophil Count 9.1 X10^3/uL (2.0-7.7); Basophil# 0.08 X10^3/uL; Basophil% 0.7 % (0-1); Eosinophil# 0.41 X10^3/uL; Eosinophils% 3.6 % (0-5); Hemoglobin 12.5 g/dL (12.0-15.0); Lymphocyte # 1.03 X10^3/ul (0.83-4.51); Lymphocyte % 9.1 % (19-41); Mean Corp Hgb Conc 32.9 g/dL (32-36); Mean Corpuscular Hgb 29.6 pg (27.0-32.0); Monocyte# 0.74 X10^3/uL; Monocyte% 6.5 % (0-10); NRBC Flagged by Analyzer 0 % (0-5); Neutrophil # 9.07 X10^3/uL (2.7-7.7); Neutrophil % 79.7 % (47-70); Platelet Count 296 K/mm3 (150-450); RBC Distribution Width CV 13.6 % (11.6-14.6); RBC Distribution Width SD 44.9 fl (35.1-43.9); Red Blood Count 4.22 M/mm3 (4.2-5.4); White Blood Count 11.4 K/mm3 (4.4-11.0)
--- NOTE | 2024-06-06 06:12 | RAD_ITS ---
EXAM: XR CHEST, 2 VIEWS CLINICAL INDICATION: dyspnea TECHNIQUE: Frontal and lateral views of the chest. COMPARISON: No relevant prior studies available. FINDINGS: LUNGS AND PLEURAL SPACES: Mild compression atelectasis of the left. Lungs are otherwise clear. No pleural effusion or pneumothorax. HEART: Normal heart size. MEDIASTINUM: Large hiatal hernia projects into the left hemithorax. BONES/JOINTS: No acute abnormality. RAD/Chest PA and Lateral IMPRESSION: Large hiatal hernia. Electronically Signed: Juan Villatoro MD at 8:17 EST ,
[2024-06-06 06:17] LABS: AST(SGOT) 20 U/L (15-37); Alanine Aminotransfer ALT/SGPT 19 U/L (13-56); Albumin, Serum 3.6 g/dL (3.2-5.0); Alkaline Phosphatase 88 U/L (45-117); Anion Gap 5 (5-15); BUN 22 mg/dL (7-18); BUN/Creat Ratio 23.8 RATIO (10-20); Calcium,Total 8.9 mg/dL (8.5-10.1); Chloride 107 mmol/L (98-107); Creatinine, Serum 0.93 mg/dL (0.55-1.02); EST Glomerular Filtration Rate 62 mL/min (>60); Est Glom Filt Rate - Afr Amer 75 mL/min (>60); Estimated Creatinine Clearance 45.82 ml/min; Globulin 3.3 g/dL (2.2-4.2); Glucose 128 mg/dL (74-106); Lipase 32 U/L (13-75); Protein, Total 6.9 g/dL (6.4-8.2); Sodium Level 138 mmol/L (136-145)
[2024-06-06 06:22] LABS: Lactic Acid 1.4 mmol/L (0.4-1.9)
[2024-06-06 06:53] VITALS: BP 115/62; PULSE 73; RESP 18; O2SAT 94
--- NOTE | 2024-06-06 07:39 | EDS_ITS ---
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 She denies any history of obstruction but does admit to previous pancreatitis. Patient states she went to bed feeling normal and then awoke around 3 in the morning with midepigastric upper abdominal pain. She states that it felt it was difficult to take a deep breath secondary to the pain and as the pain was not resolving with [id number] medication or time she presents for evaluation. 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 Impaired fasting glucose Hypertonicity of bladder Hypothyroidism Hyperlipidemia Generalized arthritis Anxiety Essential hypertension Home Medications ?Medication ?Instructions ?Recorded ?Last Taken ?Type ascorbic acid (vitamin C) 500 mg 500 mg PO DAILY@0800 supplement 08/24/16 Unknown History tablet cholecalciferol (vitamin D3) 25 500 unit PO DAILY supplement 08/24/16 Unknown History mcg (1,000 unit) capsule diltiazem HCl 420 mg capsule,24 420 mg PO DAILY blood pressure 08/24/16 08/24/16 History hr,extended release esomeprazole magnesium 20 mg 10 mg PO QHS reflux 08/24/16 Unknown History capsule,delayed release levothyroxine 50 mcg tablet 50 mcg PO DAILY thyroid 08/24/16 Unknown History losartan 25 mg tablet 25 mg PO BID blood pressure 08/24/16 Unknown History multivitamin 1 ea PO DAILY supplement 08/24/16 Unknown History tramadol 50 mg tablet 50 mg PO Q6H PRN PRN Pain 08/24/16 Unknown History pravastatin 10 mg tablet 20 mg PO QHS cholesterol 06/30/18 Unknown History polyethylene glycol 3350 17 17 g PO DAILY #510 grams 06/06/24 Unknown Rx gram/dose oral powder (Miralax) tolterodine 4 mg capsule,extended 4 mg PO DAILY 06/06/24 Unknown History release 24 hr venlafaxine 150 mg 150 mg PO DAILY 06/06/24 Unknown History capsule,extended release 24 hr venlafaxine 37.5 mg 37.5 mg PO DAILY 06/06/24 Unknown History capsule,extended release 24 hr Allergy/AdvReac Type Severity Reaction Status Date / Time Sulfa (Sulfonamide Allergy Hives Verified 06/06/24 04:53 Antibiotics) Family History Mother Hypertension Father Myocardial infarction Grandmother Liver cancer Sister Breast cancer Surgical History History of appendectomy S/P colostomy Hx of total knee arthroplasty History of tonsillectomy H/O: hysterectomy Colostomy status Social History Smoking Status: Never smoker alcohol intake: never substance use type: does not use caffeine: No what type of physical activity do you participate in: none seatbelt use: always do you feel safe at home: Yes additional social history: - Yared DESMOND ROS ED Constitutional Constitutional ED: Denies chills or fever(s) ENT ENT ED: Denies rhinorrhea or sore throat Cardiovascular Cardiovascular: Denies chest pain, palpitations or racing heartbeat Respiratory/Chest Respiratory/Chest: Reports dyspnea; Denies cough Gastrointestinal Gastrointestinal: Reports abdominal pain and nausea; Denies constipation, diarrhea or vomiting Genitourinary Genitourinary ED: Denies dysuria Musculoskeletal Musculoskeletal: Denies myalgias Integumentary Denies rash Neurologic Neurologic: Denies headache(s) Psychiatric Psychiatric: Reports anxiety Hematologic/Lymphatic Hematologic/Lymphatic: Denies easy bleeding or easy bruising EXAM Physical Exam Const Vital Signs: 06/06/24 04:57 06/06/24 05:01 06/06/24 05:01 Temperature 97.5 F L Temperature Source Oral Pulse Rate 82 Respiratory Rate 18 Respiratory Effort Normal Non-Labored Normal Non-Labored Respiratory Depth Normal Respiratory Pattern Normal Normal Blood Pressure 133/64 H Blood Pressure Mean 87 Pulse Ox 95 Oxygen Delivery Method Room Air Room Air Oxygen Flow Rate (L/min) 06/06/24 06:53 06/06/24 07:42 06/06/24 07:42 Temperature Temperature Source Pulse Rate 73 Respiratory Rate 18 Respiratory Effort Respiratory Depth Respiratory Pattern Blood Pressure 115/62 Blood Pressure Mean 79 Pulse Ox 94 87 94 Oxygen Delivery Method Room Air Room Air Nasal Cannula Oxygen Flow Rate (L/min) 2 Positive well nourished and well developed General Appearance ED: well developed; Negative for pallor HEENT Reports moist mucous membranes HEENT Narrative: Normocephalic atraumatic No tongue or lip swelling no oral lesions no airway edema or compromise; no secondary findings in the posterior pharynx to suggest infection Eyes PERRL and EOMs intact bilaterally General Eye ED: Negative for scleral icterus Neck supple and no JVD Neck Narrative: No nuchal rigidity or meningeal signs Chest Wall palpation of chest normal Resp normal respiratory effort Resp Narrative: Breath sounds are diminished throughout with faint rhonchi noted in bilateral lower lobes but no signs of respiratory distress Cardio regular rate and regular rhythm Rate: other Other Details: Regular rate and rhythm without murmurs rubs or gallops Radial and carotid pulses are equal and symmetric GI non-distended and no masses GI Narrative: Abdomen is soft and nondistended with hypoactive bowel sound. There is r eproducible pain with palpation in the upper abdomen greatest in the midepigastric region with slight guarding at this site. No pulsatile mass or fluid wave. No obvious incarcerated hernia noted. No increased tympany. Auscultation: hypoactive bowel sounds Palpation: soft Extremity normal to inspection Neuro oriented x3, CN's II-XII intact bilaterally and no sensory deficits noted Sensorium / Orientation: alert Motor Exam: strength 5/5 throughout Psych mental status grossly normal Skin no rashes or lesions noted General Skin Exam: Negative for jaundice or pallor MDM MDM MDM Narrative Medical decision making narrative: Patient arrived to the ER with stable vitals. She reported waking with upper abdominal discomfort. She has a past medical history of pancreatitis. With pain in the upper mid abdomen that is reproducible on exam there is concern for acute pancreatitis versus biliary colic versus acute cholecystitis. As she has had multiple abdominal surgeries there is also concern for ileus versus small bowel obstruction. The presentation is atypical for acute coronary syndrome and therefore do not feel there is need for troponin but an EKG was obtained which shows normal sinus rhythm without ischemic finding. As patient could have a potential lower lobe pneumonia causing GI symptoms a chest x-ray was ordered. This revealed a large hiatal hernia but no signs of lung pathology which correlates with her normal pulse ox and overall clear breath sounds. With concern for acute pancreatitis or an obstruction as a cause of her upper abdominal pain I did elect to perform a CT with IV contrast. CT scan revealed constipation with previous surgical changes but no signs of abscess or obstruction. Therefore this time with stable labs normal EKG improvement of her pain and blood pressure and the fact that her CT does not reveal signs of obstruction or acute infection there is no need for further workup and she is otherwise safe for discharge. History & Record Review Discussion w/independent historian: Patient Lab Data Attestation: I reviewed the patient's lab results. Labs: Laboratory Results - last 24 hr 06/06/24 05:44 WBC 11.4 H RBC 4.22 Hgb 12.5 Hct 38.0 MCV 90.0 MCH 29.6 MCHC 32.9 RDW Std Deviation 44.9 H RDW Coeff of Brandon 13.6 Plt Count 296 MPV 10.0 Immature Gran % (Auto) 0.400 Neut % (Auto) 79.7 H Lymph % (Auto) 9.1 L Sullivan % (Auto) 6.5 Eos % (Auto) 3.6 Baso % (Auto) 0.7 Absolute Neuts (auto) 9.1 H Absolute Lymphs (auto) 1.03 Nucleated RBC % 0 Sodium 138 Potassium 4.0 Chloride 107 Carbon Dioxide 26.0 Anion Gap 5 BUN 22 H Creatinine 0.93 Estim Creat Clear Calc 45.82 Est GFR (MDRD) Af Amer 75 Est GFR (MDRD) Non-Af 62 BUN/Creatinine Ratio 23.8 H Glucose 128 H Lactic Acid 1.4 Calcium 8.9 Total Bilirubin 0.30 Direct Bilirubin 0.10 AST 20 ALT 19 Alkaline Phosphatase 88 Total Protein 6.9 Albumin 3.6 Globulin 3.3 Lipase 32 Radiography Diagnostic Testing: Clinical Impression(s) from Imaging Studies Abdomen/Pelvis CT 06/06/24 05:19 IMPRESSION: 1. No evidence of acute pancreatitis. 2. Large hiatal hernia. 3. Constipation. 4. Additional nonacute findings as detailed above. Electronically Signed: Juan Villatoro MD at 8:41 EST , Chest X-Ray 06/06/24 06:12 IMPRESSION: Large hiatal hernia. Electronically Signed: Juan Villatoro MD at 8:17 EST , 2 view chest x-ray as interpreted by the emergency medicine physician reveals a large hiatal hernia without acute infiltrate pneumothorax or pleural effusion Discharge Plan Triage Chief Complaint: Shortness of Breath ED Provider: Anderson Stinson Dx/Rx/DC Orders Clinical Impression: Constipation, Upper abdominal pain, Hernia, hiatal, Hirschsprung's disease, Essential hypertension Instructions: Abdominal Pain, Treating Constipation, ED Hiatal Hernia Prescriptions: New polyethylene glycol 3350 [Miralax] 17 gram/dose powder 17 g PO DAILY Qty: 510 2RF No Action multivitamin 1 EACH tablet 1 ea PO DAILY diltiazem HCl 420 MG capsule,extended release 24 hr 420 mg PO DAILY tramadol 50 MG tablet 50 mg PO Q6H PRN PRN (Reason: Pain) ascorbic acid (vitamin C) 500 MG tablet 500 mg PO DAILY@0800 levothyroxine 50 MCG tablet 50 mcg PO DAILY losartan 25 MG tablet 25 mg PO BID esomeprazole magnesium 20 MG capsule 10 mg PO QHS cholecalciferol (vitamin D3) 1,000 UNIT capsule 500 unit PO DAILY pravastatin 10 mg tablet 20 mg PO QHS venlafaxine 37.5 mg capsule,extended release 24hr 37.5 mg PO DAILY venlafaxine 150 mg capsule,extended release 24hr 150 mg PO DAILY tolterodine 4 mg capsule,extended release 24hr 4 mg PO DAILY Other Ambulatory Orders: Gallbladder (Routine) Facility: [facility] - Location: [facility] Ordered By: Dr. Anderson Stinson Primary Care Provider: Jordi Corona Referrals: Jordi Corona MD [Primary Care Provider] - Activity Restrictions/Additional Instructions: Your workup today revealed no signs of heart damage or lung pathology such as pneumonia. Your CT scan showed constipation but no signs of infection and there was no obvious gallstones. With upper abdominal pain there is still possibility of nonradiopaque gallstones or a malfunctioning gallbladder and therefore please obtain your outpatient gallbladder ultrasound to further assess this. Continue with your Colace. MiraLAX daily to help with constipation and return to the ER should you have any further concerns or worsening of symptoms Print Language: Kinyarwanda Disposition Disposition: Home, Self Care
[2024-06-06 07:42] VITALS: O2SAT 87; O2SAT 94
[2024-06-06 08:54] VITALS: BP 126/72; PULSE 78; RESP 18; TEMP 36.8; O2SAT 94
== END 2024-06-06 09:13 | disposition home or self-care (01) ==
PROVIDERS: Emergency Provider Emergency Medicine; PCP Internal Medicine; Visit Provider Emergency Medicine
DX: K59.00 Constipation, unspecified (principal); Q43.1 Hirschsprung's disease; K44.9 Diaphragmatic hernia without obstruction or gangrene; R06.02 Shortness of breath; I10 Essential (primary) hypertension; E78.5 Hyperlipidemia, unspecified; R10.10 Upper abdominal pain, unspecified; K21.9 Gastro-esophageal reflux disease without esophagitis; Z79.899 Other long term (current) drug therapy
CPT/HCPCS: 71046; 74177; 80048; 80076; 83605; 83690; 85025; 93005; 96361; 96374; 96375; 99283; Q9967; A4216; J2405

== ENCOUNTER → 2024-06-15 | Outpatient (CLI) | payer MEDICARE, BC, SELFPAY ==
--- NOTE | 2024-06-15 09:33 | US_ITS ---
INDICATION: Upper abdominal pain EXAMINATION: Ultrasound US Abdomen Limited (quadrant) TECHNIQUE: Ferguson scale and color doppler imaging was performed of the right upper quadrant. COMPARISON: FINDINGS: LIVER: There is normal echotexture measuring 16 cm. No focal hepatic lesion. There is no free fluid. GALLBLADDER AND BILIARY TREE: No shadowing gallstone, pericholecystic fluid or gallbladder wall thickening is demonstrated. The proximal common bile duct measures 3.6 mm, which is within normal limits for the patient''s age. Songraphic Stack''s sign: Negative. PANCREAS: No focal abnormality is demonstrated in the pancreas. Limited visualization of the pancreatic tail. No pancreatic ductal dilatation. RIGHT KIDNEY: 9.7 x 3.6 x 3.0 cm. The cortex is 6 mm. No hydronephrosis. No calculi. US/Gallbladder IMPRESSION: No acute sonographic abnormality is demonstrated in the right upper quadrant. Electronically Signed: Hipolito Yang DO at 16:49 EST ,
== END | disposition home or self-care (01) ==
LOC: US 09:32
PROVIDERS: PCP Internal Medicine; Referring Provider Emergency Medicine; Visit Provider Emergency Medicine
DX: R10.10 Upper abdominal pain, unspecified (principal)
CPT/HCPCS: 76705